=== PATIENT | female | born 1985 | race Caucasian/White ===

== ENCOUNTER 2016-06-10 12:41 | Emergency (ER) | END 2016-06-10 17:18 | disposition home or self-care (01) ==

== ENCOUNTER 2016-09-03 18:56 | Emergency (ER) | payer OTHER ==
[2016-09-03] MEDS ORDERED: KETOROLAC 30 MG/ML VIAL IVP STA (19:34)
[2016-09-03] MEDS ORDERED: MAGNESIUM SULFATE 2 GRAM 50 ML IV ONE ×2 (19:34→19:48)
[2016-09-03] MEDS ORDERED: DEXAMETHASONE 10 MG/ML VIAL IVP STA (19:34)
[2016-09-03] MEDS ORDERED: SODIUM CHLORIDE 0.9% 1,000 ML IV ONE (19:35)
[2016-09-03] MEDS ORDERED: KETOROLAC 30 MG/ML VIAL ONE (19:48)
[2016-09-03] MEDS ORDERED: DEXAMETHASONE 10 MG/ML VIAL ONE (19:48)
== END 2016-09-03 21:02 | disposition home or self-care (01) ==
DX: G43.909 Migraine, unspecified, not intractable, without status migrainosus (principal); R11.0 Nausea

== ENCOUNTER 2016-09-07 14:21 | Emergency (ER) | payer OTHER ==
[2016-09-07] MEDS ORDERED: diphenhydrAMINE INJ 50 MG/ML VIAL IVP STA (16:36)
[2016-09-07] MEDS ORDERED: DEXAMETHASONE 10 MG/ML VIAL IVP STA (16:36)
[2016-09-07] MEDS ORDERED: PROMETHAZINE INJ 25 MG in SODIUM CHLORIDE 0.9% 50 ML IV STA (16:36)
[2016-09-07] MEDS ORDERED: KETOROLAC 30 MG/ML VIAL IVP STA (16:36)
[2016-09-07] MEDS ORDERED: SODIUM CHLORIDE 0.9% 1,000 ML IV ONE ×2 (16:36→16:54)
[2016-09-07] MEDS ORDERED: diphenhydrAMINE INJ 50 MG/ML VIAL ONE (16:54)
[2016-09-07] MEDS ORDERED: PROMETHAZINE 25 MG/1 ML VIAL ONE (16:54)
[2016-09-07] MEDS ORDERED: KETOROLAC 30 MG/ML VIAL ONE (16:54)
[2016-09-07] MEDS ORDERED: SODIUM CHLORIDE 0.9% MINIBAG 100 ML IV ONE (16:54)
[2016-09-07] MEDS ORDERED: DEXAMETHASONE 10 MG/ML VIAL ONE (16:54)
== END 2016-09-07 20:03 | disposition left against medical advice (07) ==
DX: F33.2 Major depressive disorder, recurrent severe without psychotic features (principal); R45.851 Suicidal ideations; G43.909 Migraine, unspecified, not intractable, without status migrainosus; Z53.20 Procedure and treatment not carried out because of patient's decision for unspecified reasons

== ENCOUNTER 2016-09-08 10:38 | Emergency (ER) | payer OTHER ==
--- NOTE | 2016-09-08 12:10 | ED Physician Documentation ---
PD HPI MHE - Stated complaint Stated Complaint: MHE - Chief complaint Chief Complaint: MHE - History obtained from History obtained from: Patient, Friend - History of Present Illness Primary symptom: Other (31-year-old woman returns as directed this morning for continued attempts at psychiatric placement. She is suicidal with vague plan at this juncture, see my note from yesterday. She is high risk for suicide. She denies any drug or alcohol use overnight except for prescribed medications.) Review of Systems Ten Systems: 10 systems reviewed and negative Constitutional: reports: Reviewed and negative Throat: reports: Reviewed and negative Cardiac: reports: Reviewed and negative Respiratory: reports: Reviewed and negative PD PAST MEDICAL HISTORY - Past Medical History Cardiovascular: None Respiratory: None Neuro: Headache/migraine Endocrine/Autoimmune: None GI: GERD Psych: None - Past Surgical History Past Surgical History: Yes General: Cholecystectomy, Appendectomy HEENT: Tonsil/Adenoidectomy Derm: Other - Present Medications Home Medications: Ambulatory Orders Medication Instructions Recorded Confirmed Alprazolam [Xanax] 1 tab PO .FREQ PRN 09/03/16 09/08/16 Hydrocodone/Acetaminophen 0 mg PO .FREQ 09/07/16 09/08/16 [Hydrocodon-Acetaminophen 5-325] Promethazine [Phenergan] 0 mg PO .FREQ 09/07/16 09/08/16 - Allergies Allergies/Adverse Reactions: Allergies Allergy/AdvReac Type Severity Reaction Status Date / Time Penicillins Allergy Severe anaphalaxis Verified 09/08/16 11:02 acetaminophen [From Percocet] Allergy Mild gi Verified 09/08/16 11:02 cephalexin monohydrate * Allergy Mild Rash Verified 09/08/16 11:02 [From Keflex] latex Allergy Mild Rash Verified 09/08/16 11:02 levofloxacin [From Levaquin] Allergy Mild Rash Verified 09/08/16 11:02 ondansetron HCl * Allergy Mild Rash Verified 09/08/16 11:02 [From Zofran (as hydrochloride)] oxycodone HCl * Allergy Mild gi Verified 09/08/16 11:02 [From Percocet] morphine AdvReac Intermediate Anxiety Verified 09/08/16 11:02 - Social History Does the pt smoke?: No Smoking Status: Never smoker Does the pt drink ETOH?: No Does the pt have substance abuse?: No - Family History Family history: reports: Non contributory - Immunizations Immunizations are current?: Yes - POLST Patient has POLST: No PD ED PE NORMAL - Vitals Vital signs reviewed: Yes - General General: Alert and oriented X 3, Other (Still seems depressed, but not as tearful is yesterday.) - HEENT HEENT: PERRL, EOMI - Neck Neck: Supple, no meningeal sign, No bony TTP - Cardiac Cardiac: RRR, No murmur - Respiratory Respiratory: No respiratory distress, Clear bilaterally - Abdomen Abdomen: Normal bowel sounds, Soft, Non tender - Back Back: No CVA TTP, No spinal TTP - Derm Derm: Normal color, Warm and dry - Extremities Extremities: No edema, No calf tenderness / cord - Neuro Neuro: Alert and oriented X 3, Normal speech - Psych Psych: Normal mood, Normal affect Results - Vitals Vitals: Vital Signs - 24 hr 09/08/16 10:43 Temperature 36.9 C Heart Rate 70 Respiratory 18 Rate Blood Pressure 111/83 H O2 Saturation 100 Oxygen O2 Source Room air - Labs Labs: Laboratory Tests 09/08/16 09/08/16 12:20 12:20 WBC 11.3 H RBC 4.69 Hgb 13.0 Hct 38.7 MCV 82.5 MCH 27.7 MCHC 33.5 RDW 15.4 H Plt Count 280 MPV 8.0 Neut # 8.1 H Lymph # 2.4 [place] # 0.8 Eos # 0.0 Baso # 0.0 Absolute Nucleated RBC 0.00 Nucleated RBCs 0.0 Sodium 140 Potassium 3.3 L Chloride 109 Carbon Dioxide 24 Anion Gap 7.0 BUN 12 Creatinine 0.6 Estimated GFR (MDRD) 117 Glucose 133 H Calcium 9.3 Total Bilirubin 0.4 AST 19 ALT 20 Alkaline Phosphatase 73 Total Protein 6.9 Albumin 4.0 Globulin 2.9 Albumin/Globulin Ratio 1.4 Lipase 35 Ethyl Alcohol < 5.0 PD MEDICAL DECISION MAKING - ED course ED course: Social work was able to arrange for a psychiatric bed for this young woman. Potassium was repleted orally. Departure - Departure Disposition: 65 Psych Hosp/Unit DC/Xfer Clinical Impression: Depression Qualifiers: Depression Type: major depressive disorder Major depression recurrence: recurrent Active/Remission status: currently active Major depression episode severity: severe Psychotic features: without psychotic features Qualified Code(s ): F33.2 - Major depressive disorder, recurrent severe without psychotic features Condition: Stable
[2016-09-08 12:34] LABS: BASOPHILS % (AUTO) 0.3 %; EOSINOPHILS % (AUTO) 0.2 %; HCT - HEMATOCRIT 38.7 % (37.0-47.0); LYMPHOCYTES # (AUTO) 2.4 10^3/uL (1.5-3.5); LYMPHOCYTES % (AUTO) 21.1 %; MEAN CORPUSCULAR HEMOGLOBIN 27.7 pg (27.0-31.0); MEAN CORPUSCULAR HGB CONC 33.5 g/dL (32.0-36.0); MEAN CORPUSCULAR VOLUME 82.5 fL (81.0-99.0); MONOCYTES # (AUTO) 0.8 10^3/uL (0.0-1.0); MONOCYTES % (AUTO) 6.7 %; NEUTROPHILS # (AUTO) 8.1 10^3/uL (1.5-6.6); NEUTROPHILS % (AUTO) 71.7 %; RED BLOOD COUNT 4.69 10^6/uL (4.20-5.40); RED CELL DISTRIBUTION WIDTH 15.4 % (12.0-15.0); UNCORRECTED WHITE BLOOD COUNT 11.3 x10^3/uL; WHITE BLOOD COUNT 11.3 x10^3/uL (4.8-10.8)
[2016-09-08 12:46] LABS: ALBUMIN/GLOBULIN RATIO 1.4 (1.0-2.2); BILIRUBIN,TOTAL 0.4 mg/dL (0.2-1.0); BUN - BLOOD UREA NITROGEN 12 mg/dL (6-20); CALCIUM 9.3 mg/dL (8.5-10.3); CARBON DIOXIDE - CO2 24 mmol/L (21-32); CHLORIDE 109 mmol/L (101-111); CREATININE 0.6 mg/dL (0.4-1.0); GFR - MDRD 117 (>89); GLUCOSE 133 mg/dL (70-100); LIPASE 35 U/L (22-51); POTASSIUM 3.3 mmol/L (3.5-5.0); SODIUM 140 mmol/L (135-145); TOTAL PROTEIN 6.9 g/dL (6.7-8.2)
[2016-09-08] MEDS ORDERED: POTASSIUM CHLORIDE 20 MEQ TABLET PO ONE (12:58)
[2016-09-08] MEDS: POTASSIUM CHLORIDE 20 MEQ TABLET PO STA (13:01)
[2016-09-08 15:42] VITALS: BP 118/80
== END 2016-09-08 17:59 ==
LOC: ED 10:38
DX: F33.2 Major depressive disorder, recurrent severe without psychotic features (principal); R45.851 Suicidal ideations; K21.9 Gastro-esophageal reflux disease without esophagitis
CPT/HCPCS: 36415; 80053; 80306; 80320; 83690; 85025; 99283; 99284

== ENCOUNTER 2017-10-08 05:37 | Emergency (ER) | payer OTHER ==
[2017-10-08] MEDS ORDERED: HYDROcod/ACETAM 5/325 MG TABLET PO STA (05:53)
[2017-10-08] MEDS ORDERED: PROMETHAZINE 25 MG TABLET PO STA (06:02)
--- NOTE | 2017-10-08 06:06 | ED Physician Documentation ---
History of Present Illness - Stated complaint Stated Complaint: FEMALE - Chief complaint Chief Complaint: Abd Pain - History obtained from History obtained from: Patient, Family - History of Present Illness Timing: Today Pain level max: 8 Pain level now: 8 Improved by: nothing Worsened by: nothing - Additonal information Additional information: Patient is a 32-year-old female who presents to the emergency department with vaginal bleeding this morning. States she is 2 weeks status post a miscarriage. States her hCGs have been decreasing appropriately per her software product specialist. She has lower abdominal and lower back cramping. States she is still having vaginal bleeding with clots, but does not know how much she is bleeding. No lightheadedness, no dyspnea, no shortness of breath. No syncope or near syncope Review of Systems Ten Systems: 10 systems reviewed and negative Constitutional: denies: Fever, Chills Ears: denies: Ear pain Nose: denies: Rhinorrhea / runny nose, Congestion Throat: denies: Sore throat Cardiac: denies: Chest pain / pressure Respiratory: denies: Cough GI: denies: Abdominal Pain, Nausea, Vomiting, Constipation, Diarrhea, Hematemesis, Bloody / black stool : reports: Dysuria, Frequency, Hesitancy, Hematuria. denies: Now EGA Skin: denies: Rash Musculoskeletal: denies: Neck pain, Back pain Neurologic: denies: Headache PD PAST MEDICAL HISTORY - Past Medical History Cardiovascular: None Respiratory: None Neuro: Headache/migraine Endocrine/Autoimmune: None GI: GERD Psych: None - Past Surgical History Past Surgical History: Yes General: Cholecystectomy, Appendectomy HEENT: Tonsil/Adenoidectomy Derm: Other - Present Medications Home Medications: Ambulatory Orders Medication Instructions Recorded Confirmed Alprazolam [Xanax] 1 tab PO .FREQ PRN 09/03/16 09/08/16 Hydrocodone/Acetaminophen 0 mg PO .FREQ 09/07/16 09/08/16 [Hydrocodon-Acetaminophen 5-325] Promethazine [Phenergan] 0 mg PO .FREQ 09/07/16 09/08/16 - Allergies Allergies/Adverse Reactions: Allergies Allergy/AdvReac Type Severity Reaction Status Date / Time Penicillins Allergy Severe anaphalaxis Verified 10/08/17 05:44 acetaminophen [From Percocet] Allergy Mild gi Verified 10/08/17 05:44 cephalexin monohydrate * Allergy Mild Rash Verified 10/08/17 05:44 [From Keflex] latex Allergy Mild Rash Verified 10/08/17 05:44 levofloxacin [From Levaquin] Allergy Mild Rash Verified 10/08/17 05:44 ondansetron HCl * Allergy Mild Rash Verified 10/08/17 05:44 [From Zofran (as hydrochloride)] oxycodone HCl * Allergy Mild gi Verified 10/08/17 05:44 [From Percocet] morphine AdvReac Intermediate Anxiety Verified 10/08/17 05:44 - Social History Does the pt smoke?: No Smoking Status: Never smoker Does the pt drink ETOH?: No Does the pt have substance abuse?: No - Immunizations Immunizations are current?: Yes - POLST Patient has POLST: No PD ED PE NORMAL - Vitals Vital signs reviewed: Yes - General General: Alert and oriented X 3, No acute distress, Well developed/nourished - HEENT HEENT: PERRL, Moist mucous membranes - Neck Neck: Supple, no meningeal sign - Cardiac Cardiac: RRR, Strong equal pulses - Respiratory Respiratory: No respiratory distress, Clear bilaterally - Abdomen Abdomen: Soft, Non tender, Non distended - Female Female : Dieing Out Machine Operator present (Carmita Mo RN), Other (normal external exam. normal internal exam. No bleeding.) - Back Back: No spinal TTP, Other (mild B CVAT.) - Derm Derm: Warm and dry - Extremities Extremities: No edema, No calf tenderness / cord - Neuro Neuro: Alert and oriented X 3 - Psych Psych: Normal mood, Normal affect Results - Vitals Vitals: Vital Signs - 24 hr 10/08/17 10/08/17 05:42 07:25 Temperature 36.7 C Heart Rate 77 68 Respiratory 18 18 Rate Blood Pressure 123/85 H 125/87 H O2 Saturation 100 96 Oxygen O2 Source Room air - Labs Labs: Laboratory Tests 10/08/17 10/08/17 10/08/17 06:00 06:00 06:00 WBC 10.9 H RBC 4.89 Hgb 12.5 Hct 38.4 MCV 78.6 L MCH 25.5 L MCHC 32.5 RDW 15.6 H Plt Count 275 MPV 7.6 L Neut # 8.1 H Lymph # 2.1 [place] # 0.4 Eos # 0.2 Baso # 0.1 Absolute Nucleated RBC 0.00 Nucleated RBC % 0.0 Sodium 138 Potassium 3.4 L Chloride 106 Carbon Dioxide 27 Anion Gap 5.0 L BUN 10 Creatinine 0.6 Estimated GFR (MDRD) 116 Glucose 103 H Calcium 9.0 Total Bilirubin 0.2 AST 18 ALT 17 Alkaline Phosphatase 84 Total Protein 7.1 Albumin 4.0 Globulin 3.1 Albumin/Globulin Ratio 1.3 Lipase 39 HCG, Quant < 0.60 Urine Color Urine Clarity Urine pH Ur Specific [place] Urine Protein Urine Glucose (UA) Urine Ketones Urine Occult Blood Urine Nitrite Urine Bilirubin Urine Urobilinogen Ur Leukocyte Esterase Urine RBC Urine WBC Ur Squamous Epith Cells Urine Bacteria Ur Microscopic Review Urine Culture Comments Blood Type Antibody Screen 10/08/17 10/08/17 06:00 06:00 WBC RBC Hgb Hct MCV MCH MCHC RDW Plt Count MPV Neut # Lymph # [place] # Eos # Baso # Absolute Nucleated RBC Nucleated RBC % Sodium Potassium Chloride Carbon Dioxide Anion Gap BUN Creatinine Estimated GFR (MDRD) Glucose Calcium Total Bilirubin AST ALT Alkaline Phosphatase Total Protein Albumin Globulin Albumin/Globulin Ratio Lipase HCG, Quant Urine Color RED/BLOODY Urine Clarity BLOODY Urine pH 7.5 Ur Specific [place] >=1.030 H Urine Protein 100 H Urine Glucose (UA) NEGATIVE Urine Ketones NEGATIVE Urine Occult Blood LARGE H Urine Nitrite NEGATIVE Urine Bilirubin NEGATIVE Urine Urobilinogen 0.2 (NORMAL) Ur Leukocyte Esterase NEGATIVE Urine RBC TNTC H Urine WBC 0-3 Ur Squamous Epith Cells NONE SEEN Urine Bacteria None Seen Ur Microscopic Review INDICATED Urine Culture Comments NOT INDICATED Blood Type O POSITIVE Antibody Screen NEGATIVE PD MEDICAL DECISION MAKING - ED course Complexity details: reviewed results, re-evaluated patient, considered differential, d/w patient, d/w family ED course: Patient is a 32-year-old female who presents to the emergency department with what initially was thought to be vaginal bleeding, but turns out to be hematuria. No bleeding on pelvic examination. She also states that she is having dysuria and frequency, though there are no white blood cells or bacteria seen on her urinalysis. There is a family history of kidney stones. A CT scan will be ordered and followed up by Dr. Bryant. Her pain is well controlled currently. Patient is well-appearing, nontoxic. See Dr. Bryant's note for final disposition. This document was made in part using voice recognition software. While efforts are made to proofread this document, sound alike and grammatical errors may occur. Departure - Departure Clinical Impression: Hematuria Qualifiers: Hematuria type: gross Qualified Code(s): R31.0 - Gross hematuria Condition: Stable
[2017-10-08 06:13] LABS: BASOPHILS # (AUTO) 0.1 10^3/uL (0.0-0.1); BASOPHILS % (AUTO) 0.5 %; EOSINOPHILS # (AUTO) 0.2 10^3/uL (0.0-0.7); EOSINOPHILS % (AUTO) 1.5 %; HGB - HEMOGLOBIN 12.5 g/dL (12.0-16.0); LYMPHOCYTES # (AUTO) 2.1 10^3/uL (1.5-3.5); LYMPHOCYTES % (AUTO) 19.3 %; MEAN CORPUSCULAR HEMOGLOBIN 25.5 pg (27.0-31.0); MEAN CORPUSCULAR HGB CONC 32.5 g/dL (32.0-36.0); MEAN CORPUSCULAR VOLUME 78.6 fL (81.0-99.0); MEAN PLATELET VOLUME 7.6 fL (7.9-10.8); MONOCYTES # (AUTO) 0.4 10^3/uL (0.0-1.0); NEUTROPHILS # (AUTO) 8.1 10^3/uL (1.5-6.6); NEUTROPHILS % (AUTO) 74.7 %; PLT - PLATELET COUNT 275 10^3/uL (130-450); RED BLOOD COUNT 4.89 10^6/uL (4.20-5.40); RED CELL DISTRIBUTION WIDTH 15.6 % (12.0-15.0); WHITE BLOOD COUNT 10.9 x10^3/uL (4.8-10.8)
[2017-10-08 06:33] LABS: ALBUMIN/GLOBULIN RATIO 1.3 (1.0-2.2); BILIRUBIN,TOTAL 0.2 mg/dL (0.2-1.0); CREATININE 0.6 mg/dL (0.4-1.0); TOTAL PROTEIN 7.1 g/dL (6.7-8.2)
[2017-10-08 06:37] LABS: BILIRUBIN,URINE NEGATIVE (NEGATIVE); GLUCOSE, URINE (UA) NEGATIVE (NEGATIVE); KETONES,URINE (UA) NEGATIVE (NEGATIVE); LEUKOCYTE ESTERASE, URINE NEGATIVE (NEGATIVE); NITRITE,URINE NEGATIVE (NEGATIVE); OCCULT BLOOD,URINE LARGE (NEGATIVE); PH,URINE 7.5 PH (5.0-7.5); PROTEIN,URINE 100 mg/dL (NEGATIVE); UROBILINOGEN,URINE 0.2 (NORMAL) E.U./dL (NORMAL)
[2017-10-08 06:50] LABS: CLARITY,URINE BLOODY (CLEAR)
[2017-10-08 06:55] LABS: BACTERIA,URINE None Seen /HPF (None Seen); RBC,URINE TNTC /HPF (0-5); SQUAMOUS EPITHELIAL CELL,UR NONE SEEN (<= Few)
[2017-10-08] MEDS ORDERED: IOPAMIDOL-300 100 ML VIAL ONE (07:40)
[2017-10-08] MEDS ORDERED: IOPAMIDOL-300 100 ML VIAL IVP ONE (07:53)
--- NOTE | 2017-10-08 08:11 | CT Preliminary Report ---
Exam: CT ABDOMEN/PELVIS W/ IMPRESSION: 1. Negative CT abdomen and pelvis without findings to explain pain or hematuria. 2. 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 [facility] SITE ID: [id number]
--- NOTE | 2017-10-08 08:12 | CT Report ---
EXAM: CT ABDOMEN AND PELVIS EXAM DATE: 10/08/2017 07:52 AM. CLINICAL HISTORY: B flank pain, dysuria, hematuria. Prior cholecystectomy, appendectomy, abdominoplas ty. COMPARISONS: CT angiogram chest 12/27/2012. TECHNIQUE: Routine helical CT imaging was performed through the abdomen and pelvis. IV contrast: ISOV UE 300 100mL. Enteric contrast: No. Reconstructions: Coronal and sagittal. In accordance with CT protocol optimization, one or more of the following dose reduction techniques w ere utilized for this exam: automated exposure control, adjustment of mA and/or KV based on patient s ize, or use of iterative reconstructive technique. FINDINGS: Lung Bases: Minimal physiologic dependent bibasilar atelectasis. Liver: Normal. No masses. Gallbladder/Bile Ducts: Gallbladder surgically absent. No ductal dilatation. Spleen: Normal. Pancreas: Normal. Adrenal Glands: Normal. 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 No masses or hydronephrosis. No gross stones. No perinephric edema. Enhancement is normal and symmetric. Peritoneal Cavity/Bowel: Nonopacified stomach and small bowel are nondistended. The appendix is surgi logan absent. There is a small amount of formed stool in the colon. There is no focal pericolonic fat stranding. There is no lymphadenopathy, ascites, or pneumoperitoneum. Pelvic Organs: Small volume bladder. No lateral calculi. No perivesical edema. Anteverted uterus norm al in size. Ovaries are normal. Vasculature: No aneurysms or other significant abnormality. Bones: No significant abnormality. Other: Medialization of bilateral rectus abdominis muscles consistent with iron abdominoplasty. No he rnia is identified. Bilateral breast implants are incompletely visualized. IMPRESSION: 1. Negative CT abdomen and pelvis without findings to explain pain or hematuria. 2. 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 [facility] Referring Provider Line: [phone] SITE ID: [id number]
--- NOTE | 2017-10-08 08:50 | ED Physician Documentation ---
PD HPI ABD PAIN - Stated complaint Stated Complaint: FEMALE - Chief complaint Chief Complaint: Abd Pain PD PAST MEDICAL HISTORY - Past Medical History Cardiovascular: None Respiratory: None Neuro: Headache/migraine Endocrine/Autoimmune: None GI: GERD Psych: None - Past Surgical History Past Surgical History: Yes General: Cholecystectomy, Appendectomy HEENT: Tonsil/Adenoidectomy Derm: Other - Present Medications Home Medications: Ambulatory Orders Medication Instructions Recorded Confirmed Alprazolam [Xanax] 1 tab PO .FREQ PRN 09/03/16 09/08/16 Hydrocodone/Acetaminophen 0 mg PO .FREQ 09/07/16 09/08/16 [Hydrocodon-Acetaminophen 5-325] Promethazine [Phenergan] 0 mg PO .FREQ 09/07/16 09/08/16 HYDROcod/ACETAM 5/325 [Vicodin 1 - 2 ea PO Q6H PRN #20 tablet 10/08/17 5/325] Promethazine [Phenergan] 25 - 50 mg PO Q6H PRN #10 tab 10/08/17 - Allergies Allergies/Adverse Reactions: Allergies Allergy/AdvReac Type Severity Reaction Status Date / Time Penicillins Allergy Severe anaphalaxis Verified 10/08/17 05:44 acetaminophen [From Percocet] Allergy Mild gi Verified 10/08/17 05:44 cephalexin monohydrate * Allergy Mild Rash Verified 10/08/17 05:44 [From Keflex] latex Allergy Mild Rash Verified 10/08/17 05:44 levofloxacin [From Levaquin] Allergy Mild Rash Verified 10/08/17 05:44 ondansetron HCl * Allergy Mild Rash Verified 10/08/17 05:44 [From Zofran (as hydrochloride)] oxycodone HCl * Allergy Mild gi Verified 10/08/17 05:44 [From Percocet] morphine AdvReac Intermediate Anxiety Verified 10/08/17 05:44 - Social History Does the pt smoke?: No Smoking Status: Never smoker Does the pt drink ETOH?: No Does the pt have substance abuse?: No - Immunizations Immunizations are current?: Yes - POLST Patient has POLST: No Results - Vitals Vitals: Vital Signs - 24 hr 10/08/17 10/08/17 10/08/17 08:45 09:57 10:48 Heart Rate 70 68 78 Respiratory 18 16 18 Rate Blood Pressure 116/79 126/80 126/81 H O2 Saturation 96 98 98 Oxygen O2 Source Room air - Labs Labs: Laboratory Tests 10/08/17 10/08/17 10/08/17 06:00 06:00 06:00 WBC 10.9 H RBC 4.89 Hgb 12.5 Hct 38.4 MCV 78.6 L MCH 25.5 L MCHC 32.5 RDW 15.6 H Plt Count 275 MPV 7.6 L Neut # 8.1 H Lymph # 2.1 [place] # 0.4 Eos # 0.2 Baso # 0.1 Absolute Nucleated RBC 0.00 Nucleated RBC % 0.0 Sodium 138 Potassium 3.4 L Chloride 106 Carbon Dioxide 27 Anion Gap 5.0 L BUN 10 Creatinine 0.6 Estimated GFR (MDRD) 116 Glucose 103 H Calcium 9.0 Total Bilirubin 0.2 AST 18 ALT 17 Alkaline Phosphatase 84 Total Protein 7.1 Albumin 4.0 Globulin 3.1 Albumin/Globulin Ratio 1.3 Lipase 39 HCG, Quant < 0.60 Urine Color Urine Clarity Urine pH Ur Specific [place] Urine Protein Urine Glucose (UA) Urine Ketones Urine Occult Blood Urine Nitrite Urine Bilirubin Urine Urobilinogen Ur Leukocyte Esterase Urine RBC Urine WBC Ur Squamous Epith Cells Urine Bacteria Ur Microscopic Review Urine Culture Comments Blood Type Antibody Screen 10/08/17 10/08/17 06:00 06:00 WBC RBC Hgb Hct MCV MCH MCHC RDW Plt Count MPV Neut # Lymph # [place] # Eos # Baso # Absolute Nucleated RBC Nucleated RBC % Sodium Potassium Chloride Carbon Dioxide Anion Gap BUN Creatinine Estimated GFR (MDRD) Glucose Calcium Total Bilirubin AST ALT Alkaline Phosphatase Total Protein Albumin Globulin Albumin/Globulin Ratio Lipase HCG, Quant Urine Color RED/BLOODY Urine Clarity BLOODY Urine pH 7.5 Ur Specific [place] >=1.030 H Urine Protein 100 H Urine Glucose (UA) NEGATIVE Urine Ketones NEGATIVE Urine Occult Blood LARGE H Urine Nitrite NEGATIVE Urine Bilirubin NEGATIVE Urine Urobilinogen 0.2 (NORMAL) Ur Leukocyte Esterase NEGATIVE Urine RBC TNTC H Urine WBC 0-3 Ur Squamous Epith Cells NONE SEEN Urine Bacteria None Seen Ur Microscopic Review INDICATED Urine Culture Comments NOT INDICATED Blood Type O POSITIVE Antibody Screen NEGATIVE - Rads (name of study) CT abd/pelvis Radiology: Prelim report reviewed, EMP read contemporaneously, See rad report ( Negative CT abdomen and pelvis without findings to explain pain or hematuria. 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 Please see Dr. Wu's report for the initial presentation. The CT scan was unremarkable, revealing no evidence to account for the patient's symptoms. It was done with IV contrast so a ureteral stone may not have been apparent. Given the patient's right flank pain and hematuria, I suspect renal colic as the cause of her symptoms. Her urinalysis reveals no evidence to suggest urinary tract infection. test is negative, making ectopic extremely unlikely. Her presentation does not suggest ovarian torsion or ruptured ovarian cyst. She has previously undergone appendectomy. Treatment in the emergency department after she returned from CT scan, included administration of ketorolac 30 mg IV. This resolved her pain. I discussed with her and her the results of the CT scan, suspected diagnosis, symptomatic treatment and outpatient follow-up, as well as potentially worrisome signs or symptoms that should prompt reevaluation in the emergency department. She is being discharged with a prescription for Phenergan and for Vicodin, 20 tablets. Departure - Departure Disposition: 01 Home, Self Care Clinical Impression: Renal colic on right side Hematuria Qualifiers: Hematuria type: gross Qualified Code(s): R31.0 - Gross hematuria Condition: Stable Instructions: ED Stone Renal W Colic Follow-Up: [facility] [Provider Group] Prescriptions: HYDROcod/ACETAM 5/325 [Vicodin 5/325] 1 - 2 ea PO Q6H PRN #20 tablet PRN Reason: Pain Promethazine [Phenergan] 25 - 50 mg PO Q6H PRN #10 tab PRN Reason: Nausea / Vomiting Comments: Drink plenty of fluids. You can use Vicodin as prescribed if needed for pain. You can use Phenergan as prescribed if needed for nausea. Follow up with your primary physician within 1 week. Call to schedule appointment. Return to the emergency department if you develop increasing pain, fever, persistent vomiting, or otherwise worsening symptoms. Discharge Date/Time: 10/08/17 10:52
[2017-10-08] MEDS ORDERED: KETOROLAC 60 MG/2 ML VIAL IVP STA (08:55)
[2017-10-08 10:48] VITALS: BP 126/81
== END 2017-10-08 10:52 | disposition home or self-care (01) ==
LOC: ED 05:37
DX: R31.0 Gross hematuria (principal)
CPT/HCPCS: 36415; 74177; 80053; 81001; 83690; 84702; 85025; 86850; 86900; 86901; 96374; 99284; A9270; Q0169; Q9967; 81003; 87086

== ENCOUNTER 2017-11-05 09:08 | Emergency (ER) | payer OTHER ==
[2017-11-05] MEDS ORDERED: ACETAMINOPHEN 325 MG TABLET PO STA (11:24)
--- NOTE | 2017-11-05 11:27 | ED Physician Documentation ---
History of Present Illness - Stated complaint Stated Complaint: L SIDE [id number] - Chief complaint Chief Complaint: Abd Pain - Additonal information Additional information: hx from pt miscarriage 09/27 now again exact EGA unknown but had a neg HCG in our ER 10/08 so presume < 1 month seen at [facility] 3 days ago and had sono and no IUP seen possibly a L ovarian cyst developed LLQ pain last night no vag bleed or discharge states blood type O + Review of Systems Constitutional: denies: Fever Cardiac: denies: Chest pain / pressure Respiratory: denies: Dyspnea GI: reports: Abdominal Pain : reports: Now EGA. denies: Discharge, Vaginal bleeding PD PAST MEDICAL HISTORY - Past Medical History Cardiovascular: None Respiratory: None Endocrine/Autoimmune: None GI: GERD Psych: None - Past Surgical History Past Surgical History: Yes General: Cholecystectomy, Appendectomy HEENT: Tonsil/Adenoidectomy Derm: Other - Present Medications Home Medications: Ambulatory Orders Medication Instructions Recorded Confirmed Promethazine [Phenergan] 25 - 50 mg PO Q6H PRN #10 tab 10/08/17 Pnv No.122/Iron/Folic Acid 1 each PO DAILY #30 tablet 11/05/17 [ Multi Tablet] - Allergies Allergies/Adverse Reactions: Allergies Allergy/AdvReac Type Severity Reaction Status Date / Time Penicillins Allergy Severe anaphalaxis Verified 11/05/17 09:42 acetaminophen [From Percocet] Allergy Mild gi Verified 10/08/17 05:44 cephalexin monohydrate * Allergy Mild Rash Verified 11/05/17 09:42 [From Keflex] latex Allergy Mild Rash Verified 11/05/17 09:42 levofloxacin [From Levaquin] Allergy Mild Rash Verified 11/05/17 09:42 ondansetron HCl * Allergy Mild Rash Verified 11/05/17 09:42 [From Zofran (as hydrochloride)] oxycodone HCl * Allergy Mild gi Verified 11/05/17 09:42 [From Percocet] morphine AdvReac Intermediate Anxiety Verified 11/05/17 09:42 - Social History Does the pt smoke?: No Smoking Status: Never smoker Does the pt drink ETOH?: No Does the pt have substance abuse?: No - Immunizations Immunizations are current?: Yes - POLST Patient has POLST: No PD ED PE NORMAL - Vitals Vital signs reviewed: Yes - Cardiac Cardiac: RRR - Respiratory Respiratory: No respiratory distress - Abdomen Abdomen: Other (sig lower abd TTP L > R with vol guarding) - Derm Derm: Normal color - Neuro Neuro: Alert and oriented X 3 Results - Vitals Vitals: Vital Signs - 24 hr 11/05/17 11/05/17 09:39 12:59 Temperature 36.7 C Heart Rate 72 72 Respiratory 16 16 Rate Blood Pressure 139/74 H 122/86 H O2 Saturation 100 Oxygen O2 Source Room air - Labs Labs: Laboratory Tests 11/05/17 11/05/17 11/05/17 09:52 09:52 11:25 HCG, Quant 5222.00 Urine Color YELLOW Urine Clarity CLEAR Urine pH 6.5 Ur Specific [place] 1.020 Urine Protein NEGATIVE Urine Glucose (UA) NEGATIVE Urine Ketones NEGATIVE Urine Occult Blood NEGATIVE Urine Nitrite NEGATIVE Urine Bilirubin NEGATIVE Urine Urobilinogen 0.2 (NORMAL) Ur Leukocyte Esterase NEGATIVE Ur Microscopic Review NOT INDICATED Urine Culture Comments NOT INDICATED Blood Type O POSITIVE - Rads (name of study) sono Radiology: See rad report (_ intrauterine gest sac so early for pole or yolk sac, 4w3d, lkeft corpus luteum cyst, trace FF) PD MEDICAL DECISION MAKING - ED course ED course: pt was seen at [facility] in last few days, had a pelvic, had non diag sono, states quant was 5500 today quant 5222 - concern for ectopic sono shows IUP no assisted fertility so ectopic ruled out quant concerning but two diff labs - pt advised could be a miscarriage advised to fup OB tomorrow or Thursday Departure - Departure Disposition: 01 Home, Self Care Clinical Impression: Normal IUP (intrauterine ) on ultrasound Qualifiers: Trimester: first trimester Qualified Code(s): Z34.91 - Encounter for supervision of normal , unspecified, first trimester Condition: Good Instructions: ED Care Follow-Up: [facility] Natasha Saini [Provider Group] Prescriptions: Pnv No.122/Iron/Folic Acid [ Multi Tablet] 1 each PO DAILY #30 tablet Comments: Your are The in in the uterus Your are 4 weeks and 3 days along and your due date will be about Jul 11 2018 There is a cyst on the left ovary that has leaked some fluid and that is likely causing some of your discomfort It is possible that the pain could indicate you might be having a miscarriage - but right now the ultrasound is reassuring You can go home Recommend tylenol for the pain Take your vitamins Follow up with OB at [facility] Return if worse
[2017-11-05 11:45] LABS: BILIRUBIN,URINE NEGATIVE (NEGATIVE); GLUCOSE, URINE (UA) NEGATIVE (NEGATIVE); KETONES,URINE (UA) NEGATIVE (NEGATIVE); LEUKOCYTE ESTERASE, URINE NEGATIVE (NEGATIVE); NITRITE,URINE NEGATIVE (NEGATIVE); OCCULT BLOOD,URINE NEGATIVE (NEGATIVE); PH,URINE 6.5 PH (5.0-7.5); PROTEIN,URINE NEGATIVE (NEGATIVE); UROBILINOGEN,URINE 0.2 (NORMAL) E.U./dL (NORMAL)
[2017-11-05 11:46] LABS: CLARITY,URINE CLEAR (CLEAR)
[2017-11-05 14:02] VITALS: BP 124/79
--- NOTE | 2017-11-08 12:17 | Ultrasound Report ---
FIRST TRIMESTER OB ULTRASOUND WITH TRANSVAGINAL: 11/05/2017 CLINICAL INDICATION: Early , pain, uncertain LMP. TECHNIQUE: Real-time scanning was performed with sales representative publications static images obtained. LAST MENSTRUAL PERIOD: unsure Clinical Age: 4 weeks 3 days (gestational sac MGSD) US Age: 4 weeks 3 days EFW Hadlock: -- EFW% Hadlock: -- Heart Rate: n/a EDC: 07/11/2018 (gestational sac) US EDC: 07/11/2018 BPD [place]: -- HC Hadlock: -- AC Hadlock: -- FL Hadlock: -- Presentation: -- Placental Location: n/a Cervical Length: -- closed Amniotic Fluid: -- FINDINGS There is a gestational sac seen within the endometrial canal. Mean sac diameter is 6 mm, too small to visualize yolk sac or pole. By mean gestational sac size, the dates 4 weeks 3 days. No perigestational hemorrhage is seen. The right ovary measures 2.5 x 2.1 x 1.6 cm, and appears unremarkable. The left ovary measures 3.7 x 2.5 x 2.4 cm, and demonstrates a corpus luteum. A small amount of free fluid is seen adjacent to the left ovary. IMPRESSION 1. GESTATIONAL SAC VISUALIZED IN THE ENDOMETRIAL CANAL, WITH THE DATING 4 WEEKS 3 DAYS BY GESTATIONAL SAC SIZE. THE GESTATIONAL SAC IS TOO SMALL TO ALLOW VISUALIZATION OF YOLK SAC OR POLE. TRACE FREE FLUID IN THE LEFT ADNEXA. 2. FOLLOW UP SERIAL QUANTITATIVE BETA HCG, AND CONSIDER RESCANNING IN 2 WEEKS FOR VIABILITY, IF CLINICALLY WARRANTED. TD: 11/05/2017 12:56 [place]IN
== END 2017-11-05 14:03 | disposition home or self-care (01) ==
LOC: ED 09:08
DX: Z34.91 Encounter for supervision of normal pregnancy, unspecified, first trimester (principal); Z3A.01 Less than 8 weeks gestation of pregnancy
CPT/HCPCS: 36415; 76801; 76817; 81003; 84702; 86900; 86901; 99283; A9270; 81001; 87086

== ENCOUNTER 2018-03-17 18:01 | Outpatient (CLI) | payer OTHER ==
[2018-03-17 19:22] LABS: BASOPHILS # (AUTO) 0.1 10^3/uL (0.0-0.1); BASOPHILS % (AUTO) 0.8 %; EOSINOPHILS # (AUTO) 0.1 10^3/uL (0.0-0.7); EOSINOPHILS % (AUTO) 1.9 %; HGB - HEMOGLOBIN 11.1 g/dL (12.0-16.0); LYMPHOCYTES # (AUTO) 1.3 10^3/uL (1.5-3.5); LYMPHOCYTES % (AUTO) 19.1 %; MEAN CORPUSCULAR HEMOGLOBIN 28.2 pg (27.0-31.0); MEAN CORPUSCULAR HGB CONC 33.8 g/dL (32.0-36.0); MEAN CORPUSCULAR VOLUME 83.3 fL (81.0-99.0); MEAN PLATELET VOLUME 8.1 fL (7.9-10.8); MONOCYTES # (AUTO) 0.4 10^3/uL (0.0-1.0); MONOCYTES % (AUTO) 6.1 %; NEUTROPHILS # (AUTO) 4.7 10^3/uL (1.5-6.6); NEUTROPHILS % (AUTO) 72.1 %; PLT - PLATELET COUNT 203 10^3/uL (130-450); RED BLOOD COUNT 3.93 10^6/uL (4.20-5.40); RED CELL DISTRIBUTION WIDTH 21.9 % (12.0-15.0); WHITE BLOOD COUNT 6.6 x10^3/uL (4.8-10.8)
[2018-03-17 19:25] LABS: ALBUMIN/GLOBULIN RATIO 0.9 (1.0-2.2); BILIRUBIN,TOTAL 0.2 mg/dL (0.2-1.0); CALCIUM 8.6 mg/dL (8.5-10.3); CREATININE 0.4 mg/dL (0.4-1.0); TOTAL PROTEIN 6.3 g/dL (6.7-8.2)
[2018-03-17 19:37] LABS: PLATELET ESTIMATE, MANUAL NORMAL (130-450,000) (NORMAL); PLATELET MORPHOLOGY NORMAL APPEARANCE (NORMAL)
[2018-03-17 19:38] LABS: RBC MORPHOLOGY (MULTIPLE) 2+ ANISOCYTOSIS (NORMAL)
--- NOTE | 2018-03-17 19:47 | PROVIDER PROGRESS NOTE ---
Subjective - Prog Note Date Prog Note Date: 03/17/18 Prog Note Time: 19:30 - Subjective Subjective: 24-week 5-day gestation Hyperemesis gravidarum TPN therapy URI symptoms Unremitting nausea today precluding oral hydration Adult attention deficit disorder Nell Terrell is a 33-year-old 6 para 3 at 34 weeks 5 days gestation based on LMP and 6-week ultrasound. [facility]. She developed severe hyperemesis gravidarum and care was transferred to the high risk clinic at [facility]. For nutritional support she was good begun on TPN. Over the last 36 hours she is not been able to maintain her usual oral water intake. Today she felt malaise and URI symptoms including sinus pressure and postnasal drip. Her children have been sick. She did not declined her influenza injection. Currently she has no fevers chills productive cough. She has no diarrhea abdominal pain or pelvic pain. There is no vaginal discharge, bleeding pelvic pressure or uterine contractions. She is failed numerous antiemetics including Reglan, and Zofran actually creates more nausea. Phenergan is an effective agent for nausea control. Objective - Vital Signs/Intake & Output Vital Signs: Vital Signs x48h Temp Pulse Resp BP Pulse Ox 03/17/18 18:13 98.8 F 93 18 109/62 98 - Lab Results Fish Bones: 03/17/18 19:10 03/17/18 19:10 Other Labs: Lab Results x24hrs 03/17/18 Range/Units 19:10 Sodium 136 (135-145) mmol/L Potassium 3.5 (3.5-5.0) mmol/L Chloride 105 (101-111) mmol/L Carbon Dioxide 23 (21-32) mmol/L Anion Gap 8.0 (6-13) BUN 12 (6-20) mg/dL Creatinine 0.4 (0.4-1.0) mg/dL Estimated GFR (MDRD) 184 (>89) Glucose 109 H (70-100) mg/dL Calcium 8.6 (8.5-10.3) mg/dL Total Bilirubin 0.2 (0.2-1.0) mg/dL AST 29 (10-42) IU/L ALT 35 (10-60) IU/L Alkaline Phosphatase 122 H (42-121) IU/L Total Protein 6.3 L (6.7-8.2) g/dL Albumin 3.0 L (3.2-5.5) g/dL Globulin 3.3 (2.1-4.2) g/dL Albumin/Globulin Ratio 0.9 L (1.0-2.2) Exam - Exam Vital Signs: Vital Signs (72 hours) 03/17/18 18:13 Temperature 98.8 F Heart Rate [ 93 Monitoring electrodes] Respiratory 18 Rate Blood Pressure 109/62 [Left Brachial artery] O2 Saturation 98 General: Oriented x3, Cooperative HEENT: Mucous membr. moist/pink Lungs: Clear to auscultation Cardiovascular: Regular rate, Normal S1, Normal S2, No murmurs Abdomen: No tenderness, No hepatospenomegaly, Other (Uterus appropriate size for 24 weeks flaccid no contractions; heart tones present) Extremities: No edema Skin: No rashes Neurological: Normal speech, Sensation intact Psych/Mental Status: Mental status NL, Mood NL Assess/Plan - Additional Planning My Orders: My Active Orders 03/17/18 18:05 OB Triage [RC] .ONCE 03/17/18 19:00 UA w/ MICROSCOPIC, CULT IF [URIN] Stat Assessment/Plan - Assessment/Plan Assessment: This is a 24-week complicated by severe hyperemesis requiring TPN nutritional support. TPN is supplemented by oral water intake which is been disturbed by flare in nausea probably secondary to viral syndrome or influenza. Currently her electrolytes are in balance but clinically she appears d ehydrated. Supplemental IV hydration with antiemetic, Phenergan will be useful particularly . Plan: Bolus of lactated Ringer's (1 L with 25 mg of Phenergan. Followed by a second bag of lactated Ringer's Influenza and strep cultures Patient is advised to see her general medical doctor tomorrow Patient should consider obtaining lodging possibly at [facility] if her TPN and management becomes complex Copies to Dr. Langston Copies to [facility] clinic
[2018-03-17] MEDS ORDERED: LACTATED RINGERS 1,000 ML IV ONE ×2 (19:57→20:32)
[2018-03-17] MEDS ORDERED: PROMETHAZINE INJ 25 MG in SODIUM CHLORIDE 0.9% 50 ML IV SCH (20:00)
[2018-03-17] MEDS ORDERED: PROMETHAZINE 25 MG/1 ML VIAL ONE (20:08)
[2018-03-17] MEDS ORDERED: SODIUM CHLORIDE FLUSH 0.9% 10 ML SYRINGE ONE (20:41)
[2018-03-17 21:31] LABS: BILIRUBIN,URINE NEGATIVE (NEGATIVE); GLUCOSE, URINE (UA) NEGATIVE (NEGATIVE); KETONES,URINE (UA) NEGATIVE (NEGATIVE); LEUKOCYTE ESTERASE, URINE NEGATIVE (NEGATIVE); NITRITE,URINE NEGATIVE (NEGATIVE); OCCULT BLOOD,URINE NEGATIVE (NEGATIVE); PROTEIN,URINE NEGATIVE (NEGATIVE); UROBILINOGEN,URINE 0.2 (NORMAL) E.U./dL (NORMAL)
[2018-03-17 21:34] LABS: CLARITY,URINE CLEAR (CLEAR)
[2018-03-17 21:42] LABS: BACTERIA,URINE Rare /HPF (None Seen); MUCUS,URINE Marked Strands; RBC,URINE 0-5 /HPF (0-5); SQUAMOUS EPITHELIAL CELL,UR RARE Squamous (<= Few)
[2018-03-18 00:15] VITALS: BP 95/54
== END 2018-03-18 00:18 | disposition home or self-care (01) ==
LOC: WFO 18:01 → FBP 18:04 → WFO 03-18 00:18
PROVIDERS: ATTEND Obstetrics & Gynecology
DX: O21.2 Late vomiting of pregnancy (principal); O99.283 Endocrine, nutritional and metabolic diseases complicating pregnancy, third trimester; E86.0 Dehydration; O99.343 Other mental disorders complicating pregnancy, third trimester; F90.9 Attention-deficit hyperactivity disorder, unspecified type; O99.89 Other specified diseases and conditions complicating pregnancy, childbirth and the puerperium; R09.82 Postnasal drip; Z3A.34 34 weeks gestation of pregnancy
CPT/HCPCS: 36415; 80053; 81001; 85025; 87070; 87077; 87275; 87276; 87430; 96365; 99212; J7040; J7120; 87086

== ENCOUNTER 2018-03-22 08:00 | Outpatient (CLI) | payer OTHER ==
[2018-03-22 18:51] LABS: ALBUMIN 3.1 g/dL (3.2-5.5); BILIRUBIN,TOTAL 0.3 mg/dL (0.2-1.0); CALCIUM 8.9 mg/dL (8.5-10.3); CREATININE 0.4 mg/dL (0.4-1.0); MAGNESIUM 1.6 mg/dL (1.7-2.8); PHOSPHORUS 4.7 mg/dL (2.5-4.6); TOTAL PROTEIN 6.3 g/dL (6.7-8.2)
[2018-03-22 18:59] LABS: BASOPHILS % (AUTO) 0.4 %; EOSINOPHILS # (AUTO) 0.1 10^3/uL (0.0-0.7); EOSINOPHILS % (AUTO) 1.3 %; HGB - HEMOGLOBIN 12.1 g/dL (12.0-16.0); LYMPHOCYTES # (AUTO) 1.7 10^3/uL (1.5-3.5); LYMPHOCYTES % (AUTO) 21.9 %; MEAN CORPUSCULAR HEMOGLOBIN 28.3 pg (27.0-31.0); MEAN CORPUSCULAR HGB CONC 33.4 g/dL (32.0-36.0); MEAN CORPUSCULAR VOLUME 84.9 fL (81.0-99.0); MONOCYTES # (AUTO) 0.4 10^3/uL (0.0-1.0); MONOCYTES % (AUTO) 4.6 %; NEUTROPHILS # (AUTO) 5.4 10^3/uL (1.5-6.6); NEUTROPHILS % (AUTO) 71.8 %; PLT - PLATELET COUNT 203 10^3/uL (130-450); RED BLOOD COUNT 4.26 10^6/uL (4.20-5.40); RED CELL DISTRIBUTION WIDTH 21.2 % (12.0-15.0); WHITE BLOOD COUNT 7.5 x10^3/uL (4.8-10.8)
[2018-03-22 19:30] LABS: PLATELET ESTIMATE, MANUAL NORMAL (130-450,000) (NORMAL); PLATELET MORPHOLOGY NORMAL APPEARANCE (NORMAL); RBC MORPHOLOGY (MULTIPLE) 2+ ANISOCYTOSIS (NORMAL)
== END 2018-03-22 08:01 | disposition home or self-care (01) ==
LOC: LAB.R 08:00
DX: O21.1 Hyperemesis gravidarum with metabolic disturbance (principal); R11.2 Nausea with vomiting, unspecified
CPT/HCPCS: 80053; 83735; 84100; 84478; 85025

== ENCOUNTER 2019-11-05 16:36 | Outpatient (CLI) | payer OTHER | END 2019-11-05 16:37 | disposition short-term general hospital (02) | LOC: EMS 16:36 | PROVIDERS: ATTEND Surgery | DX: O60.03 Preterm labor without delivery, third trimester (principal); O14.13 Severe pre-eclampsia, third trimester; Z3A.32 32 weeks gestation of pregnancy | CPT/HCPCS: A0425; A0426 ==

== ENCOUNTER 2019-11-23 21:28 | Outpatient (CLI) | payer OTHER ==
[2019-11-23] MEDS ORDERED: LABETALOL 100 MG TABLET PO SCH (21:47)
[2019-11-23] MEDS ORDERED: fentaNYL 250 MCG/5 ML VIAL IVP PRN (21:49)
[2019-11-23] MEDS ORDERED: VENLAFAXINE ER 75 MG CAPSULE PO SCH (21:49)
[2019-11-23] MEDS ORDERED: LACTATED RINGERS 1,000 ML IV ONE (21:53)
[2019-11-23 21:57] LABS: HGB - HEMOGLOBIN 10.8 g/dL (12.0-16.0); MEAN CORPUSCULAR HGB CONC 33.2 g/dL (32.0-36.0); MEAN CORPUSCULAR VOLUME 84.2 fL (81.0-99.0); MEAN PLATELET VOLUME 10.6 fL (7.9-10.8); RED BLOOD COUNT 3.86 10^6/uL (4.20-5.40); RED CELL DISTRIBUTION WIDTH 14.2 % (12.0-15.0); WHITE BLOOD COUNT 9.2 x10^3/uL (4.8-10.8)
--- NOTE | 2019-11-23 22:03 | HISTORY & PHYSICAL EXAMINATION ---
Admit History - Visit Reason Visit Reason: Contractions (34yo WALTER 12/27 at 35w0d by LMP c/w first trimester scan (per patient report) GBS neg on 11/04 presents with c/o contractions since this morning, increasing in frequency and intensity over the course of the day. No bleeding or fluid leak. Noting movement. Also c/o nausea all day.) - : 7 Parity: 4 Premature: 2 Ectopic: 0 : 2 Care: positive: Other ([facility]) Risk/History: positive: labor <37 weeks, Pre-eclampsia Complications This : positive: Pre-eclampsia, Other (Maternal obesity, preeclampsia, depression/anxiety, h/o deliveries X2 at 36w and last preg at 32 weeks, anemia. Records not available on admission) Smoking Status: Never smoker - Mother's Labs Mother's Blood Type: positive: A Mother's RH: positive: Positive GBS: positive: Group B Step Negative Meds/Allgy - Home Medications Home Medications: Ambulatory Orders Medication Instructions Recorded Confirmed Promethazine [Phenergan] 25 - 50 mg PO Q6H PRN #10 tab 10/08/17 No122/Iron/Folic Acid 1 each PO DAILY #30 tablet 11/05/17 [ Multi Tablet] Labetalol [Trandate] 200 mg PO TID 11/23/19 11/23/19 Venlafaxine ER [Effexor ER] 150 mg PO DAILY 11/23/19 11/23/19 - Allergies Allergies/Adverse Reactions: Allergies Allergy/AdvReac Type Severity Reaction Status Date / Time Penicillins Allergy Severe anaphalaxis Verified 11/05/17 09:42 acetaminophen [From Percocet] Allergy Mild gi Verified 10/08/17 05:44 cephalexin monohydrate * Allergy Mild Rash Verified 11/05/17 09:42 [From Keflex] latex Allergy Mild Rash Verified 11/05/17 09:42 levofloxacin [From Levaquin] Allergy Mild Rash Verified 11/05/17 09:42 ondansetron HCl * Allergy Mild Rash Verified 11/05/17 09:42 [From Zofran (as hydrochloride)] morphine AdvReac Intermediate Anxiety Verified 11/05/17 09:42 oxycodone HCl * AdvReac Mild nausea/vomi Verified 11/23/19 21:42 [From Percocet] ting Review of Systems - Constitutional Constitutional: denies: Fever, Chills - Eyes Eyes: reports: Spots in vision - Cardiovascular Cariovascular: denies: Palpitations, Chest pain - Respiratory Respiratory: denies: Cough - Gastrointestinal Gastrointestinal: reports: Abdominal pain (Contractions), Nausea. denies: Change in bowel habits, Vomiting - Integumentary Integumentary: denies: Rash - Neurological Neurological: reports: Headache - Hematologic/Lymphatic Hematologic/Lymphatic: reports: Anemia Physical - Abdominal Exam Vital Signs: Temp Pulse Resp BP Pulse Ox 98.2 F 83 24 119/70 99 11/23/19 21:30 11/23/19 21:30 11/23/19 21:30 11/23/19 21:30 11/23/19 21:30 Contraction Frequency (min/apart): q5-6 Contraction Intensity: positive: Moderate Uterine Resting Tone: positive: Soft - Monitoring Heart Rate Baseline: 140's Strip Review: positive: Category I - Presentation Presentation: positive: Vertex - Vaginal Exam Membranes: positive: Membranes intact Dilation (in cm): 1-2 Station: positive: -2 Cervical Position: positive: Midposition - Speculum Exam Speculum Exam Performed: positive: No Plan for Labor - Plan For Labor Plan for Labor: 34yo at 35w0d with contractions, h/o delivery x2, also complicated by preeclampsia, BP's now stable. GBS neg on 11/04. Beta complete x2 last on 11/04 Plan transfer to [facility] secondary to gestational age. Labs, CBC, CMP, UA, PC ratio pending IV hydration Pain meds as needed. Exam - Exam Vital Signs: Vital Signs (72 hours) 11/23/19 21:30 Temperature 98.2 F Heart Rate [ 83 Radial] Respiratory 24 Rate Blood Pressure 119/70 [Left Brachial artery] O2 Saturation 99 General: Alert, Oriented x3, Mild distress Lungs: Clear to auscultation, Normal air movement Cardiovascular: Regular rate (3/6 systolic murmur at LSB) Abdomen: Soft, No tenderness (Gravid S=D) Neurological: Normal speech Psych/Mental Status: Mental status NL
[2019-11-23 22:07] LABS: BILIRUBIN,URINE NEGATIVE (NEGATIVE); GLUCOSE, URINE (UA) NEGATIVE (NEGATIVE); KETONES,URINE (UA) >=80 mg/dL (NEGATIVE); LEUKOCYTE ESTERASE, URINE NEGATIVE (NEGATIVE); NITRITE,URINE NEGATIVE (NEGATIVE); OCCULT BLOOD,URINE NEGATIVE (NEGATIVE); PROTEIN,URINE NEGATIVE (NEGATIVE); UROBILINOGEN,URINE 0.2 (NORMAL) E.U./dL (NORMAL)
[2019-11-23 22:09] LABS: ALBUMIN 2.8 g/dL (3.2-5.5); ALBUMIN/GLOBULIN RATIO 0.7 (1.0-2.2); BILIRUBIN,TOTAL 0.8 mg/dL (0.2-1.0); CALCIUM 8.9 mg/dL (8.5-10.3); CLARITY,URINE CLEAR (CLEAR); CREATININE 0.3 mg/dL (0.4-1.0); TOTAL PROTEIN 6.7 g/dL (6.7-8.2)
[2019-11-23] MEDS ORDERED: ACETAMINOPHEN 500 MG TABLET PO SCH (22:13)
[2019-11-23] MEDS ORDERED: fentaNYL 100 MCG/2 ML VIAL IVP PRN (22:16)
[2019-11-23 22:18] LABS: CREATININE,URINE 88.8 mg/dL; PROTEIN/CREATININE RATIO,URINE 0.3 (<=0.2)
--- NOTE | 2019-11-23 22:49 | PROVIDER PROGRESS NOTE ---
Subjective - Prog Note Date Prog Note Date: 11/23/19 Prog Note Time: 22:38 - Subjective Subjective: Feeling better with meds. VSS afeb Exam deferred Labs here still pending Have received records Abn glucola: 148>>no 3hGTT done HIV/HepB/RPR NR COVID neg 11/04 H/O frequent migraines Borderline chronic HTN>now superimposed preeclampsia H/O cholestasis last H/O IBS GERD H/O platelet dysfunction H/O depression Panic d/o ADHD A/P Stable for trasport. Accepted by [facility]. In process. Objective - Vital Signs/Intake & Output Vital Signs: Vital Signs x48h Temp Pulse Resp BP Pulse Ox 11/23/19 21:30 98.2 F 83 24 119/70 99 - Lab Results Fish Bones: 11/23/19 21:49 11/23/19 21:49 Other Labs: Lab Results x24hrs 11/23/19 11/23/19 11/23/19 Range/Units 21:49 21:49 21:49 WBC (4.8-10.8) x10^3/uL RBC (4.20-5.40) 10^6/uL Hgb (12.0-16.0) g/dL Hct (37.0-47.0) % MCV (81.0-99.0) fL MCH (27.0-31.0) pg MCHC (32.0-36.0) g/dL RDW (12.0-15.0) % Plt Count (130-450) 10^3/uL MPV (7.9-10.8) fL Sodium 135 (135-145) mmol/L Potassium 3.7 (3.5-5.0) mmol/L Chloride 102 (101-111) mmol/L Carbon Dioxide 18 L (21-32) mmol/L Anion Gap 15.0 H (6-13) BUN 10 (6-20) mg/dL Creatinine 0.3 L (0.4-1.0) mg/dL Estimated GFR (MDRD) 255 (>89) Glucose 76 (70-100) mg/dL Calcium 8.9 (8.5-10.3) mg/dL Total Bilirubin 0.8 (0.2-1.0) mg/dL AST 35 (10-42) IU/L ALT 23 (10-60) IU/L Alkaline Phosphatase 144 H (42-121) IU/L Total Protein 6.7 (6.7-8.2) g/dL Albumin 2.8 L (3.2-5.5) g/dL Globulin 3.9 (2.1-4.2) g/dL Albumin/Globulin Ratio 0.7 L (1.0-2.2) Urine Color YELLOW Urine Clarity CLEAR (CLEAR) Urine pH 6.0 (5.0-7.5) PH Ur Specific [place] 1.020 (1.002-1.030) Urine Protein NEGATIVE (NEGATIVE) mg/dL Urine Glucose (UA) NEGATIVE (NEGATIVE) mg/dL Urine Ketones >=80 H (NEGATIVE) mg/dL Urine Occult Blood NEGATIVE (NEGATIVE) Urine Nitrite NEGATIVE (NEGATIVE) Urine Bilirubin NEGATIVE (NEGATIVE) Urine Urobilinogen 0.2 (NORMAL) (NORMAL) E.U./dL Ur Leukocyte Esterase NEGATIVE (NEGATIVE) Urine Creatinine 88.8 mg/dL Ur Total Protein Timed 24 mg/dL Protein/Creatinin Ratio 0.3 H (<=0.2) 11/23/19 Range/Units 21:49 WBC 9.2 (4.8-10.8) x10^3/uL RBC 3.86 L (4.20-5.40) 10^6/uL Hgb 10.8 L (12.0-16.0) g/dL Hct 32.5 L (37.0-47.0) % MCV 84.2 (81.0-99.0) fL MCH 28.0 (27.0-31.0) pg MCHC 33.2 (32.0-36.0) g/dL RDW 14.2 (12.0-15.0) % Plt Count 244 (130-450) 10^3/uL MPV 10.6 (7.9-10.8) fL Sodium (135-145) mmol/L Potassium (3.5-5.0) mmol/L Chloride (101-111) mmol/L Carbon Dioxide (21-32) mmol/L Anion Gap (6-13) BUN (6-20) mg/dL Creatinine (0.4-1.0) mg/dL Estimated GFR (MDRD) (>89) Glucose (70-100) mg/dL Calcium (8.5-10.3) mg/dL Total Bilirubin (0.2-1.0) mg/dL AST (10-42) IU/L ALT (10-60) IU/L Alkaline Phosphatase (42-121) IU/L Total Protein (6.7-8.2) g/dL Albumin (3.2-5.5) g/dL Globulin (2.1-4.2) g/dL Albumin/Globulin Ratio (1.0-2.2) Urine Color Urine Clarity (CLEAR) Urine pH (5.0-7.5) PH Ur Specific [place] (1.002-1.030) Urine Protein (NEGATIVE) mg/dL Urine Glucose (UA) (NEGATIVE) mg/dL Urine Ketones (NEGATIVE) mg/dL Urine Occult Blood (NEGATIVE) Urine Nitrite (NEGATIVE) Urine Bilirubin (NEGATIVE) Urine Urobilinogen (NORMAL) E.U./dL Ur Leukocyte Esterase (NEGATIVE) Urine Creatinine mg/dL Ur Total Protein Timed mg/dL Protein/Creatinin Ratio (<=0.2)
--- NOTE | 2019-11-23 22:53 | DISCHARGE TRANSFER SUMMARY ---
Transfer Summary Admit Date: 11/23/19 Transfer Date: 11/23/19 Discharging Provider: Imelda Morel Code Status: Attempt Resuscitation Condition at Discharge: Good Discharge Disposition: 02 Transfer Acute Care Hosp Transfer to Location: [facility] - DIAGNOSES Admission Diagnoses: at 35w0d with labor Discharge Diagnoses with Status of Each Condition: Stable for transport - HPI History of Present Illness: 34yo WALTER 12/27 at 35w0d by LMP c/w first trimester scan (per patient report) GBS neg on 11/04 presents with c/o contractions since this morning, increasing in frequency and intensity over the course of the day. No bleeding or fluid leak. Noting movement. Also c/o nausea all day. GBS neg on 11/04 per patient report. Beta complete x2 last 11/04 - HOSPITAL COURSE Hospital Course: On exam, cervix was found to be unchanged from exam done on 11/04 prior to transport. She has been having contractions all day and was deemed stable for transport. She was given pain medication and was hydrated with improvement in her complaints. Tracing remained Category 1 BP and vital signs stable Vertex by scan, adequate amniotic fluid volume - ALLERGIES Allergies/Adverse Reactions: Allergies Allergy/AdvReac Type Severity Reaction Status Date / Time Penicillins Allergy Severe anaphalaxis Verified 11/05/17 09:42 cephalexin monohydrate * Allergy Mild Rash Verified 11/05/17 09:42 [From Keflex] latex Allergy Mild Rash Verified 11/05/17 09:42 levofloxacin [From Levaquin] Allergy Mild Rash Verified 11/05/17 09:42 ondansetron HCl * Allergy Mild Rash Verified 11/05/17 09:42 [From Zofran (as hydrochloride)] morphine AdvReac Intermediate Anxiety Verified 11/05/17 09:42 oxycodone HCl * AdvReac Mild nausea/vomi Verified 11/23/19 21:42 [From Percocet] ting - MEDICATIONS Home Medications: Ambulatory Orders Medication Instructions Recorded Confirmed Promethazine [Phenergan] 25 - 50 mg PO Q6H PRN #10 tab 10/08/17 No122/Iron/Folic Acid 1 each PO DAILY #30 tablet 11/05/17 [ Multi Tablet] Labetalol [Trandate] 200 mg PO TID 11/23/19 11/23/19 Venlafaxine ER [Effexor ER] 150 mg PO DAILY 11/23/19 11/23/19 - PHYSICAL EXAM AT DISCHARGE General Appearance: positive: Alert, Mild distress Respiratory: positive: No respiratory distress, Breath sounds nml Cardiovascular: positive: Regular rate & rhythm (3/6 systolic murmur along upper LSB) Abdomen: positive: Non-tender, No distention (Gravid, firm contractions to palpation) Skin: positive: No rash, Warm, Dry - LABS Result Diagrams: 11/23/19 21:49 11/23/19 21:49
[2019-11-23] MEDS ORDERED: CETIRIZINE 10 MG TABLET PO SCH (23:00)
--- NOTE | 2019-11-23 23:04 | Discharge Plan ---
Discharge Plan Problem Reviewed?: Yes Disposition: 02 Transfer Acute Care Hosp Condition: Good Diet: Regular Activity Restrictions: No Restrictions Shower Restrictions: No Driving Restrictions: No No Smoking: If you smoke, Please STOP! Call for help. Follow-up with: ELIE MOLINA DO [Primary Care Provider] -
[2019-11-23 23:16] VITALS: BP 131/79
[2019-11-24] MEDS ORDERED: CETIRIZINE 10 MG TABLET PO SCH (21:57)
== END 2019-11-23 23:38 | disposition short-term general hospital (02) ==
LOC: WFO 21:28 → FBP 21:29 → WFO 23:38
PROVIDERS: ATTEND Obstetrics & Gynecology
DX: O60.03 Preterm labor without delivery, third trimester (principal); Z3A.35 35 weeks gestation of pregnancy; O11.3 Pre-existing hypertension with pre-eclampsia, third trimester; O99.343 Other mental disorders complicating pregnancy, third trimester; F41.9 Anxiety disorder, unspecified; F32.9 Major depressive disorder, single episode, unspecified; F41.0 Panic disorder [episodic paroxysmal anxiety]; F90.9 Attention-deficit hyperactivity disorder, unspecified type; O99.213 Obesity complicating pregnancy, third trimester; E66.9 Obesity, unspecified; O99.013 Anemia complicating pregnancy, third trimester; Z79.899 Other long term (current) drug therapy; Z86.79 Personal history of other diseases of the circulatory system
CPT/HCPCS: 80053; 81003; 82570; 84156; 85027; 96361; 96374; 99214; A9270

== ENCOUNTER 2019-11-23 23:41 | Outpatient (CLI) | payer OTHER | END 2019-11-23 23:42 | disposition short-term general hospital (02) | LOC: EMS 23:41 | PROVIDERS: ATTEND Surgery | DX: O60.03 Preterm labor without delivery, third trimester (principal) | CPT/HCPCS: A0425; A0428 ==

== ENCOUNTER 2020-06-29 14:08 | Emergency (ER) | payer OTHER ==
[2020-06-29 14:21] VITALS: BP 148/102
== END 2020-06-29 14:25 | disposition left against medical advice (07) ==
LOC: ED 14:08
DX: Z53.21 Procedure and treatment not carried out due to patient leaving prior to being seen by health care provider (principal)
CPT/HCPCS: 80053; 83690; 85025

== ENCOUNTER 2020-11-15 19:16 | Outpatient (CLI) | payer OTHER | END 2020-11-15 19:17 | disposition short-term general hospital (02) | LOC: EMS 19:16 | DX: S09.93XA Unspecified injury of face, initial encounter (principal); W20.8XXA Other cause of strike by thrown, projected or falling object, initial encounter; Y93.89 Activity, other specified | CPT/HCPCS: A0425; A0427 ==

== ENCOUNTER 2021-09-23 08:00 | Outpatient (CLI) | payer OTHER | END 2021-09-23 08:01 | disposition home or self-care (01) | LOC: LAB.N 08:00 | PROVIDERS: ATTEND Nurse Practitioner | DX: J32.9 Chronic sinusitis, unspecified (principal); Z20.822 Contact with and (suspected) exposure to COVID-19 ==

== ENCOUNTER 2022-02-13 09:55 | Outpatient (CLI) | payer OTHER ==
[2022-02-13 10:14] VITALS: BP 141/88
[2022-02-13 10:51] LABS: RUPTURE OF MEMBRANES PLUS NEGATIVE (NEGATIVE)
[2022-02-13 11:06] LABS: BILIRUBIN,URINE NEGATIVE (NEGATIVE); GLUCOSE, URINE (UA) NEGATIVE (NEGATIVE); KETONES,URINE (UA) >=80 mg/dL (NEGATIVE); LEUKOCYTE ESTERASE, URINE NEGATIVE (NEGATIVE); NITRITE,URINE NEGATIVE (NEGATIVE); OCCULT BLOOD,URINE NEGATIVE (NEGATIVE); PH,URINE 6.5 PH (5.0-7.5); PROTEIN,URINE NEGATIVE (NEGATIVE); UROBILINOGEN,URINE 0.2 (NORMAL) E.U./dL (NORMAL)
[2022-02-13 11:18] LABS: CLARITY,URINE CLEAR (CLEAR)
[2022-02-13 11:20] LABS: BACTERIA,URINE Rare /HPF (None Seen); RBC,URINE 0-5 /HPF (0-5); SQUAMOUS EPITHELIAL CELL,UR FEW Squamous (<= Few); WBC,URINE 0-3 /HPF (0-5)
[2022-02-13 13:02] LABS: BACTERIAL VAGINOSIS DNA NEGATIVE (NEGATIVE); CANDIDA GLABRATA DNA NEGATIVE (NEGATIVE); CANDIDA GROUP DNA POSITIVE (NEGATIVE); CANDIDA KRUSEI DNA NEGATIVE (NEGATIVE); TRICHOMONAS VAGINALIS DNA NEGATIVE (NEGATIVE)
--- NOTE | 2022-02-13 13:03 | PROVIDER PROGRESS NOTE ---
- HPI Chief Complaint: Leakage of vaginal fluid Current : Current EDU 04/06/22 Gestation 32 Weeks and 4 Days 8 Para 5 Vital Signs Temperature 99.0 F 02/13/22 10:11 Heart Rate 90 02/13/22 10:11 Respiratory Rate 22 02/13/22 10:11 Blood Pressure 141/88 H 02/13/22 10:11 Temperature 99.0 F 02/13/22 10:11 Heart Rate 90 02/13/22 10:11 Respiratory Rate 22 02/13/22 10:11 Blood Pressure 141/88 H 02/13/22 10:11 O2 Saturation - Procedures OB Procedure Performed: NST NST Procedure: NST Procedure Start Date 02/13/22 Start Time 10:10 Stop Time 10:50 Vibroacoustic Stimulation Used No Patient States Movement Yes Service Date of procedure: 02/13/22 (Read 02/13/22) - Plan Plan: Patient is a 37-year-old G8, P5 at 32 weeks 4 days gestation presenting to triage for leaking fluid. She says she felt a trickle of fluid that started last night, continued throughout the evening. She feels good movement. No vaginal bleeding. No contractions. She denies headache, right upper quadrant pain, changes in vision. She does have a history of multiple deliveries and preeclampsia with severe features last .. 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 Cardiovascular: Regular rate and rhythm. Respiratory: no respiratory distress. Abdomen: nondistended, nontender, no guarding. Psych: affect and mood appropriate, normal interaction, good eye contact. SSE: Negative pooling, negative Valsalva, negative nitrazine, negative ferning, moderate mount of thick white discharge. FHT: 140 bpm baseline, moderate variability, accelerations present, no decelerations. [place]: Irregular Laboratory Last Values Urine Color DARK YELLOW 02/13/22 10:55 Urine Clarity CLEAR (CLEAR) 02/13/22 10:55 Urine pH 6.5 PH (5.0-7.5) 02/13/22 10:55 Ur Specific [place] 1.010 (1.002-1.030) 02/13/22 10:55 Urine Protein NEGATIVE mg/dL (NEGATIVE) 02/13/22 10:55 Urine Glucose (UA) NEGATIVE mg/dL (NEGATIVE) 02/13/22 10:55 Urine Ketones >=80 mg/dL (NEGATIVE) H 02/13/22 10:55 Urine Occult Blood NEGATIVE (NEGATIVE) 02/13/22 10:55 Urine Nitrite NEGATIVE (NEGATIVE) 02/13/22 10:55 Urine Bilirubin NEGATIVE (NEGATIVE) 02/13/22 10:55 Urine Urobilinogen 0.2 (NORMAL) E.U./dL (NORMAL) 02/13/22 10:55 Ur Leukocyte Esterase NEGATIVE (NEGATIVE) 02/13/22 10:55 Urine RBC 0-5 /HPF (0-5) 02/13/22 10:55 Urine WBC 0-3 /HPF (0-5) 02/13/22 10:55 Ur Squamous Epith Cells FEW Squamous (<= Few) 02/13/22 10:55 Urine Bacteria Rare /HPF (None Seen) 02/13/22 10:55 Membranes Rupture NEGATIVE (NEGATIVE) 02/13/22 10:16 C. glabrata (PCR) NEGATIVE (NEGATIVE) 02/13/22 10:40 C. krusei (PCR) NEGATIVE (NEGATIVE) 02/13/22 10:40 Savaan species DNA POSITIVE (NEGATIVE) A 02/13/22 10:40 Chlam trachomat DNA PCR NEGATIVE (NEGATIVE) 02/13/22 10:40 N.gonorrhoeae DNA (PCR) NEGATIVE (NEGATIVE) 02/13/22 10:40 T. vaginalis (PCR) NEGATIVE (NEGATIVE) 02/13/22 10:40 Bact Vaginosis (PCR) NEGATIVE (NEGATIVE) 02/13/22 10:40 Assessment and plan 37-year-old G8, P5 at 32 weeks 4 days gestation with leaking fluid 1. Leaking fluid: Likely yeast vaginitis. Offered patient Diflucan versus Monistat. Patient will try [id number] Monistat to start with. Should follow-up with OB provider. Sterile speculum exam was negative x4. 2. History of labor -High risk for recurrent labor. Patient gets care in [place], and will have follow-up appointment tomorrow. 3. 32 weeks gestation
[2022-02-13 14:44] LABS: CHLAMYDIA TRACHOMATIS DNA NEGATIVE (NEGATIVE); NEISSERIA GONORRHOEAE DNA NEGATIVE (NEGATIVE)
== END 2022-02-13 12:45 | disposition home or self-care (01) ==
LOC: WFO 09:55 → FBP 09:57 → WFO 12:45
PROVIDERS: ATTEND Obstetrics & Gynecology
DX: O99.891 Other specified diseases and conditions complicating pregnancy (principal); N89.8 Other specified noninflammatory disorders of vagina; Z87.51 Personal history of pre-term labor; Z3A.32 32 weeks gestation of pregnancy; Z87.59 Personal history of other complications of pregnancy, childbirth and the puerperium
CPT/HCPCS: 59025; 81001; 81514; 84112; 87210; 87491; 87591; 87661; 87797; 99213

== ENCOUNTER 2022-03-01 12:52 | Outpatient (CLI) | payer OTHER | END 2022-03-01 12:53 | disposition critical access hospital (66) | LOC: EMS 12:52 | DX: O99.893 Other specified diseases and conditions complicating puerperium (principal); R10.31 Right lower quadrant pain | CPT/HCPCS: A0425; A0429 ==

== ENCOUNTER 2022-03-01 13:20 | Day surgery (SDC) | payer OTHER ==
--- NOTE | 2022-03-01 13:24 | ED Physician Documentation ---
PD HPI ABD PAIN - Stated complaint Stated Complaint: ABD PX - History obtained from History obtained from: Patient, EMS - History of Present Illness Timing - onset: How many hours ago (1), Today Timing - duration: Hours (1) Timing - details: Abrupt onset, Still present Quality: Sharp, Pain Location: RLQ Radiation: Right flank. No: Chest, , Left flank Improved by: Laying still Worsened by: Moving. No: Breathing Associated symptoms: Nausea, Vaginal bleeding (decreasing bleeding 4 days post vaginal delivery 34 wk gestation with pre-eclampsia. Home the next day.). No: Fever, Vomiting, Diarrhea Similar symptoms before: Has not had sx before (no prior abd pain similar.) Recently seen: Admitted (vaginal delivery baby.) Review of Systems Constitutional: denies: Fever, Chills Nose: denies: Rhinorrhea / runny nose, Congestion Throat: denies: Sore throat Respiratory: denies: Cough GI: reports: Abdominal Pain (mild cramping since delivery but abrupt sharp pain just this morning.), Nausea. denies: Vomiting, Diarrhea : reports: Vaginal bleeding (mild and decreasing since delivery 4 days ago). denies: Dysuria, Frequency Musculoskeletal: denies: Back pain Neurologic: denies: Generalized weakness, Near syncope PD PAST MEDICAL HISTORY - Past Medical History Cardiovascular: None Respiratory: None Endocrine/Autoimmune: None GI: GERD Psych: None - Past Surgical History Past Surgical History: Yes General: Cholecystectomy, Appendectomy HEENT: Tonsil/Adenoidectomy Derm: Other - Present Medications Home Medications: Ambulatory Orders Medication Instructions Recorded Confirmed Promethazine [Phenergan] 25 - 50 mg PO Q6H PRN #10 tab 10/08/17 03/01/22 No122/Iron/Folic Acid 1 each PO DAILY #30 tablet 11/05/17 [ Multi Tablet] Labetalol [Trandate] 200 mg PO BID 11/23/19 03/01/22 Venlafaxine ER [Effexor ER] 75 mg PO DAILY 11/23/19 03/01/22 Cetirizine HCl [Zyrtec] 10 mg ORAL DAILY 03/01/22 03/01/22 Fluoxetine HCl [Prozac] 20 mg PO DAILY 03/01/22 03/01/22 HYDROcod/ACETAM 5/325 [[place] 5/325] 1 tablet PO Q6H PRN 03/01/22 03/01/22 - Allergies Allergies/Adverse Reactions: Allergies Allergy/AdvReac Type Severity Reaction Status Date / Time Penicillins Allergy Severe anaphalaxis Verified 03/01/22 13:32 cephalexin monohydrate * Allergy Mild Rash Verified 03/01/22 13:32 [From Keflex] latex Allergy Mild Rash Verified 03/01/22 13:32 levofloxacin [From Levaquin] Allergy Mild Rash Verified 03/01/22 13:32 ondansetron HCl * Allergy Mild Rash Verified 03/01/22 13:32 [From Zofran (as hydrochloride)] morphine AdvReac Intermediate Anxiety Verified 03/01/22 13:32 oxycodone HCl * AdvReac Mild nausea/vomi Verified 03/01/22 13:32 [From Percocet] ting prochlorperazine AdvReac Unknown Verified 03/01/22 14:10 [From Compazine] - Social History Does the pt smoke?: No Smoking Status: Never smoker Does the pt drink ETOH?: No Does the pt have substance abuse?: No - Immunizations Immunizations are current?: Yes - POLST Patient has POLST: No PD ED PE NORMAL - Vitals Vital signs reviewed: Yes - General General: Alert and oriented X 3, Well developed/nourished, Other - Neck Neck: Supple, no meningeal sign, No adenopathy - Cardiac Cardiac: RRR, No murmur - Respiratory Respiratory: Clear bilaterally - Abdomen Abdomen: Normal bowel sounds, Soft, No organomegaly, Other (tender RLQ without percusson tenderness nor guarding. ) - Female Female : Deferred (will get PEDIATRIC PHYSICAL THERAPIST consult) - Back Back: Other (some right CVA tender to percussion. ) - Derm Derm: Normal color, Warm and dry - Extremities Extremities: No tenderness to palpate, No edema, No calf tenderness / cord - Neuro Neuro: Alert and oriented X 3, No motor deficit, Normal speech Results - Vitals Vitals: Vital Signs - 24 hr 03/01/22 03/01/22 03/01/22 13:33 13:40 14:10 Temperature 37.1 C Heart Rate 85 86 80 Respiratory 16 24 14 Rate Blood Pressure 140/82 H 132/71 H 147/77 H O2 Saturation 97 95 96 09/03/01/22 03/01/22 14:58 15:00 15:41 Temperature Heart Rate 77 80 81 Respiratory 20 15 27 H Rate Blood Pressure 163/99 H 157/84 H 168/106 H O2 Saturation 95 95 93 03/01/22 03/01/22 03/01/22 16:00 16:43 17:10 Temperature Heart Rate 77 84 88 Respiratory 17 22 18 Rate Blood Pressure 159/109 H 154/96 H 145/91 H O2 Saturation 94 97 94 03/01/22 03/01/22 03/01/22 18:00 18:30 20:07 Temperature 37.3 C 36.6 C Heart Rate 86 85 82 Respiratory 21 19 16 Rate Blood Pressure 153/73 H 157/94 H 131/83 H O2 Saturation 97 98 100 03/01/22 03/01/22 03/01/22 20:10 20:15 20:20 Temperature 36.8 C 36.6 C Heart Rate 83 87 84 Respiratory 18 21 12 Rate Blood Pressure 137/94 H 145/89 H 144/98 H O2 Saturation 98 93 97 Oxygen O2 Source Room air - Labs Labs: Laboratory Tests 03/01/22 03/01/22 03/01/22 14:03 14:03 14:55 WBC 4.9 RBC 3.90 L Hgb 11.6 L Hct 34.5 L MCV 88.5 MCH 29.7 MCHC 33.6 RDW 13.6 Plt Count 252 MPV 9.7 Neut # (Auto) 2.9 Lymph # (Auto) 1.5 Heard # (Auto) 0.3 Eos # (Auto) 0.1 Baso # (Auto) 0.0 Absolute Nucleated RBC 0.00 Nucleated RBC % 0.0 Sodium 141 Potassium 3.9 Chloride 108 Carbon Dioxide 23 Anion Gap 10.0 BUN 10 Creatinine 0.5 Estimated GFR (MDRD) 139 Glucose 120 H Calcium 8.6 Total Bilirubin 0.6 AST 676 H ALT 257 H Alkaline Phosphatase 130 H Total Protein 6.2 L Albumin 2.7 L Globulin 3.5 Albumin/Globulin Ratio 0.8 L Lipase 46 Urine Color YELLOW Urine Clarity HAZY Urine pH 6.5 Ur Specific [place] 1.020 Urine Protein NEGATIVE Urine Glucose (UA) NEGATIVE Urine Ketones NEGATIVE Urine Occult Blood SMALL H Urine Nitrite NEGATIVE Urine Bilirubin NEGATIVE Urine Urobilinogen 0.2 (NORMAL) Ur Leukocyte Esterase NEGATIVE Urine RBC 6-10 H Urine WBC 0-3 Ur Squamous Epith Cells FEW Squamous Urine Bacteria Few Ur Microscopic Review INDICATED Urine Culture Comments NOT INDICATED Nasal Adenovirus (PCR) Nasal B. parapertussis DNA (PCR) Nasal Coronavir 229E PCR Nasal Coronavir HKU1 PCR Nasal Coronavir NL63 PCR Nasal Coronavir OC43 PCR Nasal Enterovir/Rhinovir PCR Nasal Influenza B PCR Nasal Influenza A PCR Nasal Parainfluen 1 PCR Nasal Parainfluen 2 PCR Nasal Parainfluen 3 PCR Nasal Parainfluen 4 PCR Nasal RSV (PCR) Nasal B.pertussis DNA PCR Nasal C.pneumoniae (PCR) Segre Human Metapneumo PCR Nasal M.pneumoniae (PCR) Nasal SARS-CoV-2 (PCR) Blood Type Antibody Screen 03/01/22 03/01/22 18:35 18:56 WBC RBC Hgb Hct MCV MCH MCHC RDW Plt Count MPV Neut # (Auto) Lymph # (Auto) Heard # (Auto) Eos # (Auto) Baso # (Auto) Absolute Nucleated RBC Nucleated RBC % Sodium Potassium Chloride Carbon Dioxide Anion Gap BUN Creatinine Estimated GFR (MDRD) Glucose Calcium Total Bilirubin AST ALT Alkaline Phosphatase Total Protein Albumin Globulin Albumin/Globulin Ratio Lipase Urine Color Urine Clarity Urine pH Ur Specific [place] Urine Protein Urine Glucose (UA) Urine Ketones Urine Occult Blood Urine Nitrite Urine Bilirubin Urine Urobilinogen Ur Leukocyte Esterase Urine RBC Urine WBC Ur Squamous Epith Cells Urine Bacteria Ur Microscopic Review Urine Culture Comments Nasal Adenovirus (PCR) NOT DETECTED Nasal B. parapertussis DNA (PCR) NOT DETECTED Nasal Coronavir 229E PCR NOT DETECTED Nasal Coronavir HKU1 PCR NOT DETECTED Nasal Coronavir NL63 PCR NOT DETECTED Nasal Coronavir OC43 PCR NOT DETECTED Nasal Enterovir/Rhinovir PCR NOT DETECTED Nasal Influenza B PCR NOT DETECTED Nasal Influenza A PCR NOT DETECTED Nasal Parainfluen 1 PCR NOT DETECTED Nasal Parainfluen 2 PCR NOT DETECTED Nasal Parainfluen 3 PCR NOT DETECTED Nasal Parainfluen 4 PCR NOT DETECTED Nasal RSV (PCR) NOT DETECTED Nasal B.pertussis DNA PCR NOT DETECTED Nasal C.pneumoniae (PCR) NOT DETECTED Serge Human Metapneumo PCR NOT DETECTED Nasal M.pneumoniae (PCR) NOT DETECTED Nasal SARS-CoV-2 (PCR) NOT DETECTED Blood Type O POSITIVE Antibody Screen NEGATIVE - Rads (name of study) abd/pelvic CT Radiology: Prelim report reviewed (no kidney stones nor obvious ovarian process. Enlarged uterus even for recent . Consider endometritis. ), See jena galindo PD MEDICAL DECISION MAKING - ED course Complexity details: reviewed results (CT scan was negative for stones, free fluid, ovarian process. The uterus was notably enlarged with some air in the center, finding versus consider endometritis.), re-evaluated patient (Having recurring pain right lower quadrant to lower abdomen and getting repeat doses of medication.), considered differential (4 days apparently at [facility]. Discharged on labetalol. Abrupt right lower quadrant to right flank pain today. Consideration of internal bleeding, kidney stone, kidney infection, ovarian process. Will get CT scan.), d/w patient, d/w workers compensation consultant (PEDIATRIC PHYSICAL THERAPIST due to continued elevated BP with history of pre-eclampsia, and elevated LFTs. Platelets normal. UA without protein. ) Departure - Departure Disposition: ED Transfer to [facility] Clinical Impression: hypertension, Elevated LFTs, Abdominal pain, acute, right lower quadrant, Endometritis Condition: Stable Record reviewed to determine appropriate education?: Yes Discharge Date/Time: 03/01/22 19:17
--- OUTSIDE RECORDS SUMMARY | 2022-03-01 13:27 | EXTERNAL MEDICAL SUMMARY RPT | Continuity of Care Document ---
:1985 Author Organization [facility] Address [address] [place] [address] Phone Allergies and Intolerances date description facility type (no date) Penicillins [facility] (unknown) (no date) cephalexin [facility] (unknown) (no date) latex [facility] (unknown) (no date) levofloxacin [facility] (unknown) (no date) metoclopramide [facility] (unknown) (no date) ondansetron [facility] (unknown) (no date) oxycodone [facility] (unknown) (no date) prochlorperazine [facility] (unknown) (no date) vancomycin [facility] (unknown) Encounters No information. Functional Status No information. Immunizations No information. Medications No information. Problems No information. Procedures date description facility [id number] General Physician [facility] Results/Labs test date author facility value unit interpret ation Result panel 1 (unknown) (no (unknown) (unknown) (no value) (units (unk nown) date) unknown) (unknown) (no (unknown) (unknown) [address] [place] [address] (units (unknown) date) unknown) (unknown) (no (unknown) (unknown) [place], [place] (units ( unknown) date) [address] unknown) (unknown) (no (unknown) (unknown) [facility] (units (unknown) date) unknown) (unknown) (no (unknown) (unknown) MR#: [id number] (units (unknown) date) unknown) (unknown) (no (unknown) (unknown) Signed (units (unkno wn) date) unknown) (unknown) (no (unknown) (unknown) XRay Report (units (un known) date) unknown) (unknown) (no (unknown) (unknown) (no value) (units (unk nown) date) unknown) (unknown) (no (unknown) (unknown) 12/01/21 (units (unkno wn) date) unknown) (unknown) (no (unknown) (unknown) 1. Bibasilar (units (u nknown) date) medial unknown) retrocardiac opacities suggestive of consolidation and (unknown) (no (unknown) (unknown) Approved by: (units (u nknown) date) Jonatan Holly, unknown) Brina on 12/02/2021 at 1:47 (unknown) (no (unknown) (unknown) Bones and chest (units (unknown) date) wall: No unknown) suspicious bony lesions. Overlying soft tissues (unknown) (no (unknown) (unknown) COMPARISON: (units (un known) date) [facility], unknown) CR, XR CHEST 1V, 12/20/2019, 20:21. (unknown) (no (unknown) (unknown) Dictated by: (units (u nknown) date) Jonatan Holly, unknown) Brina on 12/02/2021 at 1:45 (unknown) (no (unknown) (unknown) FINDINGS: (units (unkn own) date) unknown) (unknown) (no (unknown) (unknown) IMPRESSION: (units (un known) date) unknown) (unknown) (no (unknown) (unknown) INDICATIONS: (units (u nknown) date) SOB, COVID unknown) (unknown) (no (unknown) (unknown) Lungs and (units (unkn own) date) pleura: There are unknown) patchy bibasilar opacities with areas of (unknown) (no (unknown) (unknown) Mediastinum: (units (u nknown) date) Mediastinal unknown) contours appear normal. Heart size is normal. (unknown) (no (unknown) (unknown) Surgical changes (units (unknown) date) and devices: unknown) None. (unknown) (no (unknown) (unknown) TECHNIQUE: One (units (unknown) date) view of the chest unknown) was acquired. (unknown) (no (unknown) (unknown) given clinical (units (unknown) date) history. The unknown) differential includes atelectasis. (unknown) (no (unknown) (unknown) medial (units (unkno wn) date) retrocardiac unknown) regions. No pleural effusions or pneumothorax. (unknown) (no (unknown) (unknown) unremarkable. (units ( unknown) date) unknown) (unknown) (no (unknown) (unknown) Accession (units (unkn own) date) Number: unknown) [id number] (unknown) (no (unknown) (unknown) Age/Sex: 36 / F (units (unknown) date) Date of Service: unknown) (unknown) (no (unknown) (unknown) : 1985 (units (unknown) date) Acct:[id number] unknown) (unknown) (no (unknown) (unknown) Loc: ED (units (unkno wn) date) unknown) (unknown) (no (unknown) (unknown) Ordering (units (unkno wn) date) Provider: unknown) Jeffrey Ivey D.O. (unknown) (no (unknown) (unknown) PROCEDURE: XR (units ( unknown) date) CHEST 1V unknown) (unknown) (no (unknown) (unknown) Patient: Rufus (units (unknown) date) Nell Go unknown) D (unknown) (no (unknown) (unknown) Procedure: XR (units ( unknown) date) chest 1V unknown) (unknown) (no (unknown) (unknown) appear (units (unkno wn) date) unknown) (unknown) (no (unknown) (unknown) confluence in (units ( unknown) date) the unknown) (unknown) (no (unknown) (unknown) pneumonia (units (unkn own) date) unknown) Result panel 2 (unknown) (no (unknown) (unknown) (no value) (units (unk nown) date) unknown) (unknown) (no (unknown) (unknown) Radiologist's (units ( unknown) date) Impression: unknown) (unknown) (no (unknown) (unknown) (no value) (units (unk nown) date) unknown) (unknown) (no (unknown) (unknown) Date of Service: (units (unknown) date) 12/01/21 unknown) (unknown) (no (unknown) (unknown) (no value) (units (unk nown) date) unknown) (unknown) (no (unknown) (unknown) <Electronically (units (unknown) date) signed by Jeffrey unknown) Tessy Ivey> (unknown) (no (unknown) (unknown) 12/02/21621 (units ( unknown) date) unknown) (unknown) (no (unknown) (unknown) 1 dose IV PRN PRN (units (unknown) date) (Reason: Nausea And unknown) Vomiting) (unknown) (no (unknown) (unknown) 1 ea Continuous IV (units (unknown) date) Infusion Q20H unknown) (unknown) (no (unknown) (unknown) 1 mg PO DAILY (units ( unknown) date) unknown) (unknown) (no (unknown) (unknown) 1 tab PO Q8H PRN (units (unknown) date) (Reason: pain) Qty: unknown) 7 0RF (unknown) (no (unknown) (unknown) 120 mg SUBCUT (units ( unknown) date) QMONTH unknown) (unknown) (no (unknown) (unknown) [address] [facility] (units (unknown) date) unknown) (unknown) (no (unknown) (unknown) 150 mg PO DAILY (units (unknown) date) unknown) (unknown) (no (unknown) (unknown) 150 mg PO QPM (units ( unknown) date) unknown) (unknown) (no (unknown) (unknown) 2 puff INHALATION (units (unknown) date) Q4-6H PRN (Reason: unknown) shortness of breath or wheezing) Qty: (unknown) (no (unknown) (unknown) 25 mg AR Q6H PRN (units (unknown) date) (Reason: Nausea And unknown) Vomiting) (unknown) (no (unknown) (unknown) 30 mg PO DAILY (units (unknown) date) unknown) (unknown) (no (unknown) (unknown) 36 mg PO DAILY (units (unknown) date) unknown) (unknown) (no (unknown) (unknown) 40 mg PO DAILY (units (unknown) date) unknown) (unknown) (no (unknown) (unknown) 50,000 unit PO (units (unknown) date) QWEEK unknown) (unknown) (no (unknown) (unknown) 60 mg PO DAILY (units (unknown) date) unknown) (unknown) (no (unknown) (unknown) 70 mg PO QAM (units (u nknown) date) unknown) (unknown) (no (unknown) (unknown) Allergies (units (unkn own) date) unknown) (unknown) (no (unknown) (unknown) [place], [place] (units ( unknown) date) [address] unknown) (unknown) (no (unknown) (unknown) Close (units (unkno wn) date) unknown) (unknown) (no (unknown) (unknown) ED Orders (units (unkn own) date) unknown) (unknown) (no (unknown) (unknown) Emergency Report (units (unknown) date) unknown) (unknown) (no (unknown) (unknown) Home Medications (units (unknown) date) unknown) (unknown) (no (unknown) (unknown) [facility] (units (unknown) date) unknown) (unknown) (no (unknown) (unknown) [facility] (units (unknown) date) [address] unknown) [place] [address] (unknown) (no (unknown) (unknown) Label Comments: (units (unknown) date) unknown) (unknown) (no (unknown) (unknown) Launch?Image (units (u nknown) date) unknown) (unknown) (no (unknown) (unknown) Previous Rx's (units ( unknown) date) unknown) (unknown) (no (unknown) (unknown) RUNS 20 HOURS PER (units (unknown) date) DAY unknown) (unknown) (no (unknown) (unknown) Signed (units (unkno wn) date) unknown) (unknown) (no (unknown) (unknown) TAKE 1 CAPSULE BY (units (unknown) date) MOUTH IN THE unknown) MORNING (unknown) (no (unknown) (unknown) Urine Dip (units (unkn own) date) unknown) (unknown) (no (unknown) (unknown) Vital Signs - 8 hr (units (unknown) date) unknown) (unknown) (no (unknown) (unknown) XRay Report (units (un known) date) unknown) (unknown) (no (unknown) (unknown) (no value) (units (unk nown) date) unknown) (unknown) (no (unknown) (unknown) Emgality Pen 120 (units (unknown) date) mg/mL Pen Injector unknown) (unknown) (no (unknown) (unknown) MR#: [id number] (units (unknown) date) unknown) (unknown) (no (unknown) (unknown) Tpn (units (unkno wn) date) unknown) (unknown) (no (unknown) (unknown) Vyvanse 70 mg (units ( unknown) date) capsule unknown) (unknown) (no (unknown) (unknown) albuterol sulfate (units (unknown) date) [ProAir HFA] 90 unknown) mcg/actuation HFA aerosol inhaler (unknown) (no (unknown) (unknown) doxazosin 1 mg (units (unknown) date) tablet unknown) (unknown) (no (unknown) (unknown) ergocalciferol (units (unknown) date) (vitamin D2) 50,000 unknown) unit capsule (unknown) (no (unknown) (unknown) hydrocodone-acetam (units (unknown) date) inophen 5-325 mg unknown) tablet (unknown) (no (unknown) (unknown) lisdexamfetamine (units (unknown) date) 60 mg capsule unknown) (unknown) (no (unknown) (unknown) methylphenidate (units (unknown) date) HCl 36 mg tablet unknown) extended release 24hr (unknown) (no (unknown) (unknown) nifedipine 30 mg (units (unknown) date) tablet extended unknown) release 24hr (unknown) (no (unknown) (unknown) pantoprazole 40 mg (units (unknown) date) tablet,delayed unknown) release (DR/EC) (unknown) (no (unknown) (unknown) promethazine 25 mg (units (unknown) date) suppository unknown) (unknown) (no (unknown) (unknown) promethazine 50 (units (unknown) date) mg/mL Solution unknown) (unknown) (no (unknown) (unknown) sertraline (units (unk nown) date) [Zoloft] 50 mg unknown) Tablet (unknown) (no (unknown) (unknown) venlafaxine 150 mg (units (unknown) date) capsule,extended unknown) release 24hr (unknown) (no (unknown) (unknown) #8.5 grams (units (unk nown) date) unknown) (unknown) (no (unknown) (unknown) 12/02/21 (units (unkno wn) date) unknown) (unknown) (no (unknown) (unknown) Medication (units (unk nown) date) Instructions unknown) Recorded (unknown) (no (unknown) (unknown) Medication (units (unk nown) date) Instructions unknown) Recorded Confirmed (unknown) (no (unknown) (unknown) Pneumonia (units (unkn own) date) unknown) (unknown) (no (unknown) (unknown) (Emgality Pen) (units (unknown) date) unknown) (unknown) (no (unknown) (unknown) (More??) (units (unkno wn) date) unknown) (unknown) (no (unknown) (unknown) (Vyvanse) (units (unkn own) date) unknown) (unknown) (no (unknown) (unknown) - (units (unkno wn) date) unknown) (unknown) (no (unknown) (unknown) 06/27/21 (units (unkno wn) date) unknown) (unknown) (no (unknown) (unknown) 06/29/20 (units (unkno wn) date) unknown) (unknown) (no (unknown) (unknown) 07/06/19 (units (unkno wn) date) unknown) (unknown) (no (unknown) (unknown) 02:13 (units (unkno wn) date) unknown) (unknown) (no (unknown) (unknown) 08/11/19 (units (unkno wn) date) unknown) (unknown) (no (unknown) (unknown) 08/20/21 (units (unkno wn) date) unknown) (unknown) (no (unknown) (unknown) 11/15/20 (units (unkno wn) date) unknown) (unknown) (no (unknown) (unknown) 11/23/17 (units (unkno wn) date) unknown) (unknown) (no (unknown) (unknown) 11/26/18 (units (unkno wn) date) unknown) (unknown) (no (unknown) (unknown) 12/01/21 (units (unkno wn) date) unknown) (unknown) (no (unknown) (unknown) 12/01/21 23:57 (units (unknown) date) unknown) (unknown) (no (unknown) (unknown) 12/20/19 (units (unkno wn) date) unknown) (unknown) (no (unknown) (unknown) 01/03/19 (units (unkno wn) date) unknown) (unknown) (no (unknown) (unknown) 01/14/19 (units (unkno wn) date) unknown) (unknown) (no (unknown) (unknown) 1. Bibasilar (units (u nknown) date) medial retrocardiac unknown) opacities suggestive of consolidation and (unknown) (no (unknown) (unknown) 03/18/21 (units (unkno wn) date) unknown) (unknown) (no (unknown) (unknown) 12 point review of (units (unknown) date) systems is negative unknown) except for those stated above (unknown) (no (unknown) (unknown) 36-year-old female (units (unknown) date) nonsmoker without unknown) significant medical history presents for (unknown) (no (unknown) (unknown) 36-year-old female (units (unknown) date) with known COVID unknown) has worsening respiratory symptoms with (unknown) (no (unknown) (unknown) 8.5 0RF (units (unkno wn) date) unknown) (unknown) (no (unknown) (unknown) ? (units (unkno wn) date) unknown) (unknown) (no (unknown) (unknown) ? (units (unkno wn) date) unknown) (unknown) (no (unknown) (unknown) ADHD (units (unkno wn) date) unknown) (unknown) (no (unknown) (unknown) Abdomen/Pelvis CT (units (unknown) date) (Signed) unknown) (unknown) (no (unknown) (unknown) Accession Number: (units (unknown) date) [id number] ?? unknown) (unknown) (no (unknown) (unknown) Acct:[id number] (units (unknown) date) unknown) (unknown) (no (unknown) (unknown) Age/Sex: 36 / F (units (unknown) date) unknown) (unknown) (no (unknown) (unknown) Age/Sex: 36 / F (units (unknown) date) unknown) (unknown) (no (unknown) (unknown) Allergy/Adv: (units (u nknown) date) cephalexin, latex, unknown) levofloxacin, ondansetron, oxycodone, (unknown) (no (unknown) (unknown) Allergy/AdvReac (units (unknown) date) Type Severity unknown) Reaction Status Date / Time (unknown) (no (unknown) (unknown) Approved by: (units (u nknown) date) Jonatan Holly, unknownTisha Gonsalves on 12/02/2021 at 1:47? (unknown) (no (unknown) (unknown) BACK: Nontender (units (unknown) date) without deformity unknown) or crepitance. No flank tenderness. (unknown) (no (unknown) (unknown) Bedside Urine (units ( unknown) date) Bilirubin - unknown) Negative (unknown) (no (unknown) (unknown) Bedside Urine (units ( unknown) date) Glucose Negative unknown) (unknown) (no (unknown) (unknown) Bedside Urine (units ( unknown) date) Ketone - Negative unknown) (unknown) (no (unknown) (unknown) Bedside Urine (units ( unknown) date) Leukocytes - unknown) Negative (unknown) (no (unknown) (unknown) Bedside Urine (units ( unknown) date) Nitrite - Negative unknown) (unknown) (no (unknown) (unknown) Bedside Urine (units ( unknown) date) Occult Blood - unknown) Negative (unknown) (no (unknown) (unknown) Bedside Urine (units ( unknown) date) Protein - Negative unknown) (unknown) (no (unknown) (unknown) Bedside Urine (units ( unknown) date) Urobilinogen - unknown) Negative (unknown) (no (unknown) (unknown) Bedside Urine pH (units (unknown) date) 6.0 unknown) (unknown) (no (unknown) (unknown) Blood Pressure (units (unknown) date) 122/75 12/01/21 unknown) 20:32 (unknown) (no (unknown) (unknown) Blood Pressure (units (unknown) date) 121/69 unknown) (unknown) (no (unknown) (unknown) Bones and chest (units (unknown) date) wall:? No unknown) suspicious bony lesions.? Overlying soft tissues (unknown) (no (unknown) (unknown) Brown (units (unkno wn) date) Nell Go unknown) D??36??F?? 5 (unknown) (no (unknown) (unknown) CARDIOVASCULAR: (units (unknown) date) Denies chest pain, unknown) palpitations, orthopnea, edema, (unknown) (no (unknown) (unknown) CARDIOVASCULAR: (units (unknown) date) Regular rate and unknown) rhythm without murmurs, gallops, or rubs. (unknown) (no (unknown) (unknown) COMPARISON:? (units (u nknown) date) [facility], unknown) CR, XR CHEST 1V, 12/20/2019, 20:21. (unknown) (no (unknown) (unknown) Starr Zapata (units (unknown) date) unknown) (unknown) (no (unknown) (unknown) Cervical Spine CT (units (unknown) date) (Signed) unknown) (unknown) (no (unknown) (unknown) Chest X-Ray (units (un known) date) (Signed) unknown) (unknown) (no (unknown) (unknown) Chest [XR chest (units (unknown) date) 1V] Stat unknown) (unknown) (no (unknown) (unknown) Chest x-ray: (units (u nknown) date) unknown) (unknown) (no (unknown) (unknown) Chief Complaint: (units (unknown) date) Upper Respiratory unknown) Symptoms (unknown) (no (unknown) (unknown) Leslie Person (units (u nknown) date) unknown) (unknown) (no (unknown) (unknown) Clinical (units (unkno wn) date) Impression: unknown) (unknown) (no (unknown) (unknown) Course (units (unkno wn) date) unknown) (unknown) (no (unknown) (unknown) : 1985 (units (unknown) date) Acct:[id number] unknown) (unknown) (no (unknown) (unknown) : 1985 (units (unknown) date) unknown) (unknown) (no (unknown) (unknown) DVT (deep venous (units (unknown) date) thrombosis) unknown) (unknown) (no (unknown) (unknown) Date of Service: (units (unknown) date) 12/01/21 unknown) (unknown) (no (unknown) (unknown) Departure (units (unkn own) date) unknown) (unknown) (no (unknown) (unknown) Depression (units (unk nown) date) unknown) (unknown) (no (unknown) (unknown) Dictated by: (units (u nknown) date) Jonatan Holly, unknown) M.D. on 12/02/2021 at 1:45 ? ? (unknown) (no (unknown) (unknown) Discharge Plan (units (unknown) date) unknown) (unknown) (no (unknown) (unknown) ENT: Nose without (units (unknown) date) bleeding, purulent unknown) drainage. Throat without erythema, (unknown) (no (unknown) (unknown) ER Physician: (units ( unknown) date) Jeffrey Ivey D.O. unknown) (unknown) (no (unknown) (unknown) EXTREMITIES: No (units (unknown) date) edema or joint unknown) tenderness. (unknown) (no (unknown) (unknown) EYES: Pupils equal (units (unknown) date) round and reactive. unknown) Extraocular motions intact. No scleral (unknown) (no (unknown) (unknown) Esterase (units (unkno wn) date) unknown) (unknown) (no (unknown) (unknown) Exam (units (unkno wn) date) unknown) (unknown) (no (unknown) (unknown) Exam Narrative: (units (unknown) date) unknown) (unknown) (no (unknown) (unknown) FINDINGS:? (units (unk nown) date) unknown) (unknown) (no (unknown) (unknown) Face CT (Signed) (units (unknown) date) unknown) (unknown) (no (unknown) (unknown) Ultrasound (units (unknown) date) (Signed) unknown) (unknown) (no (unknown) (unknown) GASTROINTESTINAL: (units (unknown) date) Abdomen soft, unknown) non-tender, nondistended. (unknown) (no (unknown) (unknown) GASTROINTESTINAL: (units (unknown) date) Denies nausea, unknown) vomiting, abdominal pain, diarrhea, (unknown) (no (unknown) (unknown) GENERAL see HPI (units (unknown) date) unknown) (unknown) (no (unknown) (unknown) GENERAL: [36] year (units (unknown) date) old patient appears unknown) stated age. Well-developed patient, in (unknown) (no (unknown) (unknown) : Denies (units (unk nown) date) dysuria, frequency, unknown) incontinence, hematuria, urinary retention. (unknown) (no (unknown) (unknown) General (units (unkno wn) date) unknown) (unknown) (no (unknown) (unknown) HEAD: Atraumatic. (units (unknown) date) Normocephalic. unknown) (unknown) (no (unknown) (unknown) HEENT see HPI (units ( unknown) date) unknown) (unknown) (no (unknown) (unknown) HPI - URI/Sore (units (unknown) date) Throat unknown) (unknown) (no (unknown) (unknown) HPI Narrative: (units (unknown) date) unknown) (unknown) (no (unknown) (unknown) Hand X-Ray (units (unk nown) date) (Signed) unknown) (unknown) (no (unknown) (unknown) Escobar Kruse (units (unknown) date) unknown) (unknown) (no (unknown) (unknown) Head CT (Signed) (units (unknown) date) unknown) (unknown) (no (unknown) (unknown) History of Present (units (unknown) date) Illness unknown) (unknown) (no (unknown) (unknown) History of (units (unk nown) date) appendectomy unknown) (unknown) (no (unknown) (unknown) Hyperemesis (units (un known) date) affecting unknown) , antepartum (unknown) (no (unknown) (unknown) IMPRESSION:? (units (u nknown) date) unknown) (unknown) (no (unknown) (unknown) INDICATIONS:? SOB, (units (unknown) date) COVID unknown) (unknown) (no (unknown) (unknown) Imaging Data (units (u nknown) date) unknown) (unknown) (no (unknown) (unknown) Initial Vital (units ( unknown) date) Signs unknown) (unknown) (no (unknown) (unknown) Initial Vital (units ( unknown) date) Signs: unknown) (unknown) (no (unknown) (unknown) Kidney stone (units (u nknown) date) unknown) (unknown) (no (unknown) (unknown) Obey,Serafin (units ( unknown) date) unknown) (unknown) (no (unknown) (unknown) Kiviat,Velia (units (un known) date) unknown) (unknown) (no (unknown) (unknown) Lab Data (units (unkno wn) date) unknown) (unknown) (no (unknown) (unknown) Labs: (units (unkno wn) date) unknown) (unknown) (no (unknown) (unknown) Loc: ED (units (unkno wn) date) unknown) (unknown) (no (unknown) (unknown) Lumbar Spine MRI (units (unknown) date) (Signed) unknown) (unknown) (no (unknown) (unknown) Lungs and pleura:? (units (unknown) date) There are patchy unknown) bibasilar opacities with areas of confluence (unknown) (no (unknown) (unknown) MDM - URI/Sore (units (unknown) date) Throat unknown) (unknown) (no (unknown) (unknown) MDM Narrative (units ( unknown) date) unknown) (unknown) (no (unknown) (unknown) MR#: [id number] (units (unknown) date) unknown) (unknown) (no (unknown) (unknown) MUSCULOSKELETAL: (units (unknown) date) denies weakness, unknown) joint pain, or bony pain (unknown) (no (unknown) (unknown) Ervin Schneider (units (unknown) date) unknown) (unknown) (no (unknown) (unknown) Mediastinum:? (units ( unknown) date) Mediastinal unknown) contours appear normal.? Heart size is normal.? (unknown) (no (unknown) (unknown) Medical History (units (unknown) date) (Reviewed 12/02/21 unknown) @ 06:20 by Jeffrey Ivey DO) (unknown) (no (unknown) (unknown) Medical decision (units (unknown) date) making narrative: unknown) (unknown) (no (unknown) (unknown) Mode of arrival: (units (unknown) date) Ambulatory unknown) (unknown) (no (unknown) (unknown) NECK: [place] (units ( unknown) date) midline. Non tender unknown) (unknown) (no (unknown) (unknown) NEURO: AOx3. (units (u nknown) date) unknown) (unknown) (no (unknown) (unknown) NEUROLOGIC: Denies (units (unknown) date) weakness, headache, unknown) numbness, change in speech, confusion, (unknown) (no (unknown) (unknown) Narrative (units (unkn own) date) unknown) (unknown) (no (unknown) (unknown) Narrative: (units (unk nown) date) unknown) (unknown) (no (unknown) (unknown) No Action (units (unkn own) date) unknown) (unknown) (no (unknown) (unknown) Ordered: (units (unkno wn) date) unknown) (unknown) (no (unknown) (unknown) Ordering Provider: (units (unknown) date) Jeffrey Ivey D.O. unknown) (unknown) (no (unknown) (unknown) Orders (units (unkno wn) date) unknown) (unknown) (no (unknown) (unknown) Oxygen Delivery (units (unknown) date) Method 12/01/21 unknown) 20:32 (unknown) (no (unknown) (unknown) Oxygen Delivery (units (unknown) date) Method Room Air unknown) (unknown) (no (unknown) (unknown) PROCEDURE:? XR (units (unknown) date) CHEST 1V unknown) (unknown) (no (unknown) (unknown) PSYCHIATRIC: No (units (unknown) date) concerning unknown) psychosocial issues. (unknown) (no (unknown) (unknown) Patient (units (unkno wn) date) Disposition: Home unknown) (unknown) (no (unknown) (unknown) Patient History (units (unknown) date) unknown) (unknown) (no (unknown) (unknown) Patient: Rufus (units (unknown) date) Nell Go unknown) (unknown) (no (unknown) (unknown) Patient: Rufus (units (unknown) date) Nell Go unknown) (unknown) (no (unknown) (unknown) Pelvis Ultrasound (units (unknown) date) (Signed) unknown) (unknown) (no (unknown) (unknown) Penicillins (units (un known) date) [PENICILLINS] unknown) Allergy Unknown Verified 08/20/21 12:39 (unknown) (no (unknown) (unknown) Penicillins, (units (u nknown) date) vancomycin, unknown) prochlorperazine, metoclopramide (unknown) (no (unknown) (unknown) Jonatan Holly (units (un known) date) unknown) (unknown) (no (unknown) (unknown) Prescriptions: (units (unknown) date) unknown) (unknown) (no (unknown) (unknown) Procedure: XR (units ( unknown) date) chest 1V unknown) (unknown) (no (unknown) (unknown) Pulse Oximetry 96 (units (unknown) date) 12/01/21 20:32 unknown) (unknown) (no (unknown) (unknown) Pulse Oximetry 97 (units (unknown) date) unknown) (unknown) (no (unknown) (unknown) Pulse Rate 83 (units ( unknown) date) 12/01/21 20:32 unknown) (unknown) (no (unknown) (unknown) Pulse Rate 80 (units ( unknown) date) unknown) (unknown) (no (unknown) (unknown) RESPIRATORY: (units (u nknown) date) ?Faint crackles unknown) bilateral bases (unknown) (no (unknown) (unknown) RESPIRATORY: ?See (units (unknown) date) HPI unknown) (unknown) (no (unknown) (unknown) Related Data (units (u nknown) date) unknown) (unknown) (no (unknown) (unknown) Respiratory Rate (units (unknown) date) 16 12/01/21 20:32 unknown) (unknown) (no (unknown) (unknown) Respiratory Rate (units (unknown) date) 24 unknown) (unknown) (no (unknown) (unknown) Review of Systems (units (unknown) date) unknown) (unknown) (no (unknown) (unknown) Igor Pham (units (unknown) date) unknown) (unknown) (no (unknown) (unknown) SKIN: Denies rash, (units (unknown) date) skin lesions, or unknown) other (unknown) (no (unknown) (unknown) SKIN: No rash or (units (unknown) date) erythema of visible unknown) areas (unknown) (no (unknown) (unknown) Signed By: (units (unk nown) date) unknown) (unknown) (no (unknown) (unknown) Smoking Status: (units (unknown) date) Never smoker unknown) (unknown) (no (unknown) (unknown) Smoking Status: (units (unknown) date) Never smoker unknown) (unknown) (no (unknown) (unknown) Social History (units (unknown) date) (Reviewed 12/02/21 unknown) @ 06:20 by Jeffrey Ivey DO) (unknown) (no (unknown) (unknown) Source: patient (units (unknown) date) unknown) (unknown) (no (unknown) (unknown) Stated Complaint: (units (unknown) date) covid+ 11/29 trouble unknown) breathing (unknown) (no (unknown) (unknown) Substance Use (units ( unknown) date) Type: does not use unknown) (unknown) (no (unknown) (unknown) Surgical History (units (unknown) date) (Reviewed 12/02/21 unknown) @ 06:20 by Jeffrey Ivey DO) (unknown) (no (unknown) (unknown) Surgical changes (units (unknown) date) and devices:? unknown) None.? (unknown) (no (unknown) (unknown) TECHNIQUE:? One (units (unknown) date) view of the chest unknown) was acquired.? (unknown) (no (unknown) (unknown) Telemetry Strips (units (unknown) date) unknown) (unknown) (no (unknown) (unknown) Temperature 97.5 F (units (unknown) date) L 12/01/21 20:32 unknown) (unknown) (no (unknown) (unknown) Time Seen by (units (u nknown) date) Provider: 12/01/21 unknown) 22:40 (unknown) (no (unknown) (unknown) Tpn 1 ea (units (unkno wn) date) continuous IV unknown) infusion Q20H 04/27/18 04/27/18 (unknown) (no (unknown) (unknown) Urine Specific (units (unknown) date) [place] 1.010 unknown) (unknown) (no (unknown) (unknown) Visit Report (units (u nknown) date) Forms: Patient unknown) Portal/API (unknown) (no (unknown) (unknown) Vital Signs (units (un known) date) unknown) (unknown) (no (unknown) (unknown) Vital signs: (units (u nknown) date) unknown) (unknown) (no (unknown) (unknown) Wrist MRI (Signed) (units (unknown) date) unknown) (unknown) (no (unknown) (unknown) Wrist X-Ray (units (un known) date) (Signed) unknown) (unknown) (no (unknown) (unknown) Bladimir Cedillo (units (unkno wn) date) unknown) (unknown) (no (unknown) (unknown) [From Compazine] (units (unknown) date) unknown) (unknown) (no (unknown) (unknown) aerosol inhaler (units (unknown) date) (ProAir HFA) unknown) shortness of breath or wheezing (unknown) (no (unknown) (unknown) albuterol sulfate (units (unknown) date) 90 mcg/actuation 2 unknown) puff inhalation Q4-6H PRN 07/06/19 (unknown) (no (unknown) (unknown) alcohol intake (units (unknown) date) frequency: unknown) holidays/special occasions only (unknown) (no (unknown) (unknown) any diarrhea or (units (unknown) date) constipation as unknown) well as dysuria, frequency or urgency.? Her (unknown) (no (unknown) (unknown) appear (units (unkno wn) date) unknown) (unknown) (no (unknown) (unknown) capsule,extended (units (unknown) date) release 24 hr unknown) (unknown) (no (unknown) (unknown) cephalexin (units (unk nown) date) [CEPHALEXIN] unknown) Allergy Unknown Verified 08/20/21 12:39 (unknown) (no (unknown) (unknown) constipation, (units ( unknown) date) melena. unknown) (unknown) (no (unknown) (unknown) daughter had (units (u nknown) date) relatively similar unknown) symptoms last week and was diagnosed with COVID (unknown) (no (unknown) (unknown) doxazosin 1 mg (units (unknown) date) tablet 1 mg PO unknown) DAILY 01/14/19 01/14/19 (unknown) (no (unknown) (unknown) ergocalciferol (units (unknown) date) (vitamin D2) 1,250 unknown) 50,000 unit PO QWEEK 01/14/19 01/14/19 (unknown) (no (unknown) (unknown) evaluation of (units ( unknown) date) ongoing upper unknown) respiratory symptoms including nasal congestion, (unknown) (no (unknown) (unknown) galcanezumab-gnlm (units (unknown) date) 120 mg/mL 120 mg unknown) SUBCUT QMONTH 11/15/20 11/15/20 (unknown) (no (unknown) (unknown) given clinical (units (unknown) date) history.? The unknown) differential includes atelectasis. (unknown) (no (unknown) (unknown) household members: (units (unknown) date) spouse and children unknown) (unknown) (no (unknown) (unknown) hydrocodone 5 (units ( unknown) date) mg-acetaminophen unknown) 325 1 tab PO Q8H PRN pain #7 tabs 02/17/21 (unknown) (no (unknown) (unknown) icterus. No (units (un known) date) injection or unknown) drainage. (unknown) (no (unknown) (unknown) in the (units (unkno wn) date) unknown) (unknown) (no (unknown) (unknown) infiltrate, (units (un known) date) patient given unknown) antibiotics, return precautions discussed and (unknown) (no (unknown) (unknown) latex [LATEX] (units ( unknown) date) Allergy Unknown unknown) Verified 08/20/21 12:39 (unknown) (no (unknown) (unknown) levofloxacin [From (units (unknown) date) LEVAQUIN] Allergy unknown) Unknown Verified 08/20/21 12:39 (unknown) (no (unknown) (unknown) lisdexamfetamine (units (unknown) date) 60 mg capsule 60 mg unknown) PO DAILY 01/14/19 01/14/19 (unknown) (no (unknown) (unknown) lisdexamfetamine (units (unknown) date) 70 mg capsule 70 mg unknown) PO QAM 03/04/19 11/15/20 (unknown) (no (unknown) (unknown) mcg (50,000 unit) (units (unknown) date) capsule unknown) (unknown) (no (unknown) (unknown) medial (units (unkno wn) date) retrocardiac unknown) regions.? No pleural effusions or pneumothorax.? (unknown) (no (unknown) (unknown) methylphenidate (units (unknown) date) HCl 36 mg 36 mg PO unknown) DAILY 01/14/19 01/14/19 (unknown) (no (unknown) (unknown) metoclopramide (units (unknown) date) [From Reglan] unknown) AdvReac Verified 08/20/21 12:39 (unknown) (no (unknown) (unknown) mg tablet (units (unkn own) date) unknown) (unknown) (no (unknown) (unknown) mild distress. (units (unknown) date) unknown) (unknown) (no (unknown) (unknown) nifedipine 30 mg (units (unknown) date) tablet,extended 30 unknown) mg PO DAILY 04/27/18 04/27/18 (unknown) (no (unknown) (unknown) on , the (units (unknown) date) patient tested on unknown) Thursday and became positive. (unknown) (no (unknown) (unknown) ondansetron (units (un known) date) [ONDANSETRON] unknown) Allergy Unknown Verified 08/20/21 12:39 (unknown) (no (unknown) (unknown) oxycodone [From (units (unknown) date) PERCOCET] Allergy unknown) Unknown Verified 08/20/21 12:39 (unknown) (no (unknown) (unknown) pantoprazole 40 mg (units (unknown) date) tablet,delayed 40 unknown) mg PO DAILY 01/14/19 (unknown) (no (unknown) (unknown) pneumonia (units (unkn own) date) unknown) (unknown) (no (unknown) (unknown) prochlorperazine (units (unknown) date) AdvReac Severe unknown) Anxiety Verified 08/20/21 12:39 (unknown) (no (unknown) (unknown) promethazine 25 mg (units (unknown) date) rectal 25 mg AR Q6H unknown) PRN Nausea And 04/27/18 11/15/20 (unknown) (no (unknown) (unknown) promethazine 50 (units (unknown) date) mg/mL injection 1 unknown) dose IV PRN PRN Nausea And 04/27/18 04/27/18 (unknown) (no (unknown) (unknown) questions answered (units (unknown) date) to her apparent unknown) satisfaction (unknown) (no (unknown) (unknown) release (units (unkno wn) date) unknown) (unknown) (no (unknown) (unknown) release 24 hr (units ( unknown) date) unknown) (unknown) (no (unknown) (unknown) runny nose and (units (unknown) date) sore throat as well unknown) as cough which is now started producing (unknown) (no (unknown) (unknown) seizures, (units (unkn own) date) incoordination. unknown) (unknown) (no (unknown) (unknown) sertraline 50 mg (units (unknown) date) tablet (Zoloft) 150 unknown) mg PO QPM 11/23/17 04/27/18 (unknown) (no (unknown) (unknown) solution Vomiting (units (unknown) date) unknown) (unknown) (no (unknown) (unknown) subcutaneous pen (units (unknown) date) injector unknown) (unknown) (no (unknown) (unknown) subjective fever (units (unknown) date) and sputum unknown) production. Chest x-ray obtained which notes (unknown) (no (unknown) (unknown) suppository (units (un known) date) Vomiting unknown) (unknown) (no (unknown) (unknown) tablet,extended (units (unknown) date) release 24 hr unknown) (unknown) (no (unknown) (unknown) tonsillar (units (unkn own) date) hypertrophy or unknown) exudate. Airway patent. (unknown) (no (unknown) (unknown) unremarkable.? (units (unknown) date) unknown) (unknown) (no (unknown) (unknown) vancomycin Allergy (units (unknown) date) Verified 08/20/21 unknown) 12:39 (unknown) (no (unknown) (unknown) venlafaxine 150 mg (units (unknown) date) 150 mg PO DAILY unknown) 01/14/19 11/15/20 (unknown) (no (unknown) (unknown) yellowish green (units (unknown) date) sputum.? She is unknown) nauseated but denies any vomiting.? She denies Result panel 3 (unknown) (no (unknown) (unknown) (no value) (units (unk nown) date) unknown) (unknown) (no (unknown) (unknown) [address] [place] [address] (units (unknown) date) unknown) (unknown) (no (unknown) (unknown) ALAN Pinedo (units ( unknown) date) [id number] unknown) (unknown) (no (unknown) (unknown) [facility] (units (unknown) date) unknown) (unknown) (no (unknown) (unknown) MR#: [id number] (units (unknown) date) unknown) (unknown) (no (unknown) (unknown) Signed (units (unkno wn) date) unknown) (unknown) (no (unknown) (unknown) XRay Report (units (un known) date) unknown) (unknown) (no (unknown) (unknown) (no value) (units (unk nown) date) unknown) (unknown) (no (unknown) (unknown) 01/14/22 (units (unkno wn) date) unknown) (unknown) (no (unknown) (unknown) Approved by: (units (u nknown) date) Starr Jones unknown) MD Jodi, PhD on 01/14/2022 at 12:29 (unknown) (no (unknown) (unknown) Bones: No (units (unkn own) date) fractures or unknown) dislocations. No suspicious bony lesions. (unknown) (no (unknown) (unknown) COMPARISON: (units (un known) date) None. unknown) (unknown) (no (unknown) (unknown) Dictated by: (units (u nknown) date) Starr Jones unknown) MD Jodi, PhD on 01/14/2022 at 12:29 (unknown) (no (unknown) (unknown) FINDINGS: (units (unkn own) date) unknown) (unknown) (no (unknown) (unknown) IMPRESSION: No (units (unknown) date) fracture. No unknown) osseous lesion. If symptoms and/or clinical (unknown) (no (unknown) (unknown) INDICATIONS: dog (units (unknown) date) bite unknown) (unknown) (no (unknown) (unknown) Soft tissues: No (units (unknown) date) suspicious soft unknown) tissue calcifications or masses. No (unknown) (no (unknown) (unknown) TECHNIQUE: 2 (units (u nknown) date) views of the unknown) forearm were acquired. (unknown) (no (unknown) (unknown) body. No soft (units ( unknown) date) tissue gas. unknown) (unknown) (no (unknown) (unknown) imaging (e.g. (units ( unknown) date) CT, MRI or bone unknown) scan) should be considered. (unknown) (no (unknown) (unknown) pathology (units (unkn own) date) persists, further unknown) assessment with repeat radiographs (7-10 days) or (unknown) (no (unknown) (unknown) Accession (units (unkn own) date) Number: unknown) [id number] (unknown) (no (unknown) (unknown) Age/Sex: 36 / F (units (unknown) date) Date of Service: unknown) (unknown) (no (unknown) (unknown) : 1985 (units (unknown) date) Acct:[id number] unknown) (unknown) (no (unknown) (unknown) Loc: ED (units (unkno wn) date) unknown) (unknown) (no (unknown) (unknown) Ordering (units (unkno wn) date) Provider: unknown) Alison Serrato D.O. (unknown) (no (unknown) (unknown) PROCEDURE: XR (units ( unknown) date) FOREARM RT 2V unknown) (unknown) (no (unknown) (unknown) Patient: Rufus (units (unknown) date) Nell Go unknown) D (unknown) (no (unknown) (unknown) Procedure: XR (units ( unknown) date) forearm RT 2V unknown) (unknown) (no (unknown) (unknown) advanced (units (unkno wn) date) unknown) (unknown) (no (unknown) (unknown) radiodense (units (unk nown) date) foreign unknown) (unknown) (no (unknown) (unknown) suspicion for (units ( unknown) date) unknown) Result panel 4 (unknown) (no (unknown) (unknown) (no value) (units (unk nown) date) unknown) (unknown) (no (unknown) (unknown) My Impression: (units (unknown) date) unknown) (unknown) (no (unknown) (unknown) Radiologist's (units ( unknown) date) Impression: unknown) (unknown) (no (unknown) (unknown) (no value) (units (unk nown) date) unknown) (unknown) (no (unknown) (unknown) Date of Service: (units (unknown) date) 01/14/22 unknown) (unknown) (no (unknown) (unknown) (no value) (units (unk nown) date) unknown) (unknown) (no (unknown) (unknown) 1 dose IV PRN PRN (units (unknown) date) (Reason: Nausea And unknown) Vomiting) (unknown) (no (unknown) (unknown) 1 ea Continuous IV (units (unknown) date) Infusion Q20H unknown) (unknown) (no (unknown) (unknown) 1 mg PO DAILY (units ( unknown) date) unknown) (unknown) (no (unknown) (unknown) 1 tab PO Q8H PRN (units (unknown) date) (Reason: pain) Qty: unknown) 7 0RF (unknown) (no (unknown) (unknown) 120 mg SUBCUT (units ( unknown) date) QMONTH unknown) (unknown) (no (unknown) (unknown) [address] (units (unknown) date) unknown) (unknown) (no (unknown) (unknown) 150 mg PO DAILY (units (unknown) date) unknown) (unknown) (no (unknown) (unknown) 150 mg PO QPM (units ( unknown) date) unknown) (unknown) (no (unknown) (unknown) 2 puff INHALATION (units (unknown) date) Q4-6H PRN (Reason: unknown) shortness of breath or wheezing) Qty: (unknown) (no (unknown) (unknown) 25 mg AR Q6H PRN (units (unknown) date) (Reason: Nausea And unknown) Vomiting) (unknown) (no (unknown) (unknown) 30 mg PO DAILY (units (unknown) date) unknown) (unknown) (no (unknown) (unknown) 36 mg PO DAILY (units (unknown) date) unknown) (unknown) (no (unknown) (unknown) 40 mg PO DAILY (units (unknown) date) unknown) (unknown) (no (unknown) (unknown) 50,000 unit PO (units (unknown) date) QWEEK unknown) (unknown) (no (unknown) (unknown) 60 mg PO DAILY (units (unknown) date) unknown) (unknown) (no (unknown) (unknown) 70 mg PO QAM (units (u nknown) date) unknown) (unknown) (no (unknown) (unknown) Allergies (units (unkn own) date) unknown) (unknown) (no (unknown) (unknown) [place], [place] (units ( unknown) date) [id number] unknown) (unknown) (no (unknown) (unknown) ED Orders (units (unkn own) date) unknown) (unknown) (no (unknown) (unknown) Emergency Report (units (unknown) date) unknown) (unknown) (no (unknown) (unknown) Home Medications (units (unknown) date) unknown) (unknown) (no (unknown) (unknown) [facility] (units (unknown) date) unknown) (unknown) (no (unknown) (unknown) [facility] (units (unknown) date) [address] unknown) ALAN Pinedo [id number] (unknown) (no (unknown) (unknown) Label Comments: (units (unknown) date) unknown) (unknown) (no (unknown) (unknown) Previous Rx's (units ( unknown) date) unknown) (unknown) (no (unknown) (unknown) RUNS 20 HOURS PER (units (unknown) date) DAY unknown) (unknown) (no (unknown) (unknown) Signed (units (unkno wn) date) unknown) (unknown) (no (unknown) (unknown) TAKE 1 CAPSULE BY (units (unknown) date) MOUTH IN THE unknown) MORNING (unknown) (no (unknown) (unknown) Vital Signs - 8 hr (units (unknown) date) unknown) (unknown) (no (unknown) (unknown) XRay Report (units (un known) date) unknown) (unknown) (no (unknown) (unknown) (no value) (units (unk nown) date) unknown) (unknown) (no (unknown) (unknown) Emgality Pen 120 (units (unknown) date) mg/mL Pen Injector unknown) (unknown) (no (unknown) (unknown) MR#: [id number] (units (unknown) date) unknown) (unknown) (no (unknown) (unknown) Tpn (units (unkno wn) date) unknown) (unknown) (no (unknown) (unknown) Vyvanse 70 mg (units ( unknown) date) capsule unknown) (unknown) (no (unknown) (unknown) albuterol sulfate (units (unknown) date) [ProAir HFA] 90 unknown) mcg/actuation HFA aerosol inhaler (unknown) (no (unknown) (unknown) doxazosin 1 mg (units (unknown) date) tablet unknown) (unknown) (no (unknown) (unknown) ergocalciferol (units (unknown) date) (vitamin D2) 50,000 unknown) unit capsule (unknown) (no (unknown) (unknown) hydrocodone-acetam (units (unknown) date) inophen 5-325 mg unknown) tablet (unknown) (no (unknown) (unknown) lisdexamfetamine (units (unknown) date) 60 mg capsule unknown) (unknown) (no (unknown) (unknown) methylphenidate (units (unknown) date) HCl 36 mg tablet unknown) extended release 24hr (unknown) (no (unknown) (unknown) nifedipine 30 mg (units (unknown) date) tablet extended unknown) release 24hr (unknown) (no (unknown) (unknown) pantoprazole 40 mg (units (unknown) date) tablet,delayed unknown) release (DR/EC) (unknown) (no (unknown) (unknown) promethazine 25 mg (units (unknown) date) suppository unknown) (unknown) (no (unknown) (unknown) promethazine 50 (units (unknown) date) mg/mL Solution unknown) (unknown) (no (unknown) (unknown) sertraline (units (unk nown) date) [Zoloft] 50 mg unknown) Tablet (unknown) (no (unknown) (unknown) venlafaxine 150 mg (units (unknown) date) capsule,extended unknown) release 24hr (unknown) (no (unknown) (unknown) #8.5 grams (units (unk nown) date) unknown) (unknown) (no (unknown) (unknown) 01/14/22 (units (unkno wn) date) unknown) (unknown) (no (unknown) (unknown) Medication (units (unk nown) date) Instructions unknown) Recorded (unknown) (no (unknown) (unknown) Medication (units (unk nown) date) Instructions unknown) Recorded Confirmed (unknown) (no (unknown) (unknown) (Emgality Pen) (units (unknown) date) unknown) (unknown) (no (unknown) (unknown) (Vyvanse) (units (unkn own) date) unknown) (unknown) (no (unknown) (unknown) 01/14/22 13:04 (units (unknown) date) unknown) (unknown) (no (unknown) (unknown) 11:00 (units (unkno wn) date) unknown) (unknown) (no (unknown) (unknown) 8.5 0RF (units (unkno wn) date) unknown) (unknown) (no (unknown) (unknown) ? (units (unkno wn) date) unknown) (unknown) (no (unknown) (unknown) ADHD (units (unkno wn) date) unknown) (unknown) (no (unknown) (unknown) Accession Number: (units (unknown) date) [id number] ?? unknown) (unknown) (no (unknown) (unknown) Acct:[id number] (units (unknown) date) unknown) (unknown) (no (unknown) (unknown) Age/Sex: 36 / F (units (unknown) date) unknown) (unknown) (no (unknown) (unknown) Age/Sex: 36 / F (units (unknown) date) unknown) (unknown) (no (unknown) (unknown) Allergy/AdvReac (units (unknown) date) Type Severity unknown) Reaction Status Date / Time (unknown) (no (unknown) (unknown) Approved by: (units (u nknown) date) Starr Jones unknown) MD Jodi, PhD on 01/14/2022 at 12:29 ? (unknown) (no (unknown) (unknown) Blood Pressure (units (unknown) date) 133/82 01/14/22 unknown) 11:00 (unknown) (no (unknown) (unknown) Blood Pressure (units (unknown) date) 133/82 unknown) (unknown) (no (unknown) (unknown) Bones:? No (units (unk nown) date) fractures or unknown) dislocations.? No suspicious bony lesions.? (unknown) (no (unknown) (unknown) COMPARISON:? None. (units (unknown) date) unknown) (unknown) (no (unknown) (unknown) Chief Complaint: (units (unknown) date) Animal Bite unknown) (unknown) (no (unknown) (unknown) Course (units (unkno wn) date) unknown) (unknown) (no (unknown) (unknown) : 1985 (units (unknown) date) Acct:[id number] unknown) (unknown) (no (unknown) (unknown) : 1985 (units (unknown) date) unknown) (unknown) (no (unknown) (unknown) DVT (deep venous (units (unknown) date) thrombosis) unknown) (unknown) (no (unknown) (unknown) Date of Service: (units (unknown) date) 01/14/22 unknown) (unknown) (no (unknown) (unknown) Departure (units (unkn own) date) unknown) (unknown) (no (unknown) (unknown) Depression (units (unk nown) date) unknown) (unknown) (no (unknown) (unknown) Dictated by: (units (u nknown) date) Starr Jones unknown) MD Jodi, PhD on 01/14/2022 at 12:29 ? ? (unknown) (no (unknown) (unknown) Discharge Plan (units (unknown) date) unknown) (unknown) (no (unknown) (unknown) ER Physician: (units ( unknown) date) Denton Acevedo unknown) (unknown) (no (unknown) (unknown) Exam (units (unkno wn) date) unknown) (unknown) (no (unknown) (unknown) Extremity x-ray (units (unknown) date) #1: unknown) (unknown) (no (unknown) (unknown) FINDINGS:? (units (unk nown) date) unknown) (unknown) (no (unknown) (unknown) General (units (unkno wn) date) unknown) (unknown) (no (unknown) (unknown) HPI - Animal Bite (units (unknown) date) unknown) (unknown) (no (unknown) (unknown) History of (units (unk nown) date) appendectomy unknown) (unknown) (no (unknown) (unknown) Hyperemesis (units (un known) date) affecting unknown) , antepartum (unknown) (no (unknown) (unknown) IMPRESSION:? No (units (unknown) date) fracture. No unknown) osseous lesion. If symptoms and/or clinical (unknown) (no (unknown) (unknown) INDICATIONS:? dog (units (unknown) date) bite unknown) (unknown) (no (unknown) (unknown) Imaging Data (units (u nknown) date) unknown) (unknown) (no (unknown) (unknown) Initial Vital (units ( unknown) date) Signs unknown) (unknown) (no (unknown) (unknown) Initial Vital (units ( unknown) date) Signs: unknown) (unknown) (no (unknown) (unknown) Kidney stone (units (u nknown) date) unknown) (unknown) (no (unknown) (unknown) Loc: ED (units (unkno wn) date) unknown) (unknown) (no (unknown) (unknown) MDM - Animal Bite (units (unknown) date) unknown) (unknown) (no (unknown) (unknown) MR#: [id number] (units (unknown) date) unknown) (unknown) (no (unknown) (unknown) Medical History (units (unknown) date) (Reviewed 12/02/21 unknown) @ 06:20 by Jeffrey Ivey DO) (unknown) (no (unknown) (unknown) Mode of arrival: (units (unknown) date) Ambulatory unknown) (unknown) (no (unknown) (unknown) No Action (units (unkn own) date) unknown) (unknown) (no (unknown) (unknown) Normal forearm (units (unknown) date) unknown) (unknown) (no (unknown) (unknown) Ordered: (units (unkno wn) date) unknown) (unknown) (no (unknown) (unknown) Ordering Provider: (units (unknown) date) Alison Serrato D.O. unknown) (unknown) (no (unknown) (unknown) Orders (units (unkno wn) date) unknown) (unknown) (no (unknown) (unknown) Oxygen Delivery (units (unknown) date) Method 01/14/22 unknown) 11:00 (unknown) (no (unknown) (unknown) Oxygen Delivery (units (unknown) date) Method Room Air unknown) (unknown) (no (unknown) (unknown) PROCEDURE:? XR (units (unknown) date) FOREARM RT 2V unknown) (unknown) (no (unknown) (unknown) Patient History (units (unknown) date) unknown) (unknown) (no (unknown) (unknown) Patient: Rufus (units (unknown) date) Nell Go unknown) (unknown) (no (unknown) (unknown) Patient: Rufus (units (unknown) date) Nell Go unknown) (unknown) (no (unknown) (unknown) Penicillins (units (un known) date) [PENICILLINS] unknown) Allergy Unknown Verified 01/14/22 11:00 (unknown) (no (unknown) (unknown) Prescriptions: (units (unknown) date) unknown) (unknown) (no (unknown) (unknown) Procedure: XR (units ( unknown) date) forearm RT 2V unknown) (unknown) (no (unknown) (unknown) Pulse Oximetry 95 (units (unknown) date) 01/14/22 11:00 unknown) (unknown) (no (unknown) (unknown) Pulse Oximetry 95 (units (unknown) date) unknown) (unknown) (no (unknown) (unknown) Pulse Rate 94 H (units (unknown) date) 01/14/22 11:00 unknown) (unknown) (no (unknown) (unknown) Pulse Rate 94 H (units (unknown) date) unknown) (unknown) (no (unknown) (unknown) Mercy Ruggiero DO (units (unknown) date) [Primary Care unknown) Provider] - (unknown) (no (unknown) (unknown) Referrals: (units (unk nown) date) unknown) (unknown) (no (unknown) (unknown) Related Data (units (u nknown) date) unknown) (unknown) (no (unknown) (unknown) Respiratory Rate (units (unknown) date) 15 01/14/22 11:00 unknown) (unknown) (no (unknown) (unknown) Respiratory Rate (units (unknown) date) 15 unknown) (unknown) (no (unknown) (unknown) Signed By: (units (unk nown) date) unknown) (unknown) (no (unknown) (unknown) Smoking Status: (units (unknown) date) Never smoker unknown) (unknown) (no (unknown) (unknown) Smoking Status: (units (unknown) date) Never smoker unknown) (unknown) (no (unknown) (unknown) Social History (units (unknown) date) (Reviewed 12/02/21 unknown) @ 06:20 by Jeffrey Ivey DO) (unknown) (no (unknown) (unknown) Soft tissues:? No (units (unknown) date) suspicious soft unknown) tissue calcifications or masses.? No (unknown) (no (unknown) (unknown) Source: patient (units (unknown) date) unknown) (unknown) (no (unknown) (unknown) Stated Complaint: (units (unknown) date) Dog bite right arm unknown) (unknown) (no (unknown) (unknown) Substance Use (units ( unknown) date) Type: does not use unknown) (unknown) (no (unknown) (unknown) Surgical History (units (unknown) date) (Reviewed 12/02/21 unknown) @ 06:20 by Jeffrey Ivey DO) (unknown) (no (unknown) (unknown) TECHNIQUE:? 2 (units ( unknown) date) views of the unknown) forearm were acquired.? (unknown) (no (unknown) (unknown) Temperature 97.2 F (units (unknown) date) L 01/14/22 11:00 unknown) (unknown) (no (unknown) (unknown) Temperature 97.2 F (units (unknown) date) L unknown) (unknown) (no (unknown) (unknown) Time Seen by (units (u nknown) date) Provider: 01/14/22 unknown) 13:27 (unknown) (no (unknown) (unknown) Tpn 1 ea (units (unkno wn) date) continuous IV unknown) infusion Q20H 04/27/18 04/27/18 (unknown) (no (unknown) (unknown) Vital Signs (units (un known) date) unknown) (unknown) (no (unknown) (unknown) Vital signs: (units (u nknown) date) unknown) (unknown) (no (unknown) (unknown) XR forearm RT 2V (units (unknown) date) Stat unknown) (unknown) (no (unknown) (unknown) [From Compazine] (units (unknown) date) unknown) (unknown) (no (unknown) (unknown) advanced (units (unkno wn) date) unknown) (unknown) (no (unknown) (unknown) aerosol inhaler (units (unknown) date) (ProAir HFA) unknown) shortness of breath or wheezing (unknown) (no (unknown) (unknown) albuterol sulfate (units (unknown) date) 90 mcg/actuation 2 unknown) puff inhalation Q4-6H PRN 07/06/19 (unknown) (no (unknown) (unknown) alcohol intake (units (unknown) date) frequency: unknown) holidays/special occasions only (unknown) (no (unknown) (unknown) body.? No soft (units (unknown) date) tissue gas.? unknown) (unknown) (no (unknown) (unknown) capsule,extended (units (unknown) date) release 24 hr unknown) (unknown) (no (unknown) (unknown) cephalexin (units (unk nown) date) [CEPHALEXIN] unknown) Allergy Unknown Verified 01/14/22 11:00 (unknown) (no (unknown) (unknown) doxazosin 1 mg (units (unknown) date) tablet 1 mg PO unknown) DAILY 01/14/19 01/14/19 (unknown) (no (unknown) (unknown) ergocalciferol (units (unknown) date) (vitamin D2) 1,250 unknown) 50,000 unit PO QWEEK 01/14/19 01/14/19 (unknown) (no (unknown) (unknown) galcanezumab-gnlm (units (unknown) date) 120 mg/mL 120 mg unknown) SUBCUT QMONTH 11/15/20 11/15/20 (unknown) (no (unknown) (unknown) household members: (units (unknown) date) spouse and children unknown) (unknown) (no (unknown) (unknown) hydrocodone 5 (units ( unknown) date) mg-acetaminophen unknown) 325 1 tab PO Q8H PRN pain #7 tabs 02/17/21 (unknown) (no (unknown) (unknown) imaging (e.g. CT, (units (unknown) date) MRI or bone scan) unknown) should be considered. (unknown) (no (unknown) (unknown) latex [LATEX] (units ( unknown) date) Allergy Unknown unknown) Verified 01/14/22 11:00 (unknown) (no (unknown) (unknown) levofloxacin [From (units (unknown) date) LEVAQUIN] Allergy unknown) Unknown Verified 01/14/22 11:00 (unknown) (no (unknown) (unknown) lisdexamfetamine (units (unknown) date) 60 mg capsule 60 mg unknown) PO DAILY 01/14/19 01/14/19 (unknown) (no (unknown) (unknown) lisdexamfetamine (units (unknown) date) 70 mg capsule 70 mg unknown) PO QAM 03/04/19 11/15/20 (unknown) (no (unknown) (unknown) mcg (50,000 unit) (units (unknown) date) capsule unknown) (unknown) (no (unknown) (unknown) methylphenidate (units (unknown) date) HCl 36 mg 36 mg PO unknown) DAILY 01/14/19 01/14/19 (unknown) (no (unknown) (unknown) metoclopramide (units (unknown) date) [From Reglan] unknown) AdvReac Verified 01/14/22 11:00 (unknown) (no (unknown) (unknown) mg tablet (units (unkn own) date) unknown) (unknown) (no (unknown) (unknown) nifedipine 30 mg (units (unknown) date) tablet,extended 30 unknown) mg PO DAILY 04/27/18 04/27/18 (unknown) (no (unknown) (unknown) ondansetron (units (un known) date) [ONDANSETRON] unknown) Allergy Unknown Verified 01/14/22 11:00 (unknown) (no (unknown) (unknown) oxycodone [From (units (unknown) date) PERCOCET] Allergy unknown) Unknown Verified 01/14/22 11:00 (unknown) (no (unknown) (unknown) pantoprazole 40 mg (units (unknown) date) tablet,delayed 40 unknown) mg PO DAILY 01/14/19 (unknown) (no (unknown) (unknown) pathology (units (unkn own) date) persists, further unknown) assessment with repeat radiographs (7-10 days) or (unknown) (no (unknown) (unknown) prochlorperazine (units (unknown) date) AdvReac Severe unknown) Anxiety Verified 01/14/22 11:00 (unknown) (no (unknown) (unknown) promethazine 25 mg (units (unknown) date) rectal 25 mg AR Q6H unknown) PRN Nausea And 04/27/18 11/15/20 (unknown) (no (unknown) (unknown) promethazine 50 (units (unknown) date) mg/mL injection 1 unknown) dose IV PRN PRN Nausea And 04/27/18 04/27/18 (unknown) (no (unknown) (unknown) radiodense foreign (units (unknown) date) unknown) (unknown) (no (unknown) (unknown) release (units (unkno wn) date) unknown) (unknown) (no (unknown) (unknown) release 24 hr (units ( unknown) date) unknown) (unknown) (no (unknown) (unknown) sertraline 50 mg (units (unknown) date) tablet (Zoloft) 150 unknown) mg PO QPM 11/23/17 04/27/18 (unknown) (no (unknown) (unknown) solution Vomiting (units (unknown) date) unknown) (unknown) (no (unknown) (unknown) subcutaneous pen (units (unknown) date) injector unknown) (unknown) (no (unknown) (unknown) suppository (units (un known) date) Vomiting unknown) (unknown) (no (unknown) (unknown) suspicion for (units ( unknown) date) unknown) (unknown) (no (unknown) (unknown) tablet,extended (units (unknown) date) release 24 hr unknown) (unknown) (no (unknown) (unknown) vancomycin Allergy (units (unknown) date) Verified 01/14/22 unknown) 11:00 (unknown) (no (unknown) (unknown) venlafaxine 150 mg (units (unknown) date) 150 mg PO DAILY unknown) 01/14/19 11/15/20 Result panel 5 (unknown) (no (unknown) (unknown) (no value) (units (unk nown) date) unknown) (unknown) (no (unknown) (unknown) My Impression: (units (unknown) date) unknown) (unknown) (no (unknown) (unknown) Radiologist's (units ( unknown) date) Impression: unknown) (unknown) (no (unknown) (unknown) (no value) (units (unk nown) date) unknown) (unknown) (no (unknown) (unknown) *Please continue (units (unknown) date) to take your unknown) regular medications as directed. (unknown) (no (unknown) (unknown) Date of Service: (units (unknown) date) 01/14/22 unknown) (unknown) (no (unknown) (unknown) (no value) (units (unk nown) date) unknown) (unknown) (no (unknown) (unknown) 1 dose IV PRN PRN (units (unknown) date) (Reason: Nausea And unknown) Vomiting) (unknown) (no (unknown) (unknown) 1 ea Continuous IV (units (unknown) date) Infusion Q20H unknown) (unknown) (no (unknown) (unknown) 1 mg PO DAILY (units ( unknown) date) unknown) (unknown) (no (unknown) (unknown) 1 tab PO Q8H PRN (units (unknown) date) (Reason: pain) Qty: unknown) 7 0RF (unknown) (no (unknown) (unknown) 120 mg SUBCUT (units ( unknown) date) QMONTH unknown) (unknown) (no (unknown) (unknown) [address] [place] (units (unknown) date) unknown) (unknown) (no (unknown) (unknown) 150 mg PO DAILY (units (unknown) date) unknown) (unknown) (no (unknown) (unknown) 150 mg PO QPM (units ( unknown) date) unknown) (unknown) (no (unknown) (unknown) 2 puff INHALATION (units (unknown) date) Q4-6H PRN (Reason: unknown) shortness of breath or wheezing) Qty: (unknown) (no (unknown) (unknown) 25 mg AR Q6H PRN (units (unknown) date) (Reason: Nausea And unknown) Vomiting) (unknown) (no (unknown) (unknown) 30 mg PO DAILY (units (unknown) date) unknown) (unknown) (no (unknown) (unknown) 36 mg PO DAILY (units (unknown) date) unknown) (unknown) (no (unknown) (unknown) 40 mg PO DAILY (units (unknown) date) unknown) (unknown) (no (unknown) (unknown) 50,000 unit PO (units (unknown) date) QWEEK unknown) (unknown) (no (unknown) (unknown) 60 mg PO DAILY (units (unknown) date) unknown) (unknown) (no (unknown) (unknown) 70 mg PO QAM (units (u nknown) date) unknown) (unknown) (no (unknown) (unknown) Allergies (units (unkn own) date) unknown) (unknown) (no (unknown) (unknown) [place], [place] (units ( unknown) date) [id number] unknown) (unknown) (no (unknown) (unknown) ED Orders (units (unkn own) date) unknown) (unknown) (no (unknown) (unknown) Emergency Report (units (unknown) date) unknown) (unknown) (no (unknown) (unknown) Home Medications (units (unknown) date) unknown) (unknown) (no (unknown) (unknown) [facility] (units (unknown) date) unknown) (unknown) (no (unknown) (unknown) [facility] (units (unknown) date) [address] unknown) [place] [address] (unknown) (no (unknown) (unknown) Label Comments: (units (unknown) date) unknown) (unknown) (no (unknown) (unknown) Previous Rx's (units ( unknown) date) unknown) (unknown) (no (unknown) (unknown) RUNS 20 HOURS PER (units (unknown) date) DAY unknown) (unknown) (no (unknown) (unknown) Signed (units (unkno wn) date) unknown) (unknown) (no (unknown) (unknown) TAKE 1 CAPSULE BY (units (unknown) date) MOUTH IN THE unknown) MORNING (unknown) (no (unknown) (unknown) Vital Signs - 8 hr (units (unknown) date) unknown) (unknown) (no (unknown) (unknown) XRay Report (units (un known) date) unknown) (unknown) (no (unknown) (unknown) [ ] New medication (units (unknown) date) written as a paper unknown) prescription (unknown) (no (unknown) (unknown) [ ] No new (units (unk nown) date) medications given unknown) (unknown) (no (unknown) (unknown) [ x] New (units (unkno wn) date) medication unknown) prescriptions sent to your pharmacy: [[facility] (unknown) (no (unknown) (unknown) (no value) (units (unk nown) date) unknown) (unknown) (no (unknown) (unknown) Emgality Pen 120 (units (unknown) date) mg/mL Pen Injector unknown) (unknown) (no (unknown) (unknown) MR#: [id number] (units (unknown) date) unknown) (unknown) (no (unknown) (unknown) Tpn (units (unkno wn) date) unknown) (unknown) (no (unknown) (unknown) Vyvanse 70 mg (units ( unknown) date) capsule unknown) (unknown) (no (unknown) (unknown) albuterol sulfate (units (unknown) date) [ProAir HFA] 90 unknown) mcg/actuation HFA aerosol inhaler (unknown) (no (unknown) (unknown) doxazosin 1 mg (units (unknown) date) tablet unknown) (unknown) (no (unknown) (unknown) ergocalciferol (units (unknown) date) (vitamin D2) 50,000 unknown) unit capsule (unknown) (no (unknown) (unknown) hydrocodone-acetam (units (unknown) date) inophen 5-325 mg unknown) tablet (unknown) (no (unknown) (unknown) lisdexamfetamine (units (unknown) date) 60 mg capsule unknown) (unknown) (no (unknown) (unknown) methylphenidate (units (unknown) date) HCl 36 mg tablet unknown) extended release 24hr (unknown) (no (unknown) (unknown) nifedipine 30 mg (units (unknown) date) tablet extended unknown) release 24hr (unknown) (no (unknown) (unknown) pantoprazole 40 mg (units (unknown) date) tablet,delayed unknown) release (DR/EC) (unknown) (no (unknown) (unknown) promethazine 25 mg (units (unknown) date) suppository unknown) (unknown) (no (unknown) (unknown) promethazine 50 (units (unknown) date) mg/mL Solution unknown) (unknown) (no (unknown) (unknown) sertraline (units (unk nown) date) [Zoloft] 50 mg unknown) Tablet (unknown) (no (unknown) (unknown) venlafaxine 150 mg (units (unknown) date) capsule,extended unknown) release 24hr (unknown) (no (unknown) (unknown) #8.5 grams (units (unk nown) date) unknown) (unknown) (no (unknown) (unknown) 01/14/22 (units (unkno wn) date) unknown) (unknown) (no (unknown) (unknown) Dog bite (units (unkno wn) date) unknown) (unknown) (no (unknown) (unknown) Medication (units (unk nown) date) Instructions unknown) Recorded (unknown) (no (unknown) (unknown) Medication (units (unk nown) date) Instructions unknown) Recorded Confirmed (unknown) (no (unknown) (unknown) [place]] (units (un known) date) unknown) (unknown) (no (unknown) (unknown) (Emgality Pen) (units (unknown) date) unknown) (unknown) (no (unknown) (unknown) (Vyvanse) (units (unkn own) date) unknown) (unknown) (no (unknown) (unknown) *If you do not (units (unknown) date) have a primary care unknown) provider please contact the [facility] (unknown) (no (unknown) (unknown) *Please follow up (units (unknown) date) with your primary unknown) care provider in 2-3 days, call for an (unknown) (no (unknown) (unknown) *What to do: (units (u nknown) date) unknown) (unknown) (no (unknown) (unknown) *You have been (units (unknown) date) diagnosed with dog unknown) bite to your right forearm. Your x-ray was (unknown) (no (unknown) (unknown) 01/14/22 13:04 (units (unknown) date) unknown) (unknown) (no (unknown) (unknown) 11:00 (units (unkno wn) date) unknown) (unknown) (no (unknown) (unknown) 36-year-old (units (un known) date) female, currently unknown) , presents to the emergency department (unknown) (no (unknown) (unknown) 8.5 0RF (units (unkno wn) date) unknown) (unknown) (no (unknown) (unknown) ? (units (unkno wn) date) unknown) (unknown) (no (unknown) (unknown) ? Return to ER if (units (unknown) date) you should have any unknown) new, worsening or concerning symptoms, (unknown) (no (unknown) (unknown) ADHD (units (unkno wn) date) unknown) (unknown) (no (unknown) (unknown) Accession Number: (units (unknown) date) [id number] ?? unknown) (unknown) (no (unknown) (unknown) Acct:[id number] (units (unknown) date) unknown) (unknown) (no (unknown) (unknown) Activity (units (unkno wn) date) Restrictions/Additi unknown) onal Instructions: (unknown) (no (unknown) (unknown) Age/Sex: 36 / F (units (unknown) date) unknown) (unknown) (no (unknown) (unknown) Age/Sex: 36 / F (units (unknown) date) unknown) (unknown) (no (unknown) (unknown) Allergy/AdvReac (units (unknown) date) Type Severity unknown) Reaction Status Date / Time (unknown) (no (unknown) (unknown) Approved by: (units (u nknown) date) Starr Jones unknown) MD Jodi, PhD on 01/14/2022 at 12:29 ? (unknown) (no (unknown) (unknown) Blood Pressure (units (unknown) date) 133/82 01/14/22 unknown) 11:00 (unknown) (no (unknown) (unknown) Blood Pressure (units (unknown) date) 133/82 unknown) (unknown) (no (unknown) (unknown) Bones:? No (units (unk nown) date) fractures or unknown) dislocations.? No suspicious bony lesions.? (unknown) (no (unknown) (unknown) COMPARISON:? None. (units (unknown) date) unknown) (unknown) (no (unknown) (unknown) Chief Complaint: (units (unknown) date) Animal Bite unknown) (unknown) (no (unknown) (unknown) Clinical (units (unkno wn) date) Impression: unknown) (unknown) (no (unknown) (unknown) Course (units (unkno wn) date) unknown) (unknown) (no (unknown) (unknown) : 1985 (units (unknown) date) Acct:[id number] unknown) (unknown) (no (unknown) (unknown) : 1985 (units (unknown) date) unknown) (unknown) (no (unknown) (unknown) DVT (deep venous (units (unknown) date) thrombosis) unknown) (unknown) (no (unknown) (unknown) Date of Service: (units (unknown) date) 01/14/22 unknown) (unknown) (no (unknown) (unknown) Departure (units (unkn own) date) unknown) (unknown) (no (unknown) (unknown) Depression (units (unk nown) date) unknown) (unknown) (no (unknown) (unknown) Dictated by: (units (u nknown) date) Starr Jones unknown) MD Jodi, PhD on 01/14/2022 at 12:29 ? ? (unknown) (no (unknown) (unknown) Discharge Plan (units (unknown) date) unknown) (unknown) (no (unknown) (unknown) ER Physician: (units ( unknown) date) Denton Acevedo unknown) (unknown) (no (unknown) (unknown) Exam (units (unkno wn) date) unknown) (unknown) (no (unknown) (unknown) Extremity x-ray (units (unknown) date) #1: unknown) (unknown) (no (unknown) (unknown) FINDINGS:? (units (unk nown) date) unknown) (unknown) (no (unknown) (unknown) General (units (unkno wn) date) unknown) (unknown) (no (unknown) (unknown) HPI - Animal Bite (units (unknown) date) unknown) (unknown) (no (unknown) (unknown) HPI narrative: (units (unknown) date) unknown) (unknown) (no (unknown) (unknown) History of Present (units (unknown) date) Illness unknown) (unknown) (no (unknown) (unknown) History of (units (unk nown) date) appendectomy unknown) (unknown) (no (unknown) (unknown) Hyperemesis (units (un known) date) affecting unknown) , antepartum (unknown) (no (unknown) (unknown) IMPRESSION:? No (units (unknown) date) fracture. No unknown) osseous lesion. If symptoms and/or clinical (unknown) (no (unknown) (unknown) INDICATIONS:? dog (units (unknown) date) bite unknown) (unknown) (no (unknown) (unknown) Imaging Data (units (u nknown) date) unknown) (unknown) (no (unknown) (unknown) Initial Vital (units ( unknown) date) Signs unknown) (unknown) (no (unknown) (unknown) Initial Vital (units ( unknown) date) Signs: unknown) (unknown) (no (unknown) (unknown) Instructions: DI (units (unknown) date) for Dog Bite unknown) (unknown) (no (unknown) (unknown) Kidney stone (units (u nknown) date) unknown) (unknown) (no (unknown) (unknown) Loc: ED (units (unkno wn) date) unknown) (unknown) (no (unknown) (unknown) MDM - Animal Bite (units (unknown) date) unknown) (unknown) (no (unknown) (unknown) MR#: [id number] (units (unknown) date) unknown) (unknown) (no (unknown) (unknown) Medical History (units (unknown) date) (Reviewed 12/02/21 unknown) @ 06:20 by Jeffrey Ivey DO) (unknown) (no (unknown) (unknown) Mode of arrival: (units (unknown) date) Ambulatory unknown) (unknown) (no (unknown) (unknown) No Action (units (unkn own) date) unknown) (unknown) (no (unknown) (unknown) Normal forearm (units (unknown) date) unknown) (unknown) (no (unknown) (unknown) Ordered: (units (unkno wn) date) unknown) (unknown) (no (unknown) (unknown) Ordering Provider: (units (unknown) date) Alison Serrato D.O. unknown) (unknown) (no (unknown) (unknown) Orders (units (unkno wn) date) unknown) (unknown) (no (unknown) (unknown) Oxygen Delivery (units (unknown) date) Method 01/14/22 unknown) 11:00 (unknown) (no (unknown) (unknown) Oxygen Delivery (units (unknown) date) Method Room Air unknown) (unknown) (no (unknown) (unknown) PROCEDURE:? XR (units (unknown) date) FOREARM RT 2V unknown) (unknown) (no (unknown) (unknown) Patient (units (unkno wn) date) Disposition: Home unknown) (unknown) (no (unknown) (unknown) Patient History (units (unknown) date) unknown) (unknown) (no (unknown) (unknown) Patient: Rufus (units (unknown) date) Nell Go unknown) (unknown) (no (unknown) (unknown) Patient: Rufus (units (unknown) date) Nell Go unknown) (unknown) (no (unknown) (unknown) Penicillins (units (un known) date) [PENICILLINS] unknown) Allergy Unknown Verified 01/14/22 11:00 (unknown) (no (unknown) (unknown) Prescriptions: (units (unknown) date) unknown) (unknown) (no (unknown) (unknown) Procedure: XR (units ( unknown) date) forearm RT 2V unknown) (unknown) (no (unknown) (unknown) Pulse Oximetry 95 (units (unknown) date) 01/14/22 11:00 unknown) (unknown) (no (unknown) (unknown) Pulse Oximetry 95 (units (unknown) date) unknown) (unknown) (no (unknown) (unknown) Pulse Rate 94 H (units (unknown) date) 01/14/22 11:00 unknown) (unknown) (no (unknown) (unknown) Pulse Rate 94 H (units (unknown) date) unknown) (unknown) (no (unknown) (unknown) Mercy Ruggiero DO (units (unknown) date) [Primary Care unknown) Provider] - (unknown) (no (unknown) (unknown) Referrals: (units (unk nown) date) unknown) (unknown) (no (unknown) (unknown) Related Data (units (u nknown) date) unknown) (unknown) (no (unknown) (unknown) Resource line at (units (unknown) date) [phone]. They unknown) will ask some questions about your medical (unknown) (no (unknown) (unknown) Respiratory Rate (units (unknown) date) 15 01/14/22 11:00 unknown) (unknown) (no (unknown) (unknown) Respiratory Rate (units (unknown) date) 15 unknown) (unknown) (no (unknown) (unknown) Signed By: (units (unk nown) date) unknown) (unknown) (no (unknown) (unknown) Smoking Status: (units (unknown) date) Never smoker unknown) (unknown) (no (unknown) (unknown) Smoking Status: (units (unknown) date) Never smoker unknown) (unknown) (no (unknown) (unknown) Social History (units (unknown) date) (Reviewed 12/02/21 unknown) @ 06:20 by Jeffrey Ivey DO) (unknown) (no (unknown) (unknown) Soft tissues:? No (units (unknown) date) suspicious soft unknown) tissue calcifications or masses.? No (unknown) (no (unknown) (unknown) Source: patient (units (unknown) date) unknown) (unknown) (no (unknown) (unknown) Stated Complaint: (units (unknown) date) Dog bite right arm unknown) (unknown) (no (unknown) (unknown) Substance Use (units ( unknown) date) Type: does not use unknown) (unknown) (no (unknown) (unknown) Surgical History (units (unknown) date) (Reviewed 12/02/21 unknown) @ 06:20 by Jeffrey Ivey DO) (unknown) (no (unknown) (unknown) TECHNIQUE:? 2 (units ( unknown) date) views of the unknown) forearm were acquired.? (unknown) (no (unknown) (unknown) Temperature 97.2 F (units (unknown) date) L 01/14/22 11:00 unknown) (unknown) (no (unknown) (unknown) Temperature 97.2 F (units (unknown) date) L unknown) (unknown) (no (unknown) (unknown) Time Seen by (units (u nknown) date) Provider: 01/14/22 unknown) 13:27 (unknown) (no (unknown) (unknown) Tpn 1 ea (units (unkno wn) date) continuous IV unknown) infusion Q20H 04/27/18 04/27/18 (unknown) (no (unknown) (unknown) Vital Signs (units (un known) date) unknown) (unknown) (no (unknown) (unknown) Vital signs: (units (u nknown) date) unknown) (unknown) (no (unknown) (unknown) XR forearm RT 2V (units (unknown) date) Stat unknown) (unknown) (no (unknown) (unknown) [From Compazine] (units (unknown) date) unknown) (unknown) (no (unknown) (unknown) advanced (units (unkno wn) date) unknown) (unknown) (no (unknown) (unknown) aerosol inhaler (units (unknown) date) (ProAir HFA) unknown) shortness of breath or wheezing (unknown) (no (unknown) (unknown) albuterol sulfate (units (unknown) date) 90 mcg/actuation 2 unknown) puff inhalation Q4-6H PRN 07/06/19 (unknown) (no (unknown) (unknown) alcohol intake (units (unknown) date) frequency: unknown) holidays/special occasions only (unknown) (no (unknown) (unknown) and placed a (units (u nknown) date) Band-Aid on them. unknown) You have stated that you are up-to-date on your (unknown) (no (unknown) (unknown) appointment. Let (units (unknown) date) them know you were unknown) seen in the Emergency Department and that we (unknown) (no (unknown) (unknown) ask that you be (units (unknown) date) seen in follow up. unknown) We will electronically transmit a record of (unknown) (no (unknown) (unknown) body.? No soft (units (unknown) date) tissue gas.? unknown) (unknown) (no (unknown) (unknown) breathing, fever (units (unknown) date) greater than 101 F, unknown) shaking chills, persistent vomiting to the (unknown) (no (unknown) (unknown) capsule,extended (units (unknown) date) release 24 hr unknown) (unknown) (no (unknown) (unknown) cephalexin (units (unk nown) date) [CEPHALEXIN] unknown) Allergy Unknown Verified 01/14/22 11:00 (unknown) (no (unknown) (unknown) doxazosin 1 mg (units (unknown) date) tablet 1 mg PO unknown) DAILY 01/14/19 01/14/19 (unknown) (no (unknown) (unknown) ergocalciferol (units (unknown) date) (vitamin D2) 1,250 unknown) 50,000 unit PO QWEEK 01/14/19 01/14/19 (unknown) (no (unknown) (unknown) feel free to (units (u nknown) date) return to the unknown) emergency department. (unknown) (no (unknown) (unknown) galcanezumab-gnlm (units (unknown) date) 120 mg/mL 120 mg unknown) SUBCUT QMONTH 11/15/20 11/15/20 (unknown) (no (unknown) (unknown) her last tetanus (units (unknown) date) shot was in 2019. unknown) Patient is here with her . (unknown) (no (unknown) (unknown) history and help (units (unknown) date) get you set up with unknown) a doctor in the community. (unknown) (no (unknown) (unknown) household members: (units (unknown) date) spouse and children unknown) (unknown) (no (unknown) (unknown) hydrocodone 5 (units ( unknown) date) mg-acetaminophen unknown) 325 1 tab PO Q8H PRN pain #7 tabs 02/17/21 (unknown) (no (unknown) (unknown) imaging (e.g. CT, (units (unknown) date) MRI or bone scan) unknown) should be considered. (unknown) (no (unknown) (unknown) immunized home (units (unknown) date) pets. Patient unknown) reports that the sites blood profusely and has (unknown) (no (unknown) (unknown) latex [LATEX] (units ( unknown) date) Allergy Unknown unknown) Verified 01/14/22 11:00 (unknown) (no (unknown) (unknown) levofloxacin [From (units (unknown) date) LEVAQUIN] Allergy unknown) Unknown Verified 01/14/22 11:00 (unknown) (no (unknown) (unknown) lisdexamfetamine (units (unknown) date) 60 mg capsule 60 mg unknown) PO DAILY 01/14/19 01/14/19 (unknown) (no (unknown) (unknown) lisdexamfetamine (units (unknown) date) 70 mg capsule 70 mg unknown) PO QAM 03/04/19 11/15/20 (unknown) (no (unknown) (unknown) mcg (50,000 unit) (units (unknown) date) capsule unknown) (unknown) (no (unknown) (unknown) methylphenidate (units (unknown) date) HCl 36 mg 36 mg PO unknown) DAILY 01/14/19 01/14/19 (unknown) (no (unknown) (unknown) metoclopramide (units (unknown) date) [From Reglan] unknown) AdvReac Verified 01/14/22 11:00 (unknown) (no (unknown) (unknown) mg tablet (units (unkn own) date) unknown) (unknown) (no (unknown) (unknown) negative for any (units (unknown) date) fractures or tooth unknown) fragments. I have flushed out your wounds (unknown) (no (unknown) (unknown) nifedipine 30 mg (units (unknown) date) tablet,extended 30 unknown) mg PO DAILY 04/27/18 04/27/18 (unknown) (no (unknown) (unknown) ondansetron (units (un known) date) [ONDANSETRON] unknown) Allergy Unknown Verified 01/14/22 11:00 (unknown) (no (unknown) (unknown) oxycodone [From (units (unknown) date) PERCOCET] Allergy unknown) Unknown Verified 01/14/22 11:00 (unknown) (no (unknown) (unknown) pantoprazole 40 mg (units (unknown) date) tablet,delayed 40 unknown) mg PO DAILY 01/14/19 (unknown) (no (unknown) (unknown) pathology (units (unkn own) date) persists, further unknown) assessment with repeat radiographs (7-10 days) or (unknown) (no (unknown) (unknown) point that you (units (unknown) date) cannot drink unknown) fluids, or other new or worsening symptoms. (unknown) (no (unknown) (unknown) prochlorperazine (units (unknown) date) AdvReac Severe unknown) Anxiety Verified 01/14/22 11:00 (unknown) (no (unknown) (unknown) promethazine 25 mg (units (unknown) date) rectal 25 mg AR Q6H unknown) PRN Nausea And 04/27/18 11/15/20 (unknown) (no (unknown) (unknown) promethazine 50 (units (unknown) date) mg/mL injection 1 unknown) dose IV PRN PRN Nausea And 04/27/18 04/27/18 (unknown) (no (unknown) (unknown) radiodense foreign (units (unknown) date) unknown) (unknown) (no (unknown) (unknown) redness, swelling, (units (unknown) date) pain or yellow unknown) discharge, please see your family doctor or (unknown) (no (unknown) (unknown) release (units (unkno wn) date) unknown) (unknown) (no (unknown) (unknown) release 24 hr (units ( unknown) date) unknown) (unknown) (no (unknown) (unknown) sertraline 50 mg (units (unknown) date) tablet (Zoloft) 150 unknown) mg PO QPM 11/23/17 04/27/18 (unknown) (no (unknown) (unknown) since stopped. (units (unknown) date) Patient has unknown) multiple antibiotic allergies. Patient states that (unknown) (no (unknown) (unknown) solution Vomiting (units (unknown) date) unknown) (unknown) (no (unknown) (unknown) subcutaneous pen (units (unknown) date) injector unknown) (unknown) (no (unknown) (unknown) such as worsening (units (unknown) date) pain, severe unknown) headache, confusion, chest pain, difficulty (unknown) (no (unknown) (unknown) suppository (units (un known) date) Vomiting unknown) (unknown) (no (unknown) (unknown) suspicion for (units ( unknown) date) unknown) (unknown) (no (unknown) (unknown) tablet,extended (units (unknown) date) release 24 hr unknown) (unknown) (no (unknown) (unknown) tetanus. We will (units (unknown) date) treat you with a unknown) prophylactic antibiotics for the next 3 days, (unknown) (no (unknown) (unknown) that should not (units (unknown) date) infringe on your unknown) antibiotic allergies. Please follow-up with (unknown) (no (unknown) (unknown) today's note if (units (unknown) date) your PCP is in our unknown) system (unknown) (no (unknown) (unknown) vancomycin Allergy (units (unknown) date) Verified 01/14/22 unknown) 11:00 (unknown) (no (unknown) (unknown) venlafaxine 150 mg (units (unknown) date) 150 mg PO DAILY unknown) 01/14/19 11/15/20 (unknown) (no (unknown) (unknown) with right forearm (units (unknown) date) wounds secondary to unknown) breaking up a dog fight between her fully (unknown) (no (unknown) (unknown) your family doctor (units (unknown) date) as needed. For any unknown) worsening symptoms that include increased Result panel 6 (unknown) (no (unknown) (unknown) (no value) (units (unk nown) date) unknown) (unknown) (no (unknown) (unknown) My Impression: (units (unknown) date) unknown) (unknown) (no (unknown) (unknown) Radiologist's (units ( unknown) date) Impression: unknown) (unknown) (no (unknown) (unknown) (no value) (units (unk nown) date) unknown) (unknown) (no (unknown) (unknown) *Please continue (units (unknown) date) to take your unknown) regular medications as directed. (unknown) (no (unknown) (unknown) Date of Service: (units (unknown) date) 01/14/22 unknown) (unknown) (no (unknown) (unknown) (no value) (units (unk nown) date) unknown) (unknown) (no (unknown) (unknown) <Electronically (units (unknown) date) signed by Denton witt) OSCAR Acevedo> (unknown) (no (unknown) (unknown) 01/14/22 1436 (units ( unknown) date) unknown) (unknown) (no (unknown) (unknown) 1 dose IV PRN PRN (units (unknown) date) (Reason: Nausea And unknown) Vomiting) (unknown) (no (unknown) (unknown) 1 ea Continuous IV (units (unknown) date) Infusion Q20H unknown) (unknown) (no (unknown) (unknown) 1 mg PO DAILY (units ( unknown) date) unknown) (unknown) (no (unknown) (unknown) 1 tab PO Q8H PRN (units (unknown) date) (Reason: pain) Qty: unknown) 7 0RF (unknown) (no (unknown) (unknown) 100 mg PO BID 3 (units (unknown) date) Days Qty: 6 0RF unknown) (unknown) (no (unknown) (unknown) 120 mg SUBCUT (units ( unknown) date) QMONTH unknown) (unknown) (no (unknown) (unknown) [address] [place] [address] (units (unknown) date) unknown) (unknown) (no (unknown) (unknown) 150 mg PO DAILY (units (unknown) date) unknown) (unknown) (no (unknown) (unknown) 150 mg PO QPM (units ( unknown) date) unknown) (unknown) (no (unknown) (unknown) 2 puff INHALATION (units (unknown) date) Q4-6H PRN (Reason: unknown) shortness of breath or wheezing) Qty: (unknown) (no (unknown) (unknown) 25 mg AR Q6H PRN (units (unknown) date) (Reason: Nausea And unknown) Vomiting) (unknown) (no (unknown) (unknown) 30 mg PO DAILY (units (unknown) date) unknown) (unknown) (no (unknown) (unknown) 300 mg PO TID 3 (units (unknown) date) Days Qty: 9 0RF unknown) (unknown) (no (unknown) (unknown) 36 mg PO DAILY (units (unknown) date) unknown) (unknown) (no (unknown) (unknown) 40 mg PO DAILY (units (unknown) date) unknown) (unknown) (no (unknown) (unknown) 50,000 unit PO (units (unknown) date) QWEEK unknown) (unknown) (no (unknown) (unknown) 60 mg PO DAILY (units (unknown) date) unknown) (unknown) (no (unknown) (unknown) 70 mg PO QAM (units (u nknown) date) unknown) (unknown) (no (unknown) (unknown) Allergies (units (unkn own) date) unknown) (unknown) (no (unknown) (unknown) [place], [place] (units ( unknown) date) [id number] unknown) (unknown) (no (unknown) (unknown) ED Orders (units (unkn own) date) unknown) (unknown) (no (unknown) (unknown) Emergency Report (units (unknown) date) unknown) (unknown) (no (unknown) (unknown) Home Medications (units (unknown) date) unknown) (unknown) (no (unknown) (unknown) [facility] (units (unknown) date) unknown) (unknown) (no (unknown) (unknown) [facility] (units (unknown) date) [address] unknown) [place] [address] (unknown) (no (unknown) (unknown) Label Comments: (units (unknown) date) unknown) (unknown) (no (unknown) (unknown) Previous Rx's (units ( unknown) date) unknown) (unknown) (no (unknown) (unknown) RUNS 20 HOURS PER (units (unknown) date) DAY unknown) (unknown) (no (unknown) (unknown) Signed (units (unkno wn) date) unknown) (unknown) (no (unknown) (unknown) TAKE 1 CAPSULE BY (units (unknown) date) MOUTH IN THE unknown) MORNING (unknown) (no (unknown) (unknown) Vital Signs - 8 hr (units (unknown) date) unknown) (unknown) (no (unknown) (unknown) XRay Report (units (un known) date) unknown) (unknown) (no (unknown) (unknown) [ ] New medication (units (unknown) date) written as a paper unknown) prescription (unknown) (no (unknown) (unknown) [ ] No new (units (unk nown) date) medications given unknown) (unknown) (no (unknown) (unknown) [ x] New (units (unkno wn) date) medication unknown) prescriptions sent to your pharmacy: [[facility] in (unknown) (no (unknown) (unknown) (no value) (units (unk nown) date) unknown) (unknown) (no (unknown) (unknown) Emgality Pen 120 (units (unknown) date) mg/mL Pen Injector unknown) (unknown) (no (unknown) (unknown) MR#: [id number] (units (unknown) date) unknown) (unknown) (no (unknown) (unknown) Tpn (units (unkno wn) date) unknown) (unknown) (no (unknown) (unknown) Vyvanse 70 mg (units ( unknown) date) capsule unknown) (unknown) (no (unknown) (unknown) albuterol sulfate (units (unknown) date) [ProAir HFA] 90 unknown) mcg/actuation HFA aerosol inhaler (unknown) (no (unknown) (unknown) clindamycin HCl (units (unknown) date) 300 mg capsule unknown) (unknown) (no (unknown) (unknown) doxazosin 1 mg (units (unknown) date) tablet unknown) (unknown) (no (unknown) (unknown) doxycycline (units (un known) date) hyclate 100 mg unknown) capsule (unknown) (no (unknown) (unknown) ergocalciferol (units (unknown) date) (vitamin D2) 50,000 unknown) unit capsule (unknown) (no (unknown) (unknown) hydrocodone-acetam (units (unknown) date) inophen 5-325 mg unknown) tablet (unknown) (no (unknown) (unknown) lisdexamfetamine (units (unknown) date) 60 mg capsule unknown) (unknown) (no (unknown) (unknown) methylphenidate (units (unknown) date) HCl 36 mg tablet unknown) extended release 24hr (unknown) (no (unknown) (unknown) nifedipine 30 mg (units (unknown) date) tablet extended unknown) release 24hr (unknown) (no (unknown) (unknown) pantoprazole 40 mg (units (unknown) date) tablet,delayed unknown) release (DR/EC) (unknown) (no (unknown) (unknown) promethazine 25 mg (units (unknown) date) suppository unknown) (unknown) (no (unknown) (unknown) promethazine 50 (units (unknown) date) mg/mL Solution unknown) (unknown) (no (unknown) (unknown) sertraline (units (unk nown) date) [Zoloft] 50 mg unknown) Tablet (unknown) (no (unknown) (unknown) venlafaxine 150 mg (units (unknown) date) capsule,extended unknown) release 24hr (unknown) (no (unknown) (unknown) #8.5 grams (units (unk nown) date) unknown) (unknown) (no (unknown) (unknown) 01/14/22 (units (unkno wn) date) unknown) (unknown) (no (unknown) (unknown) Dog bite (units (unkno wn) date) unknown) (unknown) (no (unknown) (unknown) Medication (units (unk nown) date) Instructions unknown) Recorded (unknown) (no (unknown) (unknown) Medication (units (unk nown) date) Instructions unknown) Recorded Confirmed (unknown) (no (unknown) (unknown) [place]] (units (un known) date) unknown) (unknown) (no (unknown) (unknown) caps (units (unkno wn) date) unknown) (unknown) (no (unknown) (unknown) (Emgality Pen) (units (unknown) date) unknown) (unknown) (no (unknown) (unknown) (Vyvanse) (units (unkn own) date) unknown) (unknown) (no (unknown) (unknown) *If you do not (units (unknown) date) have a primary care unknown) provider please contact the [facility] (unknown) (no (unknown) (unknown) *Please follow up (units (unknown) date) with your primary unknown) care provider in 2-3 days, call for an (unknown) (no (unknown) (unknown) *What to do: (units (u nknown) date) unknown) (unknown) (no (unknown) (unknown) *You have been (units (unknown) date) diagnosed with dog unknown) bite to your right forearm. Your x-ray was (unknown) (no (unknown) (unknown) 01/14/22 13:04 (units (unknown) date) unknown) (unknown) (no (unknown) (unknown) 11:00 (units (unkno wn) date) unknown) (unknown) (no (unknown) (unknown) 36-year-old female (units (unknown) date) who is currently unknown) and with multiple antibiotic (unknown) (no (unknown) (unknown) 36-year-old (units (un known) date) female, currently unknown) 28 weeks , presents to the emergency (unknown) (no (unknown) (unknown) 8.5 0RF (units (unkno wn) date) unknown) (unknown) (no (unknown) (unknown) ? (units (unkno wn) date) unknown) (unknown) (no (unknown) (unknown) ? Return to ER if (units (unknown) date) you should have any unknown) new, worsening or concerning symptoms, (unknown) (no (unknown) (unknown) ADHD (units (unkno wn) date) unknown) (unknown) (no (unknown) (unknown) Accession Number: (units (unknown) date) [id number] ?? unknown) (unknown) (no (unknown) (unknown) Acct:[id number] (units (unknown) date) unknown) (unknown) (no (unknown) (unknown) Activity (units (unkno wn) date) Restrictions/Additi unknown) onal Instructions: (unknown) (no (unknown) (unknown) Age/Sex: 36 / F (units (unknown) date) unknown) (unknown) (no (unknown) (unknown) Age/Sex: 36 / F (units (unknown) date) unknown) (unknown) (no (unknown) (unknown) Allergy/AdvReac (units (unknown) date) Type Severity unknown) Reaction Status Date / Time (unknown) (no (unknown) (unknown) Approved by: (units (u nknown) date) Starr Jones unknown) MD Jodi, PhD on 01/14/2022 at 12:29 ? (unknown) (no (unknown) (unknown) Blood Pressure (units (unknown) date) 133/82 01/14/22 unknown) 11:00 (unknown) (no (unknown) (unknown) Blood Pressure (units (unknown) date) 133/82 unknown) (unknown) (no (unknown) (unknown) Bones:? No (units (unk nown) date) fractures or unknown) dislocations.? No suspicious bony lesions.? (unknown) (no (unknown) (unknown) CARDIOVASCULAR: (units (unknown) date) Denies chest pain, unknown) palpitations, edema. (unknown) (no (unknown) (unknown) CARDIOVASCULAR: (units (unknown) date) Regular rate and unknown) rhythm without murmurs, peripheral pulses (unknown) (no (unknown) (unknown) COMPARISON:? None. (units (unknown) date) unknown) (unknown) (no (unknown) (unknown) Chief Complaint: (units (unknown) date) Animal Bite unknown) (unknown) (no (unknown) (unknown) Clinical (units (unkno wn) date) Impression: unknown) (unknown) (no (unknown) (unknown) Course (units (unkno wn) date) unknown) (unknown) (no (unknown) (unknown) : 1985 (units (unknown) date) Acct:[id number] unknown) (unknown) (no (unknown) (unknown) : 1985 (units (unknown) date) unknown) (unknown) (no (unknown) (unknown) DVT (deep venous (units (unknown) date) thrombosis) unknown) (unknown) (no (unknown) (unknown) Date of Service: (units (unknown) date) 01/14/22 unknown) (unknown) (no (unknown) (unknown) Decision was made (units (unknown) date) to treat with unknown) doxycycline and clindamycin for 3 days. Strict (unknown) (no (unknown) (unknown) Departure (units (unkn own) date) unknown) (unknown) (no (unknown) (unknown) Depression (units (unk nown) date) unknown) (unknown) (no (unknown) (unknown) Dictated by: (units (u nknown) date) Starr Jones unknown) MD Jodi, PhD on 01/14/2022 at 12:29 ? ? (unknown) (no (unknown) (unknown) Differential (units (u nknown) date) Diagnosis unknown) (unknown) (no (unknown) (unknown) Differential (units (u nknown) date) diagnosis: Likely unknown) dog bite (unknown) (no (unknown) (unknown) Discharge Plan (units (unknown) date) unknown) (unknown) (no (unknown) (unknown) ER Physician: (units ( unknown) date) Denton Acevedo unknown) (unknown) (no (unknown) (unknown) Exam (units (unkno wn) date) unknown) (unknown) (no (unknown) (unknown) Exam Narrative: (units (unknown) date) unknown) (unknown) (no (unknown) (unknown) Extremity x-ray (units (unknown) date) #1: unknown) (unknown) (no (unknown) (unknown) FINDINGS:? (units (unk nown) date) unknown) (unknown) (no (unknown) (unknown) GASTROINTESTINAL: (units (unknown) date) Denies nausea, unknown) vomiting, abdominal pain, diarrhea, (unknown) (no (unknown) (unknown) GENERAL: Denies (units (unknown) date) chills, fatigue, unknown) fever, sweats. See HPI (unknown) (no (unknown) (unknown) GENERAL: This is a (units (unknown) date) well-nourished, unknown) well-developed patient, in no acute distress (unknown) (no (unknown) (unknown) : Denies (units (unk nown) date) dysuria, frequency, unknown) incontinence, hematuria, urinary retention, (unknown) (no (unknown) (unknown) General (units (unkno wn) date) unknown) (unknown) (no (unknown) (unknown) HEAD: Atraumatic. (units (unknown) date) Normocephalic. unknown) (unknown) (no (unknown) (unknown) HEENT: Denies (units ( unknown) date) sinus pain, ear unknown) pain, sore throat, difficulty swallowing, (unknown) (no (unknown) (unknown) HPI - Animal Bite (units (unknown) date) unknown) (unknown) (no (unknown) (unknown) HPI narrative: (units (unknown) date) unknown) (unknown) (no (unknown) (unknown) History of Present (units (unknown) date) Illness unknown) (unknown) (no (unknown) (unknown) History of (units (unk nown) date) appendectomy unknown) (unknown) (no (unknown) (unknown) Hyperemesis (units (un known) date) affecting unknown) , antepartum (unknown) (no (unknown) (unknown) IMPRESSION:? No (units (unknown) date) fracture. No unknown) osseous lesion. If symptoms and/or clinical (unknown) (no (unknown) (unknown) INDICATIONS:? dog (units (unknown) date) bite unknown) (unknown) (no (unknown) (unknown) Imaging Data (units (u nknown) date) unknown) (unknown) (no (unknown) (unknown) Initial Vital (units ( unknown) date) Signs unknown) (unknown) (no (unknown) (unknown) Initial Vital (units ( unknown) date) Signs: unknown) (unknown) (no (unknown) (unknown) Instructions: DI (units (unknown) date) for Dog Bite unknown) (unknown) (no (unknown) (unknown) Kidney stone (units (u nknown) date) unknown) (unknown) (no (unknown) (unknown) Loc: ED (units (unkno wn) date) unknown) (unknown) (no (unknown) (unknown) MDM - Animal Bite (units (unknown) date) unknown) (unknown) (no (unknown) (unknown) MDM Narrative (units ( unknown) date) unknown) (unknown) (no (unknown) (unknown) MR#: [id number] (units (unknown) date) unknown) (unknown) (no (unknown) (unknown) MSK: Moves all (units (unknown) date) extremities. Normal unknown) range of motion, no clubbing or edema. (unknown) (no (unknown) (unknown) MSK: Denies (units (un known) date) weakness, joint unknown) pain, or bony pain. (unknown) (no (unknown) (unknown) Medical History (units (unknown) date) (Reviewed 01/14/22 unknown) @ 14:32 by OSCAR Jay) (unknown) (no (unknown) (unknown) Medical decision (units (unknown) date) making narrative: unknown) (unknown) (no (unknown) (unknown) Mode of arrival: (units (unknown) date) Ambulatory unknown) (unknown) (no (unknown) (unknown) NEURO: A+O x 3. (units (unknown) date) unknown) (unknown) (no (unknown) (unknown) NEUROLOGIC: Denies (units (unknown) date) weakness, unknown) dizziness, headache, numbness, confusion. (unknown) (no (unknown) (unknown) Narrative (units (unkn own) date) unknown) (unknown) (no (unknown) (unknown) Narrative: (units (unk nown) date) unknown) (unknown) (no (unknown) (unknown) Neurovascularly (units (unknown) date) intact. unknown) (unknown) (no (unknown) (unknown) New (units (unkno wn) date) unknown) (unknown) (no (unknown) (unknown) No Action (units (unkn own) date) unknown) (unknown) (no (unknown) (unknown) Normal forearm (units (unknown) date) unknown) (unknown) (no (unknown) (unknown) Ordered: (units (unkno wn) date) unknown) (unknown) (no (unknown) (unknown) Ordering Provider: (units (unknown) date) Alison Serrato D.O. unknown) (unknown) (no (unknown) (unknown) Orders (units (unkno wn) date) unknown) (unknown) (no (unknown) (unknown) Oxygen Delivery (units (unknown) date) Method 01/14/22 unknown) 11:00 (unknown) (no (unknown) (unknown) Oxygen Delivery (units (unknown) date) Method Room Air unknown) (unknown) (no (unknown) (unknown) PROCEDURE:? XR (units (unknown) date) FOREARM RT 2V unknown) (unknown) (no (unknown) (unknown) PSYCHIATRIC: No (units (unknown) date) concerning unknown) psychosocial issues. (unknown) (no (unknown) (unknown) Patient (units (unkno wn) date) Disposition: Home unknown) (unknown) (no (unknown) (unknown) Patient History (units (unknown) date) unknown) (unknown) (no (unknown) (unknown) Patient states that (units (unknown) date) her last tetanus unknown) shot was in 2019. Patient is here with her (unknown) (no (unknown) (unknown) Patient: Rufus (units (unknown) date) Nell Go unknown) (unknown) (no (unknown) (unknown) Patient: Rufus (units (unknown) date) Nell Go unknown) (unknown) (no (unknown) (unknown) Penicillins (units (un known) date) [PENICILLINS] unknown) Allergy Unknown Verified 01/14/22 11:00 (unknown) (no (unknown) (unknown) Prescriptions: (units (unknown) date) unknown) (unknown) (no (unknown) (unknown) Procedure: XR (units ( unknown) date) forearm RT 2V unknown) (unknown) (no (unknown) (unknown) Pulse Oximetry 95 (units (unknown) date) 01/14/22 11:00 unknown) (unknown) (no (unknown) (unknown) Pulse Oximetry 95 (units (unknown) date) unknown) (unknown) (no (unknown) (unknown) Pulse Rate 94 H (units (unknown) date) 01/14/22 11:00 unknown) (unknown) (no (unknown) (unknown) Pulse Rate 94 H (units (unknown) date) unknown) (unknown) (no (unknown) (unknown) RESPIRATORY: (units (u nknown) date) Breath sounds equal unknown) and clear bilaterally. No wheezes, rales, or (unknown) (no (unknown) (unknown) RESPIRATORY: (units (u nknown) date) Denies dyspnea, unknown) cough, wheezing, sputum. (unknown) (no (unknown) (unknown) Mercy Ruggiero DO (units (unknown) date) [Primary Care unknown) Provider] - (unknown) (no (unknown) (unknown) Referrals: (units (unk nown) date) unknown) (unknown) (no (unknown) (unknown) Related Data (units (u nknown) date) unknown) (unknown) (no (unknown) (unknown) Resource line at (units (unknown) date) [phone]. They unknown) will ask some questions about your medical (unknown) (no (unknown) (unknown) Respiratory Rate (units (unknown) date) 15 01/14/22 11:00 unknown) (unknown) (no (unknown) (unknown) Respiratory Rate (units (unknown) date) 15 unknown) (unknown) (no (unknown) (unknown) Review of Systems (units (unknown) date) unknown) (unknown) (no (unknown) (unknown) SKIN: Endorses 2 (units (unknown) date) puncture wounds to unknown) right forearm. (unknown) (no (unknown) (unknown) SKIN: Warm, dry. (units (unknown) date) Two 0.3 cm puncture unknown) wounds to right medial forearm. Positive (unknown) (no (unknown) (unknown) Signed By: (units (unk nown) date) unknown) (unknown) (no (unknown) (unknown) Smoking Status: (units (unknown) date) Never smoker unknown) (unknown) (no (unknown) (unknown) Smoking Status: (units (unknown) date) Never smoker unknown) (unknown) (no (unknown) (unknown) Social History (units (unknown) date) (Reviewed 01/14/22 unknown) @ 14:32 by OSCAR Jay) (unknown) (no (unknown) (unknown) Soft tissues:? No (units (unknown) date) suspicious soft unknown) tissue calcifications or masses.? No (unknown) (no (unknown) (unknown) Source: patient (units (unknown) date) unknown) (unknown) (no (unknown) (unknown) Stated Complaint: (units (unknown) date) Dog bite right arm unknown) (unknown) (no (unknown) (unknown) Substance Use (units ( unknown) date) Type: does not use unknown) (unknown) (no (unknown) (unknown) Surgical History (units (unknown) date) (Reviewed 01/14/22 unknown) @ 14:32 by OSCAR Jay) (unknown) (no (unknown) (unknown) TECHNIQUE:? 2 (units ( unknown) date) views of the unknown) forearm were acquired.? (unknown) (no (unknown) (unknown) Temperature 97.2 F (units (unknown) date) L 01/14/22 11:00 unknown) (unknown) (no (unknown) (unknown) Temperature 97.2 F (units (unknown) date) L unknown) (unknown) (no (unknown) (unknown) Time Seen by (units (u nknown) date) Provider: 01/14/22 unknown) 13:27 (unknown) (no (unknown) (unknown) Tpn 1 ea (units (unkno wn) date) continuous IV unknown) infusion Q20H 04/27/18 04/27/18 (unknown) (no (unknown) (unknown) Vital Signs (units (un known) date) unknown) (unknown) (no (unknown) (unknown) Vital signs: (units (u nknown) date) unknown) (unknown) (no (unknown) (unknown) XR forearm RT 2V (units (unknown) date) Stat unknown) (unknown) (no (unknown) (unknown) [From Compazine] (units (unknown) date) unknown) (unknown) (no (unknown) (unknown) action. (units (unkno wn) date) unknown) (unknown) (no (unknown) (unknown) advanced (units (unkno wn) date) unknown) (unknown) (no (unknown) (unknown) aerosol inhaler (units (unknown) date) (ProAir HFA) unknown) shortness of breath or wheezing (unknown) (no (unknown) (unknown) albuterol sulfate (units (unknown) date) 90 mcg/actuation 2 unknown) puff inhalation Q4-6H PRN 07/06/19 (unknown) (no (unknown) (unknown) alcohol intake (units (unknown) date) frequency: unknown) holidays/special occasions only (unknown) (no (unknown) (unknown) allergies, presents (units (unknown) date) emergency unknown) department with puncture wounds from breaking up a (unknown) (no (unknown) (unknown) and placed a (units (u nknown) date) Band-Aid on them. unknown) You have stated that you are up-to-date on your (unknown) (no (unknown) (unknown) antibiotics for (units (unknown) date) the next 3 days. unknown) Please follow-up with your family doctor as (unknown) (no (unknown) (unknown) appointment. Let (units (unknown) date) them know you were unknown) seen in the Emergency Department and that we (unknown) (no (unknown) (unknown) ask that you be (units (unknown) date) seen in follow up. unknown) We will electronically transmit a record of (unknown) (no (unknown) (unknown) between her fully (units (unknown) date) immunized home unknown) pets. Patient reports that the sites bled (unknown) (no (unknown) (unknown) body.? No soft (units (unknown) date) tissue gas.? unknown) (unknown) (no (unknown) (unknown) breathing, fever (units (unknown) date) greater than 101 F, unknown) shaking chills, persistent vomiting to the (unknown) (no (unknown) (unknown) bruising and no (units (unknown) date) active bleeding. unknown) (unknown) (no (unknown) (unknown) capsule,extended (units (unknown) date) release 24 hr unknown) (unknown) (no (unknown) (unknown) cephalexin (units (unk nown) date) [CEPHALEXIN] unknown) Allergy Unknown Verified 01/14/22 11:00 (unknown) (no (unknown) (unknown) clindamycin HCl (units (unknown) date) 300 mg capsule 300 unknown) mg PO TID dog bite 3 days #9 01/14/22 (unknown) (no (unknown) (unknown) constipation. (units ( unknown) date) unknown) (unknown) (no (unknown) (unknown) consultation with (units (unknown) date) Dr. Serrato and shared unknown) decision making with patient and spouse. (unknown) (no (unknown) (unknown) department with (units (unknown) date) right forearm unknown) wounds secondary to breaking up a dog fight (unknown) (no (unknown) (unknown) discussed options (units (unknown) date) and decided that we unknown) willl treat you with prophylactic (unknown) (no (unknown) (unknown) dizziness. (units (unk nown) date) unknown) (unknown) (no (unknown) (unknown) dog fight between (units (unknown) date) her 2 fully unknown) immunized dogs. Sites were flushed out with (unknown) (no (unknown) (unknown) doxazosin 1 mg (units (unknown) date) tablet 1 mg PO unknown) DAILY 01/14/19 01/14/19 (unknown) (no (unknown) (unknown) doxycycline (units (un known) date) hyclate 100 mg unknown) capsule 100 mg PO BID dog bite 3 days #6 01/14/22 (unknown) (no (unknown) (unknown) ergocalciferol (units (unknown) date) (vitamin D2) 1,250 unknown) 50,000 unit PO QWEEK 01/14/19 01/14/19 (unknown) (no (unknown) (unknown) flank pain. (units (un known) date) unknown) (unknown) (no (unknown) (unknown) galcanezumab-gnlm (units (unknown) date) 120 mg/mL 120 mg unknown) SUBCUT QMONTH 11/15/20 11/15/20 (unknown) (no (unknown) (unknown) history and help (units (unknown) date) get you set up with unknown) a doctor in the community. (unknown) (no (unknown) (unknown) household members: (units (unknown) date) spouse and children unknown) (unknown) (no (unknown) (unknown) . (units (unkno wn) date) unknown) (unknown) (no (unknown) (unknown) hydrocodone 5 (units ( unknown) date) mg-acetaminophen unknown) 325 1 tab PO Q8H PRN pain #7 tabs 02/17/21 (unknown) (no (unknown) (unknown) imaging (e.g. CT, (units (unknown) date) MRI or bone scan) unknown) should be considered. (unknown) (no (unknown) (unknown) intact, cap refill (units (unknown) date) <2 sec. unknown) (unknown) (no (unknown) (unknown) latex [LATEX] (units ( unknown) date) Allergy Unknown unknown) Verified 01/14/22 11:00 (unknown) (no (unknown) (unknown) levofloxacin [From (units (unknown) date) LEVAQUIN] Allergy unknown) Unknown Verified 01/14/22 11:00 (unknown) (no (unknown) (unknown) lisdexamfetamine (units (unknown) date) 60 mg capsule 60 mg unknown) PO DAILY 01/14/19 01/14/19 (unknown) (no (unknown) (unknown) lisdexamfetamine (units (unknown) date) 70 mg capsule 70 mg unknown) PO QAM 03/04/19 11/15/20 (unknown) (no (unknown) (unknown) mcg (50,000 unit) (units (unknown) date) capsule unknown) (unknown) (no (unknown) (unknown) methylphenidate (units (unknown) date) HCl 36 mg 36 mg PO unknown) DAILY 01/14/19 01/14/19 (unknown) (no (unknown) (unknown) metoclopramide (units (unknown) date) [From Reglan] unknown) AdvReac Verified 01/14/22 11:00 (unknown) (no (unknown) (unknown) mg tablet (units (unkn own) date) unknown) (unknown) (no (unknown) (unknown) needed. For any (units (unknown) date) worsening symptoms unknown) that include difficulty breathing chest (unknown) (no (unknown) (unknown) negative for any (units (unknown) date) fractures or tooth unknown) fragments. I have flushed out your wounds (unknown) (no (unknown) (unknown) nifedipine 30 mg (units (unknown) date) tablet,extended 30 unknown) mg PO DAILY 04/27/18 04/27/18 (unknown) (no (unknown) (unknown) normal saline and (units (unknown) date) dressed with a unknown) Band-Aid. Patient is up-to-date with her (unknown) (no (unknown) (unknown) ondansetron (units (un known) date) [ONDANSETRON] unknown) Allergy Unknown Verified 01/14/22 11:00 (unknown) (no (unknown) (unknown) oxycodone [From (units (unknown) date) PERCOCET] Allergy unknown) Unknown Verified 01/14/22 11:00 (unknown) (no (unknown) (unknown) pain, increased (units (unknown) date) wound redness, unknown) swelling, pain or yellow discharge, please see (unknown) (no (unknown) (unknown) pantoprazole 40 mg (units (unknown) date) tablet,delayed 40 unknown) mg PO DAILY 01/14/19 (unknown) (no (unknown) (unknown) pathology (units (unkn own) date) persists, further unknown) assessment with repeat radiographs (7-10 days) or (unknown) (no (unknown) (unknown) point that you (units (unknown) date) cannot drink unknown) fluids, or other new or worsening symptoms. (unknown) (no (unknown) (unknown) prochlorperazine (units (unknown) date) AdvReac Severe unknown) Anxiety Verified 01/14/22 11:00 (unknown) (no (unknown) (unknown) profusely and has (units (unknown) date) since stopped. unknown) Patient has multiple antibiotic allergies. (unknown) (no (unknown) (unknown) promethazine 25 mg (units (unknown) date) rectal 25 mg AR Q6H unknown) PRN Nausea And 04/27/18 11/15/20 (unknown) (no (unknown) (unknown) promethazine 50 (units (unknown) date) mg/mL injection 1 unknown) dose IV PRN PRN Nausea And 04/27/18 04/27/18 (unknown) (no (unknown) (unknown) radiodense foreign (units (unknown) date) unknown) (unknown) (no (unknown) (unknown) release (units (unkno wn) date) unknown) (unknown) (no (unknown) (unknown) release 24 hr (units ( unknown) date) unknown) (unknown) (no (unknown) (unknown) return precautions (units (unknown) date) given. Patient and unknown) spouse were agreeable with course of (unknown) (no (unknown) (unknown) rhonchi. No cough. (units (unknown) date) No increased unknown) respiratory effort. No accessory muscle use. (unknown) (no (unknown) (unknown) sertraline 50 mg (units (unknown) date) tablet (Zoloft) 150 unknown) mg PO QPM 11/23/17 04/27/18 (unknown) (no (unknown) (unknown) solution Vomiting (units (unknown) date) unknown) (unknown) (no (unknown) (unknown) subcutaneous pen (units (unknown) date) injector unknown) (unknown) (no (unknown) (unknown) such as worsening (units (unknown) date) pain, severe unknown) headache, confusion, chest pain, difficulty (unknown) (no (unknown) (unknown) suppository (units (un known) date) Vomiting unknown) (unknown) (no (unknown) (unknown) suspicion for (units ( unknown) date) unknown) (unknown) (no (unknown) (unknown) tablet,extended (units (unknown) date) release 24 hr unknown) (unknown) (no (unknown) (unknown) tetanus. Careful (units (unknown) date) consideration unknown) regarding antibiotic therapy included (unknown) (no (unknown) (unknown) tetanus. Due to (units (unknown) date) your many unknown) antibiotic allergies and your , we have (unknown) (no (unknown) (unknown) today's note if (units (unknown) date) your PCP is in our unknown) system (unknown) (no (unknown) (unknown) vancomycin Allergy (units (unknown) date) Verified 01/14/22 unknown) 11:00 (unknown) (no (unknown) (unknown) venlafaxine 150 mg (units (unknown) date) 150 mg PO DAILY unknown) 01/14/19 11/15/20 (unknown) (no (unknown) (unknown) your family doctor (units (unknown) date) or feel free to unknown) return to the emergency department. Result panel 7 (unknown) (no (unknown) (unknown) (no value) (units (unk nown) date) unknown) (unknown) (no (unknown) (unknown) My Impression: (units (unknown) date) unknown) (unknown) (no (unknown) (unknown) Radiologist's (units ( unknown) date) Impression: unknown) (unknown) (no (unknown) (unknown) (no value) (units (unk nown) date) unknown) (unknown) (no (unknown) (unknown) *Please continue (units (unknown) date) to take your unknown) regular medications as directed. (unknown) (no (unknown) (unknown) Date of Service: (units (unknown) date) 01/14/22 unknown) (unknown) (no (unknown) (unknown) (no value) (units (unk nown) date) unknown) (unknown) (no (unknown) (unknown) <Electronically (units (unknown) date) signed by Denton witt) OSCAR Acevedo> (unknown) (no (unknown) (unknown) <Electronically (units (unknown) date) signed by Alison Fish unknown) Ama Oneil.OTrina> (unknown) (no (unknown) (unknown) <Electronically (units (unknown) date) signed by Alison Fish unknown) Robert SerratoOTrina> (unknown) (no (unknown) (unknown) 01/14/22 1436 (units ( unknown) date) unknown) (unknown) (no (unknown) (unknown) 01/17/22 0851 (units ( unknown) date) unknown) (unknown) (no (unknown) (unknown) 1 dose IV PRN PRN (units (unknown) date) (Reason: Nausea And unknown) Vomiting) (unknown) (no (unknown) (unknown) 1 ea Continuous IV (units (unknown) date) Infusion Q20H unknown) (unknown) (no (unknown) (unknown) 1 mg PO DAILY (units ( unknown) date) unknown) (unknown) (no (unknown) (unknown) 1 tab PO Q8H PRN (units (unknown) date) (Reason: pain) Qty: unknown) 7 0RF (unknown) (no (unknown) (unknown) 120 mg SUBCUT (units ( unknown) date) QMONTH unknown) (unknown) (no (unknown) (unknown) [address] (units (unknown) date) unknown) (unknown) (no (unknown) (unknown) 150 mg PO DAILY (units (unknown) date) unknown) (unknown) (no (unknown) (unknown) 150 mg PO QPM (units ( unknown) date) unknown) (unknown) (no (unknown) (unknown) 2 puff INHALATION (units (unknown) date) Q4-6H PRN (Reason: unknown) shortness of breath or wheezing) Qty: (unknown) (no (unknown) (unknown) 25 mg AR Q6H PRN (units (unknown) date) (Reason: Nausea And unknown) Vomiting) (unknown) (no (unknown) (unknown) 30 mg PO DAILY (units (unknown) date) unknown) (unknown) (no (unknown) (unknown) 36 mg PO DAILY (units (unknown) date) unknown) (unknown) (no (unknown) (unknown) 40 mg PO DAILY (units (unknown) date) unknown) (unknown) (no (unknown) (unknown) 50,000 unit PO (units (unknown) date) QWEEK unknown) (unknown) (no (unknown) (unknown) 60 mg PO DAILY (units (unknown) date) unknown) (unknown) (no (unknown) (unknown) 70 mg PO QAM (units (u nknown) date) unknown) (unknown) (no (unknown) (unknown) Allergies (units (unkn own) date) unknown) (unknown) (no (unknown) (unknown) [place] (units ( unknown) date) [id number] unknown) (unknown) (no (unknown) (unknown) ED Orders (units (unkn own) date) unknown) (unknown) (no (unknown) (unknown) Emergency Report (units (unknown) date) unknown) (unknown) (no (unknown) (unknown) Home Medications (units (unknown) date) unknown) (unknown) (no (unknown) (unknown) [facility] (units (unknown) date) unknown) (unknown) (no (unknown) (unknown) [facility] (units (unknown) date) [address] unknown) [place] [address] (unknown) (no (unknown) (unknown) Label Comments: (units (unknown) date) unknown) (unknown) (no (unknown) (unknown) Previous Rx's (units ( unknown) date) unknown) (unknown) (no (unknown) (unknown) RUNS 20 HOURS PER (units (unknown) date) DAY unknown) (unknown) (no (unknown) (unknown) Signed (units (unkno wn) date) unknown) (unknown) (no (unknown) (unknown) TAKE 1 CAPSULE BY (units (unknown) date) MOUTH IN THE unknown) MORNING (unknown) (no (unknown) (unknown) Vital Signs - 8 hr (units (unknown) date) unknown) (unknown) (no (unknown) (unknown) XRay Report (units (un known) date) unknown) (unknown) (no (unknown) (unknown) [ ] New medication (units (unknown) date) written as a paper unknown) prescription (unknown) (no (unknown) (unknown) [ ] No new (units (unk nown) date) medications given unknown) (unknown) (no (unknown) (unknown) [ x] New (units (unkno wn) date) medication unknown) prescriptions sent to your pharmacy: [[facility] in (unknown) (no (unknown) (unknown) (no value) (units (unk nown) date) unknown) (unknown) (no (unknown) (unknown) Emgality Pen 120 (units (unknown) date) mg/mL Pen Injector unknown) (unknown) (no (unknown) (unknown) MR#: [id number] (units (unknown) date) unknown) (unknown) (no (unknown) (unknown) Tpn (units (unkno wn) date) unknown) (unknown) (no (unknown) (unknown) Vyvanse 70 mg (units ( unknown) date) capsule unknown) (unknown) (no (unknown) (unknown) albuterol sulfate (units (unknown) date) [ProAir HFA] 90 unknown) mcg/actuation HFA aerosol inhaler (unknown) (no (unknown) (unknown) doxazosin 1 mg (units (unknown) date) tablet unknown) (unknown) (no (unknown) (unknown) ergocalciferol (units (unknown) date) (vitamin D2) 50,000 unknown) unit capsule (unknown) (no (unknown) (unknown) hydrocodone-acetam (units (unknown) date) inophen 5-325 mg unknown) tablet (unknown) (no (unknown) (unknown) lisdexamfetamine (units (unknown) date) 60 mg capsule unknown) (unknown) (no (unknown) (unknown) methylphenidate (units (unknown) date) HCl 36 mg tablet unknown) extended release 24hr (unknown) (no (unknown) (unknown) nifedipine 30 mg (units (unknown) date) tablet extended unknown) release 24hr (unknown) (no (unknown) (unknown) pantoprazole 40 mg (units (unknown) date) tablet,delayed unknown) release (DR/EC) (unknown) (no (unknown) (unknown) promethazine 25 mg (units (unknown) date) suppository unknown) (unknown) (no (unknown) (unknown) promethazine 50 (units (unknown) date) mg/mL Solution unknown) (unknown) (no (unknown) (unknown) sertraline (units (unk nown) date) [Zoloft] 50 mg unknown) Tablet (unknown) (no (unknown) (unknown) venlafaxine 150 mg (units (unknown) date) capsule,extended unknown) release 24hr (unknown) (no (unknown) (unknown) #8.5 grams (units (unk nown) date) unknown) (unknown) (no (unknown) (unknown) 01/14/22 (units (unkno wn) date) unknown) (unknown) (no (unknown) (unknown) Dog bite (units (unkno wn) date) unknown) (unknown) (no (unknown) (unknown) Medication (units (unk nown) date) Instructions unknown) Recorded (unknown) (no (unknown) (unknown) Medication (units (unk nown) date) Instructions unknown) Recorded Confirmed (unknown) (no (unknown) (unknown) [place]] (units (un known) date) unknown) (unknown) (no (unknown) (unknown) <Denton Acevedo, (units (unknown) date) PRINTER REPAIR TECHNICIAN - Last Filed: unknown) 01/14/22 14:36> (unknown) (no (unknown) (unknown) <Alison Serrato, DO (units (unknown) date) - Last Filed: unknown) 01/17/22 08:51> (unknown) (no (unknown) (unknown) <cosigner> (units (unk nown) date) unknown) (unknown) (no (unknown) (unknown) (Emgality Pen) (units (unknown) date) unknown) (unknown) (no (unknown) (unknown) (Vyvanse) (units (unkn own) date) unknown) (unknown) (no (unknown) (unknown) *If you do not (units (unknown) date) have a primary care unknown) provider please contact the [facility] (unknown) (no (unknown) (unknown) *Please follow up (units (unknown) date) with your primary unknown) care provider in 2-3 days, call for an (unknown) (no (unknown) (unknown) *What to do: (units (u nknown) date) unknown) (unknown) (no (unknown) (unknown) *You have been (units (unknown) date) diagnosed with dog unknown) bite to your right forearm. Your x-ray was (unknown) (no (unknown) (unknown) 01/14/22 13:04 (units (unknown) date) unknown) (unknown) (no (unknown) (unknown) 11:00 (units (unkno wn) date) unknown) (unknown) (no (unknown) (unknown) 36-year-old female (units (unknown) date) who is currently unknown) and with multiple antibiotic (unknown) (no (unknown) (unknown) 36-year-old (units (un known) date) female, currently unknown) 28 weeks , presents to the emergency (unknown) (no (unknown) (unknown) 8.5 0RF (units (unkno wn) date) unknown) (unknown) (no (unknown) (unknown) ? (units (unkno wn) date) unknown) (unknown) (no (unknown) (unknown) ? Return to ER if (units (unknown) date) you should have any unknown) new, worsening or concerning symptoms, (unknown) (no (unknown) (unknown) ADHD (units (unkno wn) date) unknown) (unknown) (no (unknown) (unknown) Accession Number: (units (unknown) date) [id number] ?? unknown) (unknown) (no (unknown) (unknown) Acct:[id number] (units (unknown) date) unknown) (unknown) (no (unknown) (unknown) Activity (units (unkno wn) date) Restrictions/Additi unknown) onal Instructions: (unknown) (no (unknown) (unknown) Age/Sex: 36 / F (units (unknown) date) unknown) (unknown) (no (unknown) (unknown) Age/Sex: 36 / F (units (unknown) date) unknown) (unknown) (no (unknown) (unknown) Allergy/AdvReac (units (unknown) date) Type Severity unknown) Reaction Status Date / Time (unknown) (no (unknown) (unknown) Approved by: (units (u nknown) date) Starr Jones unknown) MD Jodi, PhD on 01/14/2022 at 12:29 ? (unknown) (no (unknown) (unknown) Blood Pressure (units (unknown) date) 133/82 01/14/22 unknown) 11:00 (unknown) (no (unknown) (unknown) Blood Pressure (units (unknown) date) unknown) (unknown) (no (unknown) (unknown) Bones:? No (units (unk nown) date) fractures or unknown) dislocations.? No suspicious bony lesions.? (unknown) (no (unknown) (unknown) CARDIOVASCULAR: (units (unknown) date) Denies chest pain, unknown) palpitations, edema. (unknown) (no (unknown) (unknown) CARDIOVASCULAR: (units (unknown) date) Regular rate and unknown) rhythm without murmurs, peripheral pulses (unknown) (no (unknown) (unknown) COMPARISON:? None. (units (unknown) date) unknown) (unknown) (no (unknown) (unknown) Chief Complaint: (units (unknown) date) Animal Bite unknown) (unknown) (no (unknown) (unknown) Clinical (units (unkno wn) date) Impression: unknown) (unknown) (no (unknown) (unknown) Cosign (units (unkno wn) date) unknown) (unknown) (no (unknown) (unknown) Course (units (unkno wn) date) unknown) (unknown) (no (unknown) (unknown) : 1985 (units (unknown) date) Acct:[id number] unknown) (unknown) (no (unknown) (unknown) : 1985 (units (unknown) date) unknown) (unknown) (no (unknown) (unknown) DVT (deep venous (units (unknown) date) thrombosis) unknown) (unknown) (no (unknown) (unknown) Date of Service: (units (unknown) date) 01/14/22 unknown) (unknown) (no (unknown) (unknown) Decision was made (units (unknown) date) to treat with unknown) doxycycline and clindamycin for 3 days. Strict (unknown) (no (unknown) (unknown) Departure (units (unkn own) date) unknown) (unknown) (no (unknown) (unknown) Depression (units (unk nown) date) unknown) (unknown) (no (unknown) (unknown) Dictated by: (units (u nknown) date) Starr Jones unknown) MD Jodi, PhD on 01/14/2022 at 12:29 ? ? (unknown) (no (unknown) (unknown) Differential (units (u nknown) date) Diagnosis unknown) (unknown) (no (unknown) (unknown) Differential (units (u nknown) date) diagnosis: Likely unknown) dog bite (unknown) (no (unknown) (unknown) Discharge Plan (units (unknown) date) unknown) (unknown) (no (unknown) (unknown) ED Attending (units (u nknown) date) Cosignature unknown) Attestation: (unknown) (no (unknown) (unknown) ER Physician: (units ( unknown) date) Denton Acevedo unknown) (unknown) (no (unknown) (unknown) Exam (units (unkno wn) date) unknown) (unknown) (no (unknown) (unknown) Exam Narrative: (units (unknown) date) unknown) (unknown) (no (unknown) (unknown) Extremity x-ray (units (unknown) date) #1: unknown) (unknown) (no (unknown) (unknown) FINDINGS:? (units (unk nown) date) unknown) (unknown) (no (unknown) (unknown) GASTROINTESTINAL: (units (unknown) date) Denies nausea, unknown) vomiting, abdominal pain, diarrhea, (unknown) (no (unknown) (unknown) GENERAL: Denies (units (unknown) date) chills, fatigue, unknown) fever, sweats. See HPI (unknown) (no (unknown) (unknown) GENERAL: This is a (units (unknown) date) well-nourished, unknown) well-developed patient, in no acute distress (unknown) (no (unknown) (unknown) : Denies (units (unk nown) date) dysuria, frequency, unknown) incontinence, hematuria, urinary retention, (unknown) (no (unknown) (unknown) General (units (unkno wn) date) unknown) (unknown) (no (unknown) (unknown) HEAD: Atraumatic. (units (unknown) date) Normocephalic. unknown) (unknown) (no (unknown) (unknown) HEENT: Denies (units ( unknown) date) sinus pain, ear unknown) pain, sore throat, difficulty swallowing, (unknown) (no (unknown) (unknown) HPI - Animal Bite (units (unknown) date) unknown) (unknown) (no (unknown) (unknown) HPI narrative: (units (unknown) date) unknown) (unknown) (no (unknown) (unknown) History of Present (units (unknown) date) Illness unknown) (unknown) (no (unknown) (unknown) History of (units (unk nown) date) appendectomy unknown) (unknown) (no (unknown) (unknown) Hyperemesis (units (un known) date) affecting unknown) , antepartum (unknown) (no (unknown) (unknown) I was immediately (units (unknown) date) available in the unknown) department for consultation. Documentation (unknown) (no (unknown) (unknown) IMPRESSION:? No (units (unknown) date) fracture. No unknown) osseous lesion. If symptoms and/or clinical (unknown) (no (unknown) (unknown) INDICATIONS:? dog (units (unknown) date) bite unknown) (unknown) (no (unknown) (unknown) Imaging Data (units (u nknown) date) unknown) (unknown) (no (unknown) (unknown) Initial Vital (units ( unknown) date) Signs unknown) (unknown) (no (unknown) (unknown) Initial Vital (units ( unknown) date) Signs: unknown) (unknown) (no (unknown) (unknown) Instructions: DI (units (unknown) date) for Dog Bite unknown) (unknown) (no (unknown) (unknown) Kidney stone (units (u nknown) date) unknown) (unknown) (no (unknown) (unknown) Loc: ED (units (unkno wn) date) unknown) (unknown) (no (unknown) (unknown) MDM - Animal Bite (units (unknown) date) unknown) (unknown) (no (unknown) (unknown) MDM Narrative (units ( unknown) date) unknown) (unknown) (no (unknown) (unknown) MR#: [id number] (units (unknown) date) unknown) (unknown) (no (unknown) (unknown) MSK: Moves all (units (unknown) date) extremities. Normal unknown) range of motion, no clubbing or edema. (unknown) (no (unknown) (unknown) MSK: Denies (units (un known) date) weakness, joint unknown) pain, or bony pain. (unknown) (no (unknown) (unknown) Medical History (units (unknown) date) (Reviewed 01/14/22 unknown) @ 14:32 by OSCAR Jay) (unknown) (no (unknown) (unknown) Medical decision (units (unknown) date) making narrative: unknown) (unknown) (no (unknown) (unknown) Mode of arrival: (units (unknown) date) Ambulatory unknown) (unknown) (no (unknown) (unknown) NEURO: A+O x 3. (units (unknown) date) unknown) (unknown) (no (unknown) (unknown) NEUROLOGIC: Denies (units (unknown) date) weakness, unknown) dizziness, headache, numbness, confusion. (unknown) (no (unknown) (unknown) Narrative (units (unkn own) date) unknown) (unknown) (no (unknown) (unknown) Narrative: (units (unk nown) date) unknown) (unknown) (no (unknown) (unknown) Neurovascularly (units (unknown) date) intact. unknown) (unknown) (no (unknown) (unknown) No Action (units (unkn own) date) unknown) (unknown) (no (unknown) (unknown) Normal forearm (units (unknown) date) unknown) (unknown) (no (unknown) (unknown) Ordered: (units (unkno wn) date) unknown) (unknown) (no (unknown) (unknown) Ordering Provider: (units (unknown) date) Alison Serrato D.O. unknown) (unknown) (no (unknown) (unknown) Orders (units (unkno wn) date) unknown) (unknown) (no (unknown) (unknown) Oxygen Delivery (units (unknown) date) Method 01/14/22 unknown) 11:00 (unknown) (no (unknown) (unknown) Oxygen Delivery (units (unknown) date) Method Room Air unknown) (unknown) (no (unknown) (unknown) PROCEDURE:? XR (units (unknown) date) FOREARM RT 2V unknown) (unknown) (no (unknown) (unknown) PSYCHIATRIC: No (units (unknown) date) concerning unknown) psychosocial issues. (unknown) (no (unknown) (unknown) Patient (units (unkno wn) date) Disposition: Home unknown) (unknown) (no (unknown) (unknown) Patient History (units (unknown) date) unknown) (unknown) (no (unknown) (unknown) Patient states that (units (unknown) date) her last tetanus unknown) shot was in 2019. Patient is here with her (unknown) (no (unknown) (unknown) Patient: Rufus (units (unknown) date) Nell Go unknown) (unknown) (no (unknown) (unknown) Patient: Rufus (units (unknown) date) Nell Go unknown) (unknown) (no (unknown) (unknown) Penicillins (units (un known) date) [PENICILLINS] unknown) Allergy Unknown Verified 01/14/22 11:00 (unknown) (no (unknown) (unknown) Prescriptions: (units (unknown) date) unknown) (unknown) (no (unknown) (unknown) Procedure: XR (units ( unknown) date) forearm RT 2V unknown) (unknown) (no (unknown) (unknown) Pulse Oximetry 95 (units (unknown) date) 01/14/22 11:00 unknown) (unknown) (no (unknown) (unknown) Pulse Oximetry 95 (units (unknown) date) unknown) (unknown) (no (unknown) (unknown) Pulse Rate 94 H (units (unknown) date) 01/14/22 11:00 unknown) (unknown) (no (unknown) (unknown) Pulse Rate 94 H (units (unknown) date) unknown) (unknown) (no (unknown) (unknown) RESPIRATORY: (units (u nknown) date) Breath sounds equal unknown) and clear bilaterally. No wheezes, rales, or (unknown) (no (unknown) (unknown) RESPIRATORY: (units (u nknown) date) Denies dyspnea, unknown) cough, wheezing, sputum. (unknown) (no (unknown) (unknown) Mercy Ruggiero DO (units (unknown) date) [Primary Care unknown) Provider] - (unknown) (no (unknown) (unknown) Referrals: (units (unk nown) date) unknown) (unknown) (no (unknown) (unknown) Related Data (units (u nknown) date) unknown) (unknown) (no (unknown) (unknown) Resource line at (units (unknown) date) [phone]. They unknown) will ask some questions about your medical (unknown) (no (unknown) (unknown) Respiratory Rate (units (unknown) date) 15 01/14/22 11:00 unknown) (unknown) (no (unknown) (unknown) Respiratory Rate (units (unknown) date) 15 unknown) (unknown) (no (unknown) (unknown) Review of Systems (units (unknown) date) unknown) (unknown) (no (unknown) (unknown) SKIN: Endorses 2 (units (unknown) date) puncture wounds to unknown) right forearm. (unknown) (no (unknown) (unknown) SKIN: Warm, dry. (units (unknown) date) Two 0.3 cm puncture unknown) wounds to right medial forearm. Positive (unknown) (no (unknown) (unknown) Signed By: (units (unk nown) date) unknown) (unknown) (no (unknown) (unknown) Smoking Status: (units (unknown) date) Never smoker unknown) (unknown) (no (unknown) (unknown) Smoking Status: (units (unknown) date) Never smoker unknown) (unknown) (no (unknown) (unknown) Social History (units (unknown) date) (Reviewed 01/14/22 unknown) @ 14:32 by OSCAR Jay) (unknown) (no (unknown) (unknown) Soft tissues:? No (units (unknown) date) suspicious soft unknown) tissue calcifications or masses.? No (unknown) (no (unknown) (unknown) Source: patient (units (unknown) date) unknown) (unknown) (no (unknown) (unknown) Stated Complaint: (units (unknown) date) Dog bite right arm unknown) (unknown) (no (unknown) (unknown) Substance Use (units ( unknown) date) Type: does not use unknown) (unknown) (no (unknown) (unknown) Surgical History (units (unknown) date) (Reviewed 01/14/22 unknown) @ 14:32 by OSCAR Jay) (unknown) (no (unknown) (unknown) TECHNIQUE:? 2 (units ( unknown) date) views of the unknown) forearm were acquired.? (unknown) (no (unknown) (unknown) Temperature 97.2 F (units (unknown) date) L 01/14/22 11:00 unknown) (unknown) (no (unknown) (unknown) Temperature 97.2 F (units (unknown) date) L unknown) (unknown) (no (unknown) (unknown) Time Seen by (units (u nknown) date) Provider: 01/14/22 unknown) 13:27 (unknown) (no (unknown) (unknown) Tpn 1 ea (units (unkno wn) date) continuous IV unknown) infusion Q20H 04/27/18 04/27/18 (unknown) (no (unknown) (unknown) Visit Report (units (u nknown) date) Forms: Patient unknown) Portal/API (unknown) (no (unknown) (unknown) Vital Signs (units (un known) date) unknown) (unknown) (no (unknown) (unknown) Vital signs: (units (u nknown) date) unknown) (unknown) (no (unknown) (unknown) XR forearm RT 2V (units (unknown) date) Stat unknown) (unknown) (no (unknown) (unknown) [From Compazine] (units (unknown) date) unknown) (unknown) (no (unknown) (unknown) action. (units (unkno wn) date) unknown) (unknown) (no (unknown) (unknown) advanced (units (unkno wn) date) unknown) (unknown) (no (unknown) (unknown) aerosol inhaler (units (unknown) date) (ProAir HFA) unknown) shortness of breath or wheezing (unknown) (no (unknown) (unknown) albuterol sulfate (units (unknown) date) 90 mcg/actuation 2 unknown) puff inhalation Q4-6H PRN 07/06/19 (unknown) (no (unknown) (unknown) alcohol intake (units (unknown) date) frequency: unknown) holidays/special occasions only (unknown) (no (unknown) (unknown) allergies, presents (units (unknown) date) emergency unknown) department with puncture wounds from breaking up a (unknown) (no (unknown) (unknown) and placed a (units (u nknown) date) Band-Aid on them. unknown) You have stated that you are up-to-date on your (unknown) (no (unknown) (unknown) antibiotics for (units (unknown) date) the next 3 days. unknown) Please follow-up with your family doctor as (unknown) (no (unknown) (unknown) appointment. Let (units (unknown) date) them know you were unknown) seen in the Emergency Department and that we (unknown) (no (unknown) (unknown) ask that you be (units (unknown) date) seen in follow up. unknown) We will electronically transmit a record of (unknown) (no (unknown) (unknown) between her fully (units (unknown) date) immunized home unknown) pets. Patient reports that the sites bled (unknown) (no (unknown) (unknown) body.? No soft (units (unknown) date) tissue gas.? unknown) (unknown) (no (unknown) (unknown) breathing, fever (units (unknown) date) greater than 101 F, unknown) shaking chills, persistent vomiting to the (unknown) (no (unknown) (unknown) bruising and no (units (unknown) date) active bleeding. unknown) (unknown) (no (unknown) (unknown) capsule,extended (units (unknown) date) release 24 hr unknown) (unknown) (no (unknown) (unknown) cephalexin (units (unk nown) date) [CEPHALEXIN] unknown) Allergy Unknown Verified 01/14/22 11:00 (unknown) (no (unknown) (unknown) constipation. (units ( unknown) date) unknown) (unknown) (no (unknown) (unknown) consultation with (units (unknown) date) Dr. Serrato and shared unknown) decision making with patient and spouse. (unknown) (no (unknown) (unknown) decision making. (units (unknown) date) unknown) (unknown) (no (unknown) (unknown) department with (units (unknown) date) right forearm unknown) wounds secondary to breaking up a dog fight (unknown) (no (unknown) (unknown) discussed options (units (unknown) date) and decided that we unknown) willl treat you with prophylactic (unknown) (no (unknown) (unknown) dizziness. (units (unk nown) date) unknown) (unknown) (no (unknown) (unknown) dog bite. Reviewed (units (unknown) date) patient's allergies unknown) her actual allergic responses. Patient (unknown) (no (unknown) (unknown) dog fight between (units (unknown) date) her 2 fully unknown) immunized dogs. Sites were flushed out with (unknown) (no (unknown) (unknown) doxazosin 1 mg (units (unknown) date) tablet 1 mg PO unknown) DAILY 01/14/19 01/14/19 (unknown) (no (unknown) (unknown) ergocalciferol (units (unknown) date) (vitamin D2) 1,250 unknown) 50,000 unit PO QWEEK 01/14/19 01/14/19 (unknown) (no (unknown) (unknown) flank pain. (units (un known) date) unknown) (unknown) (no (unknown) (unknown) galcanezumab-gnlm (units (unknown) date) 120 mg/mL 120 mg unknown) SUBCUT QMONTH 11/15/20 11/15/20 (unknown) (no (unknown) (unknown) has been reviewed. (units (unknown) date) Patient case was unknown) discussed regarding antibiotic prophylaxis (unknown) (no (unknown) (unknown) history and help (units (unknown) date) get you set up with unknown) a doctor in the community. (unknown) (no (unknown) (unknown) household members: (units (unknown) date) spouse and children unknown) (unknown) (no (unknown) (unknown) . (units (unkno wn) date) unknown) (unknown) (no (unknown) (unknown) hydrocodone 5 (units ( unknown) date) mg-acetaminophen unknown) 325 1 tab PO Q8H PRN pain #7 tabs 02/17/21 (unknown) (no (unknown) (unknown) imaging (e.g. CT, (units (unknown) date) MRI or bone scan) unknown) should be considered. (unknown) (no (unknown) (unknown) intact, cap refill (units (unknown) date) <2 sec. unknown) (unknown) (no (unknown) (unknown) is currently (units (u nknown) date) , unknown) prescription for doxycycline and clindamycin with shared (unknown) (no (unknown) (unknown) latex [LATEX] (units ( unknown) date) Allergy Unknown unknown) Verified 01/14/22 11:00 (unknown) (no (unknown) (unknown) levofloxacin [From (units (unknown) date) LEVAQUIN] Allergy unknown) Unknown Verified 01/14/22 11:00 (unknown) (no (unknown) (unknown) lisdexamfetamine (units (unknown) date) 60 mg capsule 60 mg unknown) PO DAILY 01/14/19 01/14/19 (unknown) (no (unknown) (unknown) lisdexamfetamine (units (unknown) date) 70 mg capsule 70 mg unknown) PO QAM 03/04/19 11/15/20 (unknown) (no (unknown) (unknown) mcg (50,000 unit) (units (unknown) date) capsule unknown) (unknown) (no (unknown) (unknown) methylphenidate (units (unknown) date) HCl 36 mg 36 mg PO unknown) DAILY 01/14/19 01/14/19 (unknown) (no (unknown) (unknown) metoclopramide (units (unknown) date) [From Reglan] unknown) AdvReac Verified 01/14/22 11:00 (unknown) (no (unknown) (unknown) mg tablet (units (unkn own) date) unknown) (unknown) (no (unknown) (unknown) needed. For any (units (unknown) date) worsening symptoms unknown) that include difficulty breathing chest (unknown) (no (unknown) (unknown) negative for any (units (unknown) date) fractures or tooth unknown) fragments. I have flushed out your wounds (unknown) (no (unknown) (unknown) nifedipine 30 mg (units (unknown) date) tablet,extended 30 unknown) mg PO DAILY 04/27/18 04/27/18 (unknown) (no (unknown) (unknown) normal saline and (units (unknown) date) dressed with a unknown) Band-Aid. Patient is up-to-date with her (unknown) (no (unknown) (unknown) ondansetron (units (un known) date) [ONDANSETRON] unknown) Allergy Unknown Verified 01/14/22 11:00 (unknown) (no (unknown) (unknown) oxycodone [From (units (unknown) date) PERCOCET] Allergy unknown) Unknown Verified 01/14/22 11:00 (unknown) (no (unknown) (unknown) pain, increased (units (unknown) date) wound redness, unknown) swelling, pain or yellow discharge, please see (unknown) (no (unknown) (unknown) pantoprazole 40 mg (units (unknown) date) tablet,delayed 40 unknown) mg PO DAILY 01/14/19 (unknown) (no (unknown) (unknown) pathology (units (unkn own) date) persists, further unknown) assessment with repeat radiographs (7-10 days) or (unknown) (no (unknown) (unknown) point that you (units (unknown) date) cannot drink unknown) fluids, or other new or worsening symptoms. (unknown) (no (unknown) (unknown) prochlorperazine (units (unknown) date) AdvReac Severe unknown) Anxiety Verified 01/14/22 11:00 (unknown) (no (unknown) (unknown) profusely and has (units (unknown) date) since stopped. unknown) Patient has multiple antibiotic allergies. (unknown) (no (unknown) (unknown) promethazine 25 mg (units (unknown) date) rectal 25 mg AR Q6H unknown) PRN Nausea And 04/27/18 11/15/20 (unknown) (no (unknown) (unknown) promethazine 50 (units (unknown) date) mg/mL injection 1 unknown) dose IV PRN PRN Nausea And 04/27/18 04/27/18 (unknown) (no (unknown) (unknown) radiodense foreign (units (unknown) date) unknown) (unknown) (no (unknown) (unknown) release (units (unkno wn) date) unknown) (unknown) (no (unknown) (unknown) release 24 hr (units ( unknown) date) unknown) (unknown) (no (unknown) (unknown) return precautions (units (unknown) date) given. Patient and unknown) spouse were agreeable with course of (unknown) (no (unknown) (unknown) rhonchi. No cough. (units (unknown) date) No increased unknown) respiratory effort. No accessory muscle use. (unknown) (no (unknown) (unknown) sertraline 50 mg (units (unknown) date) tablet (Zoloft) 150 unknown) mg PO QPM 11/23/17 04/27/18 (unknown) (no (unknown) (unknown) solution Vomiting (units (unknown) date) unknown) (unknown) (no (unknown) (unknown) subcutaneous pen (units (unknown) date) injector unknown) (unknown) (no (unknown) (unknown) such as worsening (units (unknown) date) pain, severe unknown) headache, confusion, chest pain, difficulty (unknown) (no (unknown) (unknown) suppository (units (un known) date) Vomiting unknown) (unknown) (no (unknown) (unknown) suspicion for (units ( unknown) date) unknown) (unknown) (no (unknown) (unknown) tablet,extended (units (unknown) date) release 24 hr unknown) (unknown) (no (unknown) (unknown) tetanus. Careful (units (unknown) date) consideration unknown) regarding antibiotic therapy included (unknown) (no (unknown) (unknown) tetanus. Due to (units (unknown) date) your many unknown) antibiotic allergies and your , we have (unknown) (no (unknown) (unknown) today's note if (units (unknown) date) your PCP is in our unknown) system (unknown) (no (unknown) (unknown) vancomycin Allergy (units (unknown) date) Verified 01/14/22 unknown) 11:00 (unknown) (no (unknown) (unknown) venlafaxine 150 mg (units (unknown) date) 150 mg PO DAILY unknown) 01/14/19 11/15/20 (unknown) (no (unknown) (unknown) your family doctor (units (unknown) date) or feel free to unknown) return to the emergency department. Social History date description facility (no date) Never smoked tobacco (finding) [facility] Vital Signs date measurement value units +0000 BMI BMI 37.8 kg/m2 [id number]+0000 height_metric height_metric 162.56 cm [id number]+0000 height_standard height_standard 64 in [id number]+0000 temperature_metric temperature_metric 36.39 C [id number]+0000 temperature_standard temperature_standard 9 7.5 F [id number]+0000 weight_metric weight_metric 45.26 kg [id number]+0000 weight_standard weight_standard 99.79 lb [id number]+0000 BP_diastolic BP_diastolic 69 mm[H g] [id number]+0000 BP_systolic BP_systolic 121 mm[Hg] [id number]+0000 heart_rate heart_rate 80 /min [id number]+0000 respiration_rate respiration_rate 24 /min
[2022-03-01] MEDS ORDERED: KETOROLAC 15 MG/ML VIAL IVP STA (13:41)
[2022-03-01] MEDS ORDERED: HYDROmorphone 1 MG/ML CARPUJECT IVP STA ×4 (13:41→18:24)
[2022-03-01] MEDS ORDERED: PROCHLORPERAZINE 10 MG/2 ML VIAL IVP STA (13:42)
[2022-03-01] MEDS ORDERED: SODIUM CHLORIDE 0.9% 1,000 ML IV STA (13:43)
[2022-03-01 14:13] LABS: BASOPHILS % (AUTO) 0.2 %; EOSINOPHILS # (AUTO) 0.1 10^3/uL (0.0-0.7); EOSINOPHILS % (AUTO) 2.6 %; HCT - HEMATOCRIT 34.5 % (37.0-47.0); HGB - HEMOGLOBIN 11.6 g/dL (12.0-16.0); LYMPHOCYTES # (AUTO) 1.5 10^3/uL (1.5-3.5); LYMPHOCYTES % (AUTO) 31.2 %; MEAN CORPUSCULAR HEMOGLOBIN 29.7 pg (27.0-31.0); MEAN CORPUSCULAR HGB CONC 33.6 g/dL (32.0-36.0); MEAN CORPUSCULAR VOLUME 88.5 fL (81.0-99.0); MEAN PLATELET VOLUME 9.7 fL (7.9-10.8); MONOCYTES # (AUTO) 0.3 10^3/uL (0.0-1.0); MONOCYTES % (AUTO) 6.1 %; NEUTROPHILS # (AUTO) 2.9 10^3/uL (1.5-6.6); NEUTROPHILS % (AUTO) 58.7 %; PLT - PLATELET COUNT 252 10^3/uL (130-450); RED CELL DISTRIBUTION WIDTH 13.6 % (12.0-15.0); WHITE BLOOD COUNT 4.9 x10^3/uL (4.8-10.8)
[2022-03-01] MEDS ORDERED: PROMETHAZINE INJ 25 MG in SODIUM CHLORIDE 0.9% 50 ML IV STA (14:16)
[2022-03-01 14:28] LABS: ALBUMIN 2.7 g/dL (3.2-5.5); ALBUMIN/GLOBULIN RATIO 0.8 (1.0-2.2); BILIRUBIN,TOTAL 0.6 mg/dL (0.2-1.0); CALCIUM 8.6 mg/dL (8.5-10.3); CREATININE 0.5 mg/dL (0.4-1.0); POTASSIUM 3.9 mmol/L (3.5-5.0); TOTAL PROTEIN 6.2 g/dL (6.7-8.2)
[2022-03-01] MEDS ORDERED: LABETALOL 20 MG/4 ML SYRINGE IVP STA (14:40)
[2022-03-01 15:02] LABS: BILIRUBIN,URINE NEGATIVE (NEGATIVE); GLUCOSE, URINE (UA) NEGATIVE (NEGATIVE); KETONES,URINE (UA) NEGATIVE (NEGATIVE); LEUKOCYTE ESTERASE, URINE NEGATIVE (NEGATIVE); NITRITE,URINE NEGATIVE (NEGATIVE); OCCULT BLOOD,URINE SMALL (NEGATIVE); PH,URINE 6.5 PH (5.0-7.5); PROTEIN,URINE NEGATIVE (NEGATIVE); UROBILINOGEN,URINE 0.2 (NORMAL) E.U./dL (NORMAL)
[2022-03-01 15:04] LABS: CLARITY,URINE HAZY (CLEAR)
[2022-03-01 15:19] LABS: BACTERIA,URINE Few /HPF (None Seen); SQUAMOUS EPITHELIAL CELL,UR FEW Squamous (<= Few); WBC,URINE 0-3 /HPF (0-5)
--- NOTE | 2022-03-01 15:44 | CT Report ---
PROCEDURE: Abdomen/Pelvis WO INDICATIONS: abrupt right lower abd pain today TECHNIQUE: Noncontrast 5 mm thick sections acquired from the diaphragms to the symphysis. 5 mm coronal and sagi ttal reformats were then performed. For radiation dose reduction, the following was used: automated exposure control, adjustment of mA and/or kV according to patient size. COMPARISON: 10/19/1979 FINDINGS: Image quality: Excellent. ABDOMEN: Lung bases: Lung bases are clear. Heart size is normal. Mammoplasty implants are incidentally note d. Solid organs: Liver and spleen are normal in size. Gallbladder has been removed. No abnormalities o f the colon is associated that can be seen. Pancreas is normal in contours. No adrenal nodules. Ki dneys are normal in size, without hydronephrosis or nephrolithiasis. Peritoneum and bowel: Unenhanced bowel loops demonstrate normal wall thickness and caliber. No free fluid or air. Clips are seen. Nodes and vessels: No retroperitoneal or mesenteric adenopathy by size criteria. Aorta and inferior vena cava are normal in caliber. Miscellaneous: No ventral hernias. Postoperative changes in the anterior abdominal wall can be seen , with calcification. PELVIS: Genitourinary: Bladder wall thickness is normal. An enlarged uterus is seen, which measures greater than 17 cm in length. The endometrial stripe is abnormally thickened at greater than 2 cm. Gas can b e seen within the endometrial stripe at the uterine fundus. Miscellaneous: No inguinal hernias or adenopathy. Bones: No suspicious bony lesions. No vertebral body compression fractures. IMPRESSION: Abnormally enlarged uterus, with a thickened endometrial stripe. There is gas seen at the uterine fun dus. Please consider endometritis. If clinically appropriate, please consider a follow-up pelvic ultr asound for further evaluation. Status post hysterectomy, without a cause of right upper quadrant pain identified. Incidental note is made of: Mammaplasty implants Appendectomy Postoperative change of the anterior abdominal wall, with calcification Reviewed by: Serafin Barnhart MD on 03/01/2022 2:43 PM [facility] Approved by: Serafin Barnhart MD on 03/01/2022 2:43 PM [facility] Station ID: [id number]
[2022-03-01] MEDS ORDERED: hydrALAZINE INJ 20 MG/ML VIAL IVP STA (16:14)
--- NOTE | 2022-03-01 17:48 | PROVIDER PROGRESS NOTE ---
Subjective - Prog Note Date Prog Note Date: 03/01/22 Prog Note Time: 17:59 - Subjective Pt reports feeling: No change Subjective: This 37-year-old 8 para 6 ( 4 days ) came to the emergency room because of sudden onset of right lower quadrant pain which started this morning. She had a history of multiple premature deliveries in the past and she was a seen by doctors in [place] by [facility]. She developed cholestasis during her . She did not have severe preeclampsia with her last but not at this time. She came to the emergency room on February 13 for possible ruptured membrane at 32 weeks but the test was negative and she was advised to be back to her OB provider the following Thursday morning. She started her labor pain on last Thursday and she delivered baby on Thursday afternoon. She and her states that that was a very difficult labor and delivery compared to her previous experience. She states that she did have a hemorrhage and she was to receive a shot for that and she was discharged the following day. She continued to have a some vaginal bleeding pain started earlier this morning. She had a history of a previous appendectomy and cholecystectomy and also she had a abdominal plastic surgery in the past. CT scan at the emergency room rule out stones and her blood pressure was elevated at the beginning but came down and was one of them was 136/77. She did respond to pain medication but pain never been subsided yet. CT showed p ossible endometritis with the enlarged uterus and transvaginal ultrasound is ordered to rule out remained placental tissue. She has a quite marked tenderness on the right lower quadrant. Her AST and ALT are quite elevated and most likely related to cholestasis. Bile acid was ordered. Pelvic examination with a speculum revealed some bleeding through the os and the rest were not conclusive due to tenderness. The treatment will be depends on the ultrasound finding. Possibility of curettage or overnight observation will be considered. Objective - Vital Signs/Intake & Output Vital Signs: Vital Signs x48h Temp Pulse Resp BP Pulse Ox 03/01/22 17:10 88 18 145/91 H 94 03/01/22 16:43 84 22 154/96 H 97 03/01/22 16:00 77 17 159/109 H 94 03/01/22 15:41 81 27 H 168/106 H 93 03/01/22 15:00 80 15 157/84 H 95 03/01/22 14:58 77 20 163/99 H 95 03/01/22 14:10 80 14 147/77 H 96 03/01/22 13:40 86 24 132/71 H 95 03/01/22 13:33 98.8 F 85 16 140/82 H 97 Intake & Output: Intake & Output 02/26/22 02/27/22 02/28/22 03/01/22 23:59 23:59 23:59 23:59 Intake Total 1051 Balance 1051 - Lab Results Fish Bones: 03/01/22 14:03 03/01/22 14:03 Other Labs: Lab Results x24hrs 03/01/22 03/01/22 03/01/22 Range/Units 14:55 14:03 14:03 WBC 4.9 (4.8-10.8) x10^3/uL RBC 3.90 L (4.20-5.40) 10^6/uL Hgb 11.6 L (12.0-16.0) g/dL Hct 34.5 L (37.0-47.0) % MCV 88.5 (81.0-99.0) fL MCH 29.7 (27.0-31.0) pg MCHC 33.6 (32.0-36.0) g/dL RDW 13.6 (12.0-15.0) % Plt Count 252 (130-450) 10^3/uL MPV 9.7 (7.9-10.8) fL Neut # (Auto) 2.9 (1.5-6.6) 10^3/uL Lymph # (Auto) 1.5 (1.5-3.5) 10^3/uL [place] # (Auto) 0.3 (0.0-1.0) 10^3/uL Eos # (Auto) 0.1 (0.0-0.7) 10^3/uL Baso # (Auto) 0.0 (0.0-0.1) 10^3/uL Absolute Nucleated RBC 0.00 x10^3/uL Nucleated RBC % 0.0 /100WBC Sodium 141 (135-145) mmol/L Potassium 3.9 (3.5-5.0) mmol/L Chloride 108 (101-111) mmol/L Carbon Dioxide 23 (21-32) mmol/L Anion Gap 10.0 (6-13) BUN 10 (6-20) mg/dL Creatinine 0.5 (0.4-1.0) mg/dL Estimated GFR (MDRD) 139 (>89) Glucose 120 H (70-100) mg/dL Calcium 8.6 (8.5-10.3) mg/dL Total Bilirubin 0.6 (0.2-1.0) mg/dL AST 676 H (10-42) IU/L ALT 257 H (10-60) IU/L Alkaline Phosphatase 130 H (42-121) IU/L Total Protein 6.2 L (6.7-8.2) g/dL Albumin 2.7 L (3.2-5.5) g/dL Globulin 3.5 (2.1-4.2) g/dL Albumin/Globulin Ratio 0.8 L (1.0-2.2) Lipase 46 (22-51) U/L Urine Color YELLOW Urine Clarity HAZY (CLEAR) Urine pH 6.5 (5.0-7.5) PH Ur Specific [place] 1.020 (1.002-1.030) Urine Protein NEGATIVE (NEGATIVE) mg/dL Urine Glucose (UA) NEGATIVE (NEGATIVE) mg/dL Urine Ketones NEGATIVE (NEGATIVE) mg/dL Urine Occult Blood SMALL H (NEGATIVE) Urine Nitrite NEGATIVE (NEGATIVE) Urine Bilirubin NEGATIVE (NEGATIVE) Urine Urobilinogen 0.2 (NORMAL) (NORMAL) E.U./dL Ur Leukocyte Esterase NEGATIVE (NEGATIVE) Urine RBC 6-10 H (0-5) /HPF Urine WBC 0-3 (0-5) /HPF Ur Squamous Epith Cells FEW Squamous (<= Few) Urine Bacteria Few (None Seen) /HPF Ur Microscopic Review INDICATED Urine Culture Comments NOT INDICATED
--- NOTE | 2022-03-01 18:30 | ED Physician Documentation ---
ED Addendum - Addendum Addendum: 03/01/22 18:[address] Castañeda at shift change. Reportedly the REVIEW RN was waiting for her ultrasound to be done. I have not reviewed the results, but reportedly he looks at them and plans to take her to the operating room for a D&C. Disposition: Transferred to operating room Condition: Stable Diagnosis: 1. Elevated blood pressure 2. abdominal pain 3. Presumed endometritis
[2022-03-01] MEDS ORDERED: MORPHINE 2 MG/ML CARPUJECT IVP PRN (18:49)
[2022-03-01] MEDS ORDERED: fentaNYL 100 MCG/2 ML VIAL IVP PRN (18:49)
[2022-03-01] MEDS ORDERED: HYDROmorphone 0.5 MG/0.5 ML SYRINGE IVP PRN (18:49)
[2022-03-01] MEDS ORDERED: NALOXONE 0.4 MG/ML VIAL IVP PRN (18:49)
[2022-03-01] MEDS ORDERED: ATROPINE ABBOJECT 1 MG/10 ML SYRINGE IVP PRN (18:49)
--- NOTE | 2022-03-01 18:55 | ANESTHESIA ---
Pre-Anesthesia VS, & Labs - Diagnosis possible endometritis, rlq pain - Procedure D&C Vital Signs: Temp Pulse Resp BP Pulse Ox O2 Flow Rate 37.3 C 85 19 157/94 H 98 03/01/22 18:00 03/01/22 18:30 03/01/22 18:30 03/01/22 18:30 03/01/22 18:30 Height: 5 ft 4 in Weight (kg): 97.522 kg Body Mass Index: 36.8 BMI Classification: Obese - NPO >8 hours - Is Patient ?: No - Lab Results Current Lab Results: Laboratory Tests 03/01/22 14:03: Sodium 141, Potassium 3.9, Chloride 108, Carbon Dioxide 23, Anion Gap 10.0, BUN 10, Creatinine 0.5, Estimated GFR (MDRD) 139, Glucose 120 H, Calcium 8.6, Total Bilirubin 0.6, AST 676 H, ALT 257 H, Alkaline Phosphatase 130 H, Total Protein 6.2 L, Albumin 2.7 L, Globulin 3.5, Albumin/Globulin Ratio 0.8 L, Lipase 46 03/01/22 14:03: WBC 4.9, RBC 3.90 L, Hgb 11.6 L, Hct 34.5 L, MCV 88.5, MCH 29.7, MCHC 33.6, RDW 13.6, Plt Count 252, MPV 9.7, Neut # (Auto) 2.9, Lymph # (Auto) 1.5, [place] # (Auto) 0.3, Eos # (Auto) 0.1, Baso # (Auto) 0.0, Absolute Nucleated RBC 0.00, Nucleated RBC % 0.0 Lab results reviewed: Yes Fish Bones: 03/01/22 14:03 03/01/22 14:03 Home Medications and Allergies Home Medications: Ambulatory Orders Cetirizine HCl [Zyrtec] 10 mg ORAL DAILY 03/01/22 Fluoxetine HCl [Prozac] 20 mg PO DAILY 03/01/22 HYDROcod/ACETAM 5/325 [[place] 5/325] 1 tablet PO Q6H PRN 03/01/22 Active Medications Atropine Sulfate (Atropine Abboject 1 Mg/10 Ml Syringe) 0.5 mg IVP Q5M PRN PRN Reason: Bradycardia Stop: 03/02/22 18:49 Fentanyl (Fentanyl 100 Mcg/2 Ml Vial) 25 - 50 mcg IVP Q5M PRN PRN Reason: BREAKTHROUGH PAIN (2nd Choice) Stop: 03/02/22 18:49 Hydromorphone HCl (Hydromorphone 0.5 Mg/0.5 Ml Syringe) 0.2 - 0.6 mg IVP Q5M PRN PRN Reason: PAIN (First Choice) Stop: 03/02/22 18:49 Lactated Ringer's (Lr) 1,000 mls @ 100 mls/hr IV .Q10H HESHAM Stop: 03/02/22 04:59 Morphine Sulfate (Morphine 2 Mg/Ml Carpuject) 2 - 4 mg IVP Q5M PRN PRN Reason: PAIN (3rd Choice) Stop: 03/02/22 18:49 Naloxone HCl (Naloxone 0.4 Mg/Ml Vial) 0.1 mg IVP Q2M PRN PRN Reason: RESP RATE <8 Stop: 03/02/22 18:49 Labetalol [Trandate] 200 mg PO BID 11/23/19 Venlafaxine ER [Effexor ER] 75 mg PO DAILY 11/23/19 Cetirizine HCl [Zyrtec] 10 mg ORAL DAILY 03/01/22 Fluoxetine HCl [Prozac] 20 mg PO DAILY 03/01/22 HYDROcod/ACETAM 5/325 [[place] 5/325] 1 tablet PO Q6H PRN 03/01/22 Allergies/Adverse Reactions: Allergies Allergy/AdvReac Type Severity Reaction Status Date / Time Penicillins Allergy Severe anaphalaxis Verified 03/01/22 13:32 cephalexin monohydrate * Allergy Mild Rash Verified 03/01/22 13:32 [From Keflex] latex Allergy Mild Rash Verified 03/01/22 13:32 levofloxacin [From Levaquin] Allergy Mild Rash Verified 03/01/22 13:32 ondansetron HCl * Allergy Mild Rash Verified 03/01/22 13:32 [From Zofran (as hydrochloride)] morphine AdvReac Intermediate Anxiety Verified 03/01/22 13:32 oxycodone HCl * AdvReac Mild nausea/vomi Verified 03/01/22 13:32 [From Percocet] ting prochlorperazine AdvReac Unknown Verified 03/01/22 14:10 [From Compazine] Anes History & Medical History - Anesthetic History Anesthesia Complications: reports: No previous complications - Medical History Cardiovascular: reports: Hypertension Pulmonary: reports: None Gastrointestinal: reports: GERD (poorly controlled, daily occurance), Other (Cholestasis) Urinary: reports: None Neuro: reports: Migraines Musculoskeletal: reports: Fibromyalgia Endocrine/Autoimmune: reports: None Blood Disorders: reports: None Skin: reports: None Smoking Status: Never smoker Psychosocial: reports: Depression, Anxiety, Other (PTSD) - Surgical History General: reports: Cholecystectomy, Appendectomy Eyes Ears Nose Throat (EENT): reports: Tonsil/Adenoidectomy Gynecologic: reports: Breast implants Dermatologic: reports: Other Exam General: Alert, Oriented x3, Cooperative, No acute distress Dental: WNL Mouth Openin Fingerbreadth Neck Mobility: Normal Mallampati classification: II Thyromental Distance: 4-6 cm Mental/Cognitive Status: Alert/Oriented X3, Normal for patient Plan Anesthesia Type: General (GETA with RSI) Consent for Procedure(s) Verified and Reviewed: Yes Code Status: Attempt Resuscitation ASA classification: 2-Mild systemic disease Is this case an emergency?: Yes
[2022-03-01] MEDS ORDERED: LACTATED RINGERS 1,000 ML IV SCH ×2 (19:00→21:00)
[2022-03-01] MEDS ORDERED: PROPOFOL 200 MG/20 ML VIAL IVP ONE ×2 (19:01→19:42)
[2022-03-01] MEDS ORDERED: LIDOCAINE-MPF 2% 5 ML VIAL ONE ×2 (19:01→19:42)
[2022-03-01] MEDS ORDERED: fentaNYL 100 MCG/2 ML VIAL ONE ×2 (19:01→19:42)
[2022-03-01] MEDS ORDERED: MIDAZOLAM 2 MG/2 ML VIAL ONE ×2 (19:01→19:42)
[2022-03-01] MEDS ORDERED: SUCCINYLCHOLINE 200 MG/10 ML VIAL ONE ×2 (19:02→19:42)
[2022-03-01] MEDS ORDERED: LIDOCAINE MPF 2%-EPI 1:200000 20 ML VIAL ONE ×2 (19:18→19:42)
[2022-03-01] MEDS ORDERED: BUPIVACAINE 0.5% PF 30 ML VIAL ONE ×2 (19:18→19:42)
[2022-03-01] MEDS ORDERED: metroNIDAZOLE 500 MG/100 ML 500 MG/100 ML BAG ONE (19:20)
[2022-03-01 19:43] LABS: CORONAVIRUS 229E-RESP PCR NOT DETECTED; CORONAVIRUS HKU1-RESP PCR NOT DETECTED; CORONAVIRUS NL63-RESP PCR NOT DETECTED; CORONAVIRUS OC43-RESP PCR NOT DETECTED; HUMAN METAPNEUMOVIRUS NOT DETECTED; INFLUENZA A- RESP PCR PANEL NOT DETECTED; RHINOVIRUS/ENTEROVIRUS NOT DETECTED; SARS-CoV-2 -RESP PCR PANEL NOT DETECTED
[2022-03-01 19:44] LABS: B. PARAPERTUSSIS- RESP PCR PAN NOT DETECTED; B. PERTUSSIS- RESP PCR PANEL NOT DETECTED; C. PNEUMONIAE- RESP PCR PANEL NOT DETECTED; INFLUENZA B - RESP PCR PANEL NOT DETECTED; M. PNEUMONIAE- RESP PCR PANEL NOT DETECTED; PARAINFLUENZA VIRUS 1 NOT DETECTED; PARAINFLUENZA VIRUS 2 NOT DETECTED; PARAINFLUENZA VIRUS 3 NOT DETECTED; PARAINFLUENZA VIRUS 4 NOT DETECTED; RSV- RESP PCR PANEL NOT DETECTED
[2022-03-01] MEDS ORDERED: ACETAMINOPHEN 1,000 MG/100 ML 1,000 MG/100 ML BAG IV ONE (19:49)
[2022-03-01] MEDS ORDERED: DEXAMETHASONE 4 MG/ML VIAL ONE (19:51)
[2022-03-01] MEDS ORDERED: SUGAMMADEX 200 MG/2 ML VIAL IVP ONE (20:06)
[2022-03-01] MEDS ORDERED: LACTATED RINGERS 300 ML IV ONE (20:07)
--- NOTE | 2022-03-01 20:22 | OPERATIVE REPORT ---
Operative Report - General Procedure Date: 03/01/22 Planned Procedure: Dilation and suction curettage Pre-Op Diagnosis: bleeding Procedure Performed: Dilation and suction curettage Post Op Diagnosis: The same - Procedure Note Primary Surgeon: Dr. MORE Anesthesia Technique: General ET tube Pathology: Remaining placental tissue Indications: bleeding Findings: Uterine cavity was measured 14 cm Complications: None - Other Other Information/Narrative: Date of surgery: Surgeon: Dr. MORE Preoperative diagnosis: retained placenta associated with hemorrhage Postoperative diagnosis: The same Procedure performed: Suction dilation and curettage Anesthesia: General Estimated blood loss: Findings: Appearance of external genitalia normal appearance of vagina normal appearance of cervix normal uterine size 14 centemeter mid position mobile no adnexal masses Specimen: placental tissue and endometrial curettings Complications: None Disposition: Stable to PACU Indications for the procedure History: Mrs. Hooper Is a 37 year-old 8 para 6 4 days, Should continue bleed after childbirth. Surgical risks: The patient was informed of the risks and benefits of the procedure. Risks included but were not limited to bleeding, infection, injury to the vulva, vagina, or cervix, and uterine perforation. The patient expressed understanding of the risks involved, all questions were answered, and the patient consented to the procedure. Description of procedure The patient was taken to the operating room where a timeout was performed to confirm correct patient and correct procedure. The patient was given preoperative prophylactic intravenous antibiotics. The patient was given general anesthesia. When the anesthesia was found to be adequate. The patient was then positioned on the operating table in the dorsal lithotomy position with the legs supported using stirrups. The patient was then prepped and draped in the usual sterile fashion. A bimanual exam was performed and the uterus was found to be approximately 12 weeks size mid position. The cervix was noted to be 2 cm dilated. No palpable adnexal mass was noted. Operative technique: A weighted speculum was inserted into the vagina and the cervix was visualized and grasped using the single-tooth tenaculum. The uterus was sounded and found to be 14 centimeter. The cervix then adequately dilated using the Hanks dilator for the introduction of the 12 mm suction.. The suction curette was advanced to the fundus and then suction was applied and the curette was rotated in a circular fashion as the curette was withdrawn. The suction was relieved at the internal os and a curette was again advanced to the fundus. This was repeated 3 times. When no further products were obtained, the suction curette was withdrawn, and a sharp curette was advanced to the fundus. The uterus was curetted in a systematic manner covering all surfaces until a gritty texture was noted throughout. The suction curette was introduced one final time and the uterine cavity was cleared of any remaining products or curettings. The suction curette was then withdrawn and the single-tooth tenaculum was removed from the anterior lip of the cervix. Good hemostasis was noted. The weighted retractor was then removed from the vagina. At the completion of the procedure all needle, sponge, and instrument counts were noted to be correct x2. The patient tolerated the procedure well and was transferred to the recovery room in stable condition.
--- NOTE | 2022-03-01 20:25 | ANESTHESIA POST OP EVALUATION ---
Anesthesia Post Eval - Post Anesthesia Eval Vitals: Last Vital Signs Temp 36.6 C 03/01/22 20:20 Pulse 84 03/01/22 20:20 Resp 12 03/01/22 20:20 BP 144/98 H 03/01/22 20:20 Pulse Ox 97 03/01/22 20:20 O2 Flow Rate CV Function Including HR & BP: Stable Pain Control: Satisfactory Nausea & Vomiting: Negative Mental Status: Patient Participates Respiratory Status: Airway Patent Hydration Status: Satisfactory Anesthesia Complications: None
[2022-03-01] MEDS ORDERED: ONDANSETRON 4 MG/2 ML VIAL IVP PRN (20:35)
[2022-03-01] MEDS ORDERED: oxyCODONE 5 MG TABLET PO PRN (20:35)
--- NOTE | 2022-03-01 20:48 | Ultrasound Report ---
PROCEDURE: Pelvic w/Transvaginal INDICATIONS: bleeding, delivery 02/25/2022, evaluate for retained products of conception TECHNIQUE: Real-time scanning was performed of the pelvic organs, with image documentation. Additional endovagi nal scanning was necessary due to incomplete visualization of the adnexal and endometrial structures by transabdominal scanning. COMPARISON: Noncontrast CT abdomen/pelvis same day.. FINDINGS: Uterus: Uterus is mildly anteverted and moderately enlarged in size at 8.0 x 11.7 x 18.2 cm, expecte d for status. cm. The myometrium is mildly heterogeneous. The endometrium measures 45.3 mm in combined thickness. The endometrial lining is moderately complex with increased vascularity, a nd the appearance may reflect retained products of conception. Ovaries: The right ovary measures 3.3 x 1.3 x 2.1 cm. The left ovary measures 3.0 x 1.5 x 2.6 cm, . The ovaries have a normal sonographic appearance and volume bilaterally. Less than 12 follicles ca n be seen in each ovary. No adnexal masses are seen. Other: No pathologic free abdominal or pelvic fluid. Note is made of what appears to be debris and c lots within the cervical canal. IMPRESSION: Abnormal endometrial lining thickness, with increased vascularity, consistent with retai raissa products of conception. Ovaries bilaterally appear normal, without evidence of ovarian torsion. N o abnormal peritoneal free fluid. Reviewed by: Escobar Kruse MD on 03/01/2022 8:47 PM PDT Approved by: Escobar Kruse MD on 03/01/2022 8:47 PM PDT Station ID: [id number]
[2022-03-01] MEDS ORDERED: ZOLPIDEM 5 MG TABLET PO ONE (21:05)
[2022-03-01] MEDS: PROMETHAZINE INJ 25 MG in SODIUM CHLORIDE 0.9% 50 ML IV PRN (21:15)
[2022-03-01 21:18] LABS: BASOPHILS % (AUTO) 0.5 %; EOSINOPHILS # (AUTO) 0.1 10^3/uL (0.0-0.7); HCT - HEMATOCRIT 33.1 % (37.0-47.0); HGB - HEMOGLOBIN 11.1 g/dL (12.0-16.0); LYMPHOCYTES # (AUTO) 1.3 10^3/uL (1.5-3.5); LYMPHOCYTES % (AUTO) 20.7 %; MEAN CORPUSCULAR HEMOGLOBIN 29.8 pg (27.0-31.0); MEAN CORPUSCULAR HGB CONC 33.5 g/dL (32.0-36.0); MEAN CORPUSCULAR VOLUME 88.7 fL (81.0-99.0); MEAN PLATELET VOLUME 9.6 fL (7.9-10.8); MONOCYTES # (AUTO) 0.3 10^3/uL (0.0-1.0); MONOCYTES % (AUTO) 4.3 %; NEUTROPHILS # (AUTO) 4.3 10^3/uL (1.5-6.6); NEUTROPHILS % (AUTO) 71.2 %; PLT - PLATELET COUNT 251 10^3/uL (130-450); RED BLOOD COUNT 3.73 10^6/uL (4.20-5.40); RED CELL DISTRIBUTION WIDTH 13.9 % (12.0-15.0); WHITE BLOOD COUNT 6.1 x10^3/uL (4.8-10.8)
[2022-03-01] MEDS: LABETALOL 100 MG TABLET PO SCH (21:30)
[2022-03-01 21:44] LABS: CREATININE 0.4 mg/dL (0.4-1.0); URIC ACID 5.2 mg/dL (2.6-7.2)
[2022-03-01] MEDS ORDERED: ACETAMINOPHEN 500 MG TABLET PO PRN (22:03)
[2022-03-01] MEDS: IBUPROFEN 600 MG TABLET PO SCH (23:56)
[2022-03-02] MEDS: HYDROcod/ACETAM 5/325 MG TABLET PO PRN ×2 (03:50→09:11)
[2022-03-02 03:57] LABS: CREATININE,URINE 51.1 mg/dL; PROTEIN/CREATININE RATIO,URINE 0.2 (<=0.2)
[2022-03-02] MEDS: IBUPROFEN 600 MG TABLET PO SCH (06:10)
[2022-03-02] MEDS: PROMETHAZINE INJ 25 MG in SODIUM CHLORIDE 0.9% 50 ML IV PRN (07:37)
--- NOTE | 2022-03-02 08:31 | PROVIDER PROGRESS NOTE ---
Subjective - Prog Note Date Prog Note Date: 03/02/22 Prog Note Time: 08:31 - Subjective Pt reports feeling: Improved (She slept better during the night and her blood pressure become normotensive and she did not require too many pain medication. She is still pumping her breast for the baby and abdomen soft and bleeding subsided. She wants to be discharged and instruction was given.) Subjective: Her pain medication will be E prescribed to her pharmacy. She will be required to be checked for 2 weeks follow-up at the clinic here or at the [place]. Objective - Vital Signs/Intake & Output Vital Signs: Vital Signs x48h Temp Pulse Resp BP Pulse Ox 03/02/22 07:23 98.4 F 74 16 136/88 H 96 03/02/22 03:51 88 136/81 H 98 03/02/22 03:35 98.2 F 76 18 147/95 H 95 Intake & Output: Intake & Output 02/27/22 02/28/22 03/01/22 03/02/22 23:59 23:59 23:59 23:59 Intake Total 1102 1701 Output Total 600 1600 Balance 502 101 - Lab Results Fish Bones: 03/01/22 21:11 03/01/22 21:11 Other Labs: Lab Results x24hrs 03/02/22 03/01/22 03/01/22 Range/Units 03:30 21:11 21:11 WBC 6.1 (4.8-10.8) x10^3/uL RBC 3.73 L (4.20-5.40) 10^6/uL Hgb 11.1 L (12.0-16.0) g/dL Hct 33.1 L (37.0-47.0) % MCV 88.7 (81.0-99.0) fL MCH 29.8 (27.0-31.0) pg MCHC 33.5 (32.0-36.0) g/dL RDW 13.9 (12.0-15.0) % Plt Count 251 (130-450) 10^3/uL MPV 9.6 (7.9-10.8) fL Neut # (Auto) 4.3 (1.5-6.6) 10^3/uL Lymph # (Auto) 1.3 L (1.5-3.5) 10^3/uL [place] # (Auto) 0.3 (0.0-1.0) 10^3/uL Eos # (Auto) 0.1 (0.0-0.7) 10^3/uL Baso # (Auto) 0.0 (0.0-0.1) 10^3/uL Absolute Nucleated RBC 0.00 x10^3/uL Nucleated RBC % 0.0 /100WBC Sodium (135-145) mmol/L Potassium (3.5-5.0) mmol/L Chloride (101-111) mmol/L Carbon Dioxide (21-32) mmol/L Anion Gap (6-13) BUN (6-20) mg/dL Creatinine 0.4 (0.4-1.0) mg/dL Estimated GFR (MDRD) 180 (>89) Glucose (70-100) mg/dL Uric Acid 5.2 (2.6-7.2) mg/dL Calcium (8.5-10.3) mg/dL Total Bilirubin (0.2-1.0) mg/dL AST 571 H (10-42) IU/L ALT 250 H (10-60) IU/L Alkaline Phosphatase (42-121) IU/L Total Protein (6.7-8.2) g/dL Albumin (3.2-5.5) g/dL Globulin (2.1-4.2) g/dL Albumin/Globulin Ratio (1.0-2.2) Lipase (22-51) U/L Urine Color Urine Clarity (CLEAR) Urine pH (5.0-7.5) PH Ur Specific [place] (1.002-1.030) Urine Protein (NEGATIVE) mg/dL Urine Glucose (UA) (NEGATIVE) mg/dL Urine Ketones (NEGATIVE) mg/dL Urine Occult Blood (NEGATIVE) Urine Nitrite (NEGATIVE) Urine Bilirubin (NEGATIVE) Urine Urobilinogen (NORMAL) E.U./dL Ur Leukocyte Esterase (NEGATIVE) Urine RBC (0-5) /HPF Urine WBC (0-5) /HPF Ur Squamous Epith Cells (<= Few) Urine Bacteria (None Seen) /HPF Ur Microscopic Review Urine Culture Comments Urine Creatinine 51.1 mg/dL Ur Total Protein Timed 9 mg/dL Protein/Creatinin Ratio 0.2 (<=0.2) Nasal Adenovirus (PCR) Nasal B. parapertussis DNA (PCR) Nasal Coronavir 229E PCR Nasal Coronavir HKU1 PCR Nasal Coronavir NL63 PCR Nasal Coronavir OC43 PCR Nasal Enterovir/Rhinovir PCR Nasal Influenza B PCR Nasal Influenza A PCR Nasal Parainfluen 1 PCR Nasal Parainfluen 2 PCR Nasal Parainfluen 3 PCR Nasal Parainfluen 4 PCR Nasal RSV (PCR) Nasal B.pertussis DNA PCR Nasal C.pneumoniae (PCR) Serge Human Metapneumo PCR Nasal M.pneumoniae (PCR) Nasal SARS-CoV-2 (PCR) Blood Type Antibody Screen 03/01/22 03/01/22 03/01/22 Range/Units 18:56 18:35 14:55 WBC (4.8-10.8) x10^3/uL RBC (4.20-5.40) 10^6/uL Hgb (12.0-16.0) g/dL Hct (37.0-47.0) % MCV (81.0-99.0) fL MCH (27.0-31.0) pg MCHC (32.0-36.0) g/dL RDW (12.0-15.0) % Plt Count (130-450) 10^3/uL MPV (7.9-10.8) fL Neut # (Auto) (1.5-6.6) 10^3/uL Lymph # (Auto) (1.5-3.5) 10^3/uL [place] # (Auto) (0.0-1.0) 10^3/uL Eos # (Auto) (0.0-0.7) 10^3/uL Baso # (Auto) (0.0-0.1) 10^3/uL Absolute Nucleated RBC x10^3/uL Nucleated RBC % /100WBC Sodium (135-145) mmol/L Potassium (3.5-5.0) mmol/L Chloride (101-111) mmol/L Carbon Dioxide (21-32) mmol/L Anion Gap (6-13) BUN (6-20) mg/dL Creatinine (0.4-1.0) mg/dL Estimated GFR (MDRD) (>89) Glucose (70-100) mg/dL Uric Acid (2.6-7.2) mg/dL Calcium (8.5-10.3) mg/dL Total Bilirubin (0.2-1.0) mg/dL AST (10-42) IU/L ALT (10-60) IU/L Alkaline Phosphatase (42-121) IU/L Total Protein (6.7-8.2) g/dL Albumin (3.2-5.5) g/dL Globulin (2.1-4.2) g/dL Albumin/Globulin Ratio (1.0-2.2) Lipase (22-51) U/L Urine Color YELLOW Urine Clarity HAZY (CLEAR) Urine pH 6.5 (5.0-7.5) PH Ur Specific [place] 1.020 (1.002-1.030) Urine Protein NEGATIVE (NEGATIVE) mg/dL Urine Glucose (UA) NEGATIVE (NEGATIVE) mg/dL Urine Ketones NEGATIVE (NEGATIVE) mg/dL Urine Occult Blood SMALL H (NEGATIVE) Urine Nitrite NEGATIVE (NEGATIVE) Urine Bilirubin NEGATIVE (NEGATIVE) Urine Urobilinogen 0.2 (NORMAL) (NORMAL) E.U./dL Ur Leukocyte Esterase NEGATIVE (NEGATIVE) Urine RBC 6-10 H (0-5) /HPF Urine WBC 0-3 (0-5) /HPF Ur Squamous Epith Cells FEW Squamous (<= Few) Urine Bacteria Few (None Seen) /HPF Ur Microscopic Review INDICATED Urine Culture Comments NOT INDICATED Urine Creatinine mg/dL Ur Total Protein Timed mg/dL Protein/Creatinin Ratio (<=0.2) Nasal Adenovirus (PCR) NOT DETECTED Nasal B. parapertussis DNA (PCR) NOT DETECTED Nasal Coronavir 229E PCR NOT DETECTED Nasal Coronavir HKU1 PCR NOT DETECTED Nasal Coronavir NL63 PCR NOT DETECTED Nasal Coronavir OC43 PCR NOT DETECTED Nasal Enterovir/Rhinovir PCR NOT DETECTED Nasal Influenza B PCR NOT DETECTED Nasal Influenza A PCR NOT DETECTED Nasal Parainfluen 1 PCR NOT DETECTED Nasal Parainfluen 2 PCR NOT DETECTED Nasal Parainfluen 3 PCR NOT DETECTED Nasal Parainfluen 4 PCR NOT DETECTED Nasal RSV (PCR) NOT DETECTED Nasal B.pertussis DNA PCR NOT DETECTED Nasal C.pneumoniae (PCR) NOT DETECTED Serge Human Metapneumo PCR NOT DETECTED Nasal M.pneumoniae (PCR) NOT DETECTED Nasal SARS-CoV-2 (PCR) NOT DETECTED Blood Type O POSITIVE Antibody Screen NEGATIVE 03/01/22 03/01/22 Range/Units 14:03 14:03 WBC 4.9 (4.8-10.8) x10^3/uL RBC 3.90 L (4.20-5.40) 10^6/uL Hgb 11.6 L (12.0-16.0) g/dL Hct 34.5 L (37.0-47.0) % MCV 88.5 (81.0-99.0) fL MCH 29.7 (27.0-31.0) pg MCHC 33.6 (32.0-36.0) g/dL RDW 13.6 (12.0-15.0) % Plt Count 252 (130-450) 10^3/uL MPV 9.7 (7.9-10.8) fL Neut # (Auto) 2.9 (1.5-6.6) 10^3/uL Lymph # (Auto) 1.5 (1.5-3.5) 10^3/uL [place] # (Auto) 0.3 (0.0-1.0) 10^3/uL Eos # (Auto) 0.1 (0.0-0.7) 10^3/uL Baso # (Auto) 0.0 (0.0-0.1) 10^3/uL Absolute Nucleated RBC 0.00 x10^3/uL Nucleated RBC % 0.0 /100WBC Sodium 141 (135-145) mmol/L Potassium 3.9 (3.5-5.0) mmol/L Chloride 108 (101-111) mmol/L Carbon Dioxide 23 (21-32) mmol/L Anion Gap 10.0 (6-13) BUN 10 (6-20) mg/dL Creatinine 0.5 (0.4-1.0) mg/dL Estimated GFR (MDRD) 139 (>89) Glucose 120 H (70-100) mg/dL Uric Acid (2.6-7.2) mg/dL Calcium 8.6 (8.5-10.3) mg/dL Total Bilirubin 0.6 (0.2-1.0) mg/dL AST 676 H (10-42) IU/L ALT 257 H (10-60) IU/L Alkaline Phosphatase 130 H (42-121) IU/L Total Protein 6.2 L (6.7-8.2) g/dL Albumin 2.7 L (3.2-5.5) g/dL Globulin 3.5 (2.1-4.2) g/dL Albumin/Globulin Ratio 0.8 L (1.0-2.2) Lipase 46 (22-51) U/L Urine Color Urine Clarity (CLEAR) Urine pH (5.0-7.5) PH Ur Specific [place] (1.002-1.030) Urine Protein (NEGATIVE) mg/dL Urine Glucose (UA) (NEGATIVE) mg/dL Urine Ketones (NEGATIVE) mg/dL Urine Occult Blood (NEGATIVE) Urine Nitrite (NEGATIVE) Urine Bilirubin (NEGATIVE) Urine Urobilinogen (NORMAL) E.U./dL Ur Leukocyte Esterase (NEGATIVE) Urine RBC (0-5) /HPF Urine WBC (0-5) /HPF Ur Squamous Epith Cells (<= Few) Urine Bacteria (None Seen) /HPF Ur Microscopic Review Urine Culture Comments Urine Creatinine mg/dL Ur Total Protein Timed mg/dL Protein/Creatinin Ratio (<=0.2) Nasal Adenovirus (PCR) Nasal B. parapertussis DNA (PCR) Nasal Coronavir 229E PCR Nasal Coronavir HKU1 PCR Nasal Coronavir NL63 PCR Nasal Coronavir OC43 PCR Nasal Enterovir/Rhinovir PCR Nasal Influenza B PCR Nasal Influenza A PCR Nasal Parainfluen 1 PCR Nasal Parainfluen 2 PCR Nasal Parainfluen 3 PCR Nasal Parainfluen 4 PCR Nasal RSV (PCR) Nasal B.pertussis DNA PCR Nasal C.pneumoniae (PCR) Serge Human Metapneumo PCR Nasal M.pneumoniae (PCR) Nasal SARS-CoV-2 (PCR) Blood Type Antibody Screen
[2022-03-02] MEDS: LABETALOL 100 MG TABLET PO SCH (08:49)
--- NOTE | 2022-03-02 08:50 | Discharge Plan ---
Discharge Plan Problem Reviewed?: Yes Disposition: Home, Self Care Condition: Stable Diet: Regular Activity Restrictions: No Restrictions Shower Restrictions: No Driving Restrictions: No Weight Bearin lbs No Smoking: If you smoke, Please STOP! Call for help. Follow-up with: ELIE MOLINA DO [Primary Care Provider] -
--- NOTE | 2022-03-02 08:52 | DISCHARGE SUMMARY ---
Discharge Summary Admit Date: 03/01/22 Discharge Date: 03/02/22 Discharging Provider: Code Status: Attempt Resuscitation Condition at Discharge: Stable Discharge Disposition: 01 Home, Self Care - DIAGNOSES Admission Diagnoses: bleeding Discharge Diagnoses with Status of Each Condition: The same and stable condition - HPI History of Present Illness: Please see the admission note - HOSPITAL COURSE Hospital Course: She remained stable and bleeding subsided overnight and her vital signs were normal to - ALLERGIES Allergies/Adverse Reactions: Allergies Allergy/AdvReac Type Severity Reaction Status Date / Time Penicillins Allergy Severe anaphalaxis Verified 03/01/22 13:32 cephalexin monohydrate * Allergy Mild Rash Verified 03/01/22 13:32 [From Keflex] latex Allergy Mild Rash Verified 03/01/22 13:32 levofloxacin [From Levaquin] Allergy Mild Rash Verified 03/01/22 13:32 ondansetron HCl * Allergy Mild Rash Verified 03/01/22 13:32 [From Zofran (as hydrochloride)] morphine AdvReac Intermediate Anxiety Verified 03/01/22 13:32 oxycodone HCl * AdvReac Mild nausea/vomi Verified 03/01/22 13:32 [From Percocet] ting prochlorperazine AdvReac Unknown Verified 03/01/22 14:10 [From Compazine] - MEDICATIONS Home Medications: Ambulatory Orders Medication Instructions Recorded Confirmed Promethazine [Phenergan] 25 - 50 mg PO Q6H PRN #10 tab 10/08/17 03/01/22 No122/Iron/Folic Acid 1 each PO DAILY #30 tablet 11/05/17 [ Multi Tablet] Labetalol [Trandate] 200 mg PO BID 11/23/19 03/01/22 Venlafaxine ER [Effexor ER] 75 mg PO DAILY 11/23/19 03/01/22 Cetirizine HCl [Zyrtec] 10 mg ORAL DAILY 03/01/22 03/01/22 Fluoxetine HCl [Prozac] 20 mg PO DAILY 03/01/22 03/01/22 HYDROcod/ACETAM 5/325 [[place] 5/325] 1 tablet PO Q6H PRN 03/01/22 03/01/22 - LABS Result Diagrams: 03/01/22 21:11 03/01/22 21:11 - DIAGNOSTIC IMAGING Diagnostic Imaging Results: Final report reviewed - QUALITY (Female Hip Fx Only) Was patient sent home on osteoporosis medication?: Yes - FOLLOW UP Follow Up: 2 weeks either clinic here or at the [place] - TIME SPENT Time Spent in Discharge (Minutes): 10
[2022-03-02] MEDS ORDERED: ROCURONIUM 50 MG/5 ML VIAL ONE (08:57)
[2022-03-02 09:17] VITALS: BP 140/85
--- NOTE | 2022-03-06 09:24 | Labor Flowsheet ---
Labor Flowsheet Datetime Report Generated by CPN: 03/06/2022 09:24 Datetime: 02/13/2022 10:11 VITAL SIGNS NBP Sys/Felisa/Mean (mmHg): 141 : 88 : 97 Pulse: 91
== END 2022-03-02 09:39 | disposition home or self-care (01) ==
LOC: EDUNIT# → ED 13:20 → SDS 18:20 → FBP 20:30 → SDS 03-02 09:39
PROVIDERS: ATTEND Obstetrics & Gynecology
PROC: 10D17ZZ Extraction of Products of Conception, Retained, Via Natural or Artificial Opening (ICD-10-PCS; principal; 2022-03-01 19:00)
DX: O72.2 Delayed and secondary postpartum hemorrhage (principal); O86.12 Endometritis following delivery; O90.89 Other complications of the puerperium, not elsewhere classified; R03.0 Elevated blood-pressure reading, without diagnosis of hypertension; R10.31 Right lower quadrant pain; R79.89 Other specified abnormal findings of blood chemistry; O99.215 Obesity complicating the puerperium; Z20.822 Contact with and (suspected) exposure to COVID-19
CPT/HCPCS: 36415; 59160; 74176; 76830; 76856; 80053; 81001; 82239; 82565; 82570; 83690; 84156; 84450; 84460; 84550; 85025; 86850; 86900; 86901; 87633; 96365; 96375; 96376; 99284; 99285; A9270; J0131; J0330; J1170; J7040; J7120; 81003; 87086

== ENCOUNTER 2022-04-21 11:56 | Emergency (ER) | payer OTHER ==
--- NOTE | 2022-04-21 13:24 | ED Physician Documentation ---
History of Present Illness - Stated complaint Stated Complaint: FEVER - Chief complaint Chief Complaint: General - Additonal information Additional information: 37-year-old female presents emergency department for evaluation of concerns of left breast mastitis. Reports that yesterday she began having some tenderness at around the 11:51 jojo on her left breast and has developed some mild erythema. She is continuing to try and breast-feed through it. She is also begun to report some generalized body aches high fevers and ear pain with congestion. She is currently breast-feeding a 2-month-old infant. She states that with her previous 5 children she is never had an issue with mastitis. No nausea or vomiting. She reports a temperature of 107 yesterday afternoon. Review of Systems Constitutional: reports: Fever, Myalgias Eyes: reports: Reviewed and negative Ears: reports: Reviewed and negative Nose: reports: Congestion Throat: reports: Reviewed and negative Cardiac: reports: Reviewed and negative Respiratory: reports: Reviewed and negative GI: reports: Reviewed and negative Skin: reports: Lesions PD PAST MEDICAL HISTORY - Past Medical History Cardiovascular: None Respiratory: None Neuro: Migraines Endocrine/Autoimmune: None GI: GERD FRINGE WEAVER: Other : None HEENT: None Psych: None Musculoskeletal: Fibromyalgia Derm: None - Past Surgical History Past Surgical History: Yes General: Cholecystectomy, Appendectomy /FRINGE WEAVER: Breast implants HEENT: Tonsil/Adenoidectomy Derm: Other - Present Medications Home Medications: Ambulatory Orders Medication Instructions Recorded Confirmed Promethazine [Phenergan] 25 - 50 mg PO Q6H PRN #10 tab 10/08/17 03/01/22 No122/Iron/Folic Acid 1 each PO DAILY #30 tablet 11/05/17 [ Multi Tablet] Labetalol [Trandate] 200 mg PO BID 11/23/19 03/01/22 Venlafaxine ER [Effexor ER] 75 mg PO DAILY 11/23/19 03/01/22 Cetirizine HCl [Zyrtec] 10 mg ORAL DAILY 03/01/22 03/01/22 Fluoxetine HCl [Prozac] 20 mg PO DAILY 03/01/22 03/01/22 HYDROcod/ACETAM 5/325 [[place] 5/325] 1 tablet PO Q6H PRN 03/01/22 03/01/22 Acetaminophen [Acetaminophen Extra 1,000 mg PO Q8H PRN #60 tablet 03/02/22 Strength] HYDROcod/ACETAM 5/325 [[place] 5/325] 1 tab PO Q6H PRN #20 tablet 03/02/22 Ibuprofen [Motrin] 600 mg PO Q6H PRN #30 tab 03/02/22 oxyCODONE [Roxicodone] 2.5 - 5 mg PO Q4H PRN #24 tablet 03/02/22 Clindamycin [Cleocin] 450 mg PO TID 7 Days #63 cap 04/21/22 HYDROcod/ACETAM 5/325 [[place] 5/325] 1 tablet PO BID PRN #10 tablet 04/21/22 - Allergies Allergies/Adverse Reactions: Allergies Allergy/AdvReac Type Severity Reaction Status Date / Time Penicillins Allergy Severe anaphalaxis Verified 04/21/22 12:10 cephalexin monohydrate * Allergy Mild Rash Verified 04/21/22 12:10 [From Keflex] latex Allergy Mild Rash Verified 04/21/22 12:10 levofloxacin [From Levaquin] Allergy Mild Rash Verified 04/21/22 12:10 ondansetron HCl * Allergy Mild Rash Verified 04/21/22 12:10 [From Zofran (as hydrochloride)] vancomycin Allergy Rash Verified 04/21/22 12:10 morphine AdvReac Intermediate Anxiety Verified 04/21/22 12:10 oxycodone HCl * AdvReac Mild nausea/vomi Verified 04/21/22 12:10 [From Percocet] ting prochlorperazine AdvReac Unknown Verified 04/21/22 12:10 [From Compazine] - Social History Does the pt smoke?: No Smoking Status: Never smoker Does the pt drink ETOH?: No Does the pt have substance abuse?: No - Immunizations Immunizations are current?: Yes - POLST Patient has POLST: No PD ED PE NORMAL - General General: Alert and oriented X 3, No acute distress, Well developed/nourished - HEENT HEENT: Atraumatic, Moist mucous membranes, Pharynx benign - Neck Neck: Supple, no meningeal sign, No adenopathy - Cardiac Cardiac: RRR, No murmur - Respiratory Respiratory: No respiratory distress, Clear bilaterally - Abdomen Abdomen: Normal bowel sounds, Soft - Back Back: No CVA TTP - Derm Derm: Normal color, Warm and dry, No rash, Other (Mild tenderness and erythema between 9 and noon on the left breast. No fluctuance was noted.) - Extremities Extremities: No deformity, No tenderness to palpate, Normal ROM s pain - Neuro Neuro: Alert and oriented X 3, breaker unit assembler 2-12 intact Eye Opening: Spontaneous Motor: Obeys Commands Verbal: Oriented GCS Score: 15 Results - Vitals Vitals: Vital Signs - 24 hr 04/21/22 04/21/22 12:05 13:29 Temperature 36.8 C 37.6 C Heart Rate 82 86 Respiratory 18 16 Rate Blood Pressure 139/90 H 142/99 H O2 Saturation 99 99 Oxygen O2 Source Room air - Labs Labs: Laboratory Tests 04/21/22 13:30 Nasal Adenovirus (PCR) NOT DETECTED Nasal B. parapertussis DNA (PCR) NOT DETECTED Nasal Coronavir 229E PCR NOT DETECTED Nasal Coronavir HKU1 PCR NOT DETECTED Nasal Coronavir NL63 PCR NOT DETECTED Nasal Coronavir OC43 PCR NOT DETECTED Nasal Enterovir/Rhinovir PCR NOT DETECTED Nasal Influenza B PCR NOT DETECTED Nasal Influenza A PCR NOT DETECTED Nasal Parainfluen 1 PCR NOT DETECTED Nasal Parainfluen 2 PCR NOT DETECTED Nasal Parainfluen 3 PCR NOT DETECTED Nasal Parainfluen 4 PCR NOT DETECTED Nasal RSV (PCR) NOT DETECTED Nasal B.pertussis DNA PCR NOT DETECTED Nasal C.pneumoniae (PCR) NOT DETECTED Serge Human Metapneumo PCR NOT DETECTED Nasal M.pneumoniae (PCR) NOT DETECTED Nasal SARS-CoV-2 (PCR) NOT DETECTED PD MEDICAL DECISION MAKING - ED course Complexity details: reviewed results, re-evaluated patient, considered jose frausto d/w patient ED course: 37-year-old female presents emergency department for evaluation of 24 hours left breast pain and reported fever up to 107. She also has some bilateral ear pain and generalized myalgias. Though the exam of the breast is consistent with early mastitis I am concerned about the generalized myalgias and fever could be a sign of early flulike illness. She does have a high risk at home that she is breast-feeding therefore respiratory PCR is pending. If she is influenza A positive she would be within the window of treatment to consider Tamiflu and patient would like treatment if she is positive. In the short-term we will start her on clindamycin for treatment of the mastitis. Unfortunately she has hives and allergies to cephalosporins, penicillins as well as Bactrim. I discussed the risk of C. difficile diarrhea with her. She is encouraged to eat yogurt while taking clindamycin 1645: Respiratory PCR is negative for influenza and all viral markers. This was communicated with the patient via phone. Departure - Departure Disposition: 01 Home, Self Care Clinical Impression: Acute mastitis of left breast, Flu-like symptoms Condition: Stable Record reviewed to determine appropriate education?: Yes Prescriptions: Clindamycin [Cleocin] 450 mg PO TID 7 Days #63 cap HYDROcod/ACETAM 5/325 [[place] 5/325] 1 tablet PO BID PRN #10 tablet PRN Reason: Pain Comments: Nell you came to the emergency department because you have developed some pain and redness and swelling of your left breast. This is consistent with acute mastitis. In order to help manage this I would like you to place a warm compress over the breast for 10 minutes 3 times a day. Please continue to pump or breast-feed through the breast as this will be effective at relieving pain and obstruction. However to treat the infection I have started you on clindamycin. This is a medication that can be transferred into breastmilk though typically considered at lower quantities. You do run the risk of developing a type of back diarrhea called C. difficile. In order to help minimize this I would like you to begin taking lactobacillus or acidophilus tablets once or twice daily or eat a cup or 2 of natural yogurt. You do have some generalized body aches congestion and fever that I think is not consistent with mastitis. We are sending a respiratory panel to check for influenza. Because you are young at home is high risk if you are influenza positive I would recommend that we institute treatment with the Tamiflu. You will be notified if your respiratory culture is positive by later this evening and a prescription would [facility]. I would expect that the pain in the breast, swelling and redness is markedly better over the next 48 to 72 hours when she start the antibiotics if you find that the symptoms or not improving please return to the ER for a second evaluation. Discharge Date/Time: 04/21/22 13:43
[2022-04-21 13:29] VITALS: BP 142/99
[2022-04-21 14:29] LABS: B. PARAPERTUSSIS- RESP PCR PAN NOT DETECTED; B. PERTUSSIS- RESP PCR PANEL NOT DETECTED; C. PNEUMONIAE- RESP PCR PANEL NOT DETECTED; CORONAVIRUS 229E-RESP PCR NOT DETECTED; CORONAVIRUS HKU1-RESP PCR NOT DETECTED; CORONAVIRUS NL63-RESP PCR NOT DETECTED; CORONAVIRUS OC43-RESP PCR NOT DETECTED; HUMAN METAPNEUMOVIRUS NOT DETECTED; INFLUENZA A- RESP PCR PANEL NOT DETECTED; INFLUENZA B - RESP PCR PANEL NOT DETECTED; M. PNEUMONIAE- RESP PCR PANEL NOT DETECTED; PARAINFLUENZA VIRUS 1 NOT DETECTED; PARAINFLUENZA VIRUS 2 NOT DETECTED; PARAINFLUENZA VIRUS 3 NOT DETECTED; PARAINFLUENZA VIRUS 4 NOT DETECTED; RHINOVIRUS/ENTEROVIRUS NOT DETECTED; RSV- RESP PCR PANEL NOT DETECTED; SARS-CoV-2 -RESP PCR PANEL NOT DETECTED
== END 2022-04-21 13:43 | disposition home or self-care (01) ==
LOC: ED 11:56
DX: N61.0 Mastitis without abscess (principal); R50.9 Fever, unspecified; H92.03 Otalgia, bilateral; M79.18 Myalgia, other site; Z88.1 Allergy status to other antibiotic agents; Z88.0 Allergy status to penicillin
CPT/HCPCS: 87633; 99283; 99284

== ENCOUNTER 2022-05-18 16:52 | Emergency (ER) | payer OTHER ==
[2022-05-18] MEDS ORDERED: oxyCODONE/ACET 5/325 Prepack 4 PO STA (17:55)
[2022-05-18] MEDS ORDERED: DEXAMETHASONE 10 MG/ML VIAL PO STA (17:55)
[2022-05-18] MEDS ORDERED: CHERRY SYRUP 10 ML UDC PO ONE (17:55)
--- NOTE | 2022-05-18 17:56 | ED Physician Documentation ---
PD HPI BACK PAIN - Stated complaint Stated Complaint: BACK PX - Chief complaint Chief Complaint: Back Pain - History obtained from History obtained from: Patient - Additional information Additional information: Patient is a 37-year-old female presenting for evaluation of low back pain at that is been worsening for the past 4 to 5 days that radiates to bilateral hips. She has had similar back pain since delivery of her youngest child 2 months ago.She has been using ibuprofen, acetaminophen, Flexeril without any improvement as well as lidocaine patches. Pain is worse with movements and ambulation. She denies fever, chest pain, difficulty breathing, abdominal pain, vomiting, dysuria. She denies vaginal bleeding or discharge. She denies bowel or bladder incontinence.She reports having An MRI at [facility] In the past which showed herniated disks.She denies any recent trauma or injury. She is unclear of any activities That would have exacerbated her symptoms here recently. Review of Systems Constitutional: denies: Fever Cardiac: denies: Chest pain / pressure Respiratory: denies: Dyspnea GI: denies: Abdominal Pain, Vomiting Musculoskeletal: reports: Back pain Neurologic: denies: Headache PD PAST MEDICAL HISTORY - Past Medical History Cardiovascular: None Respiratory: None Neuro: Migraines Endocrine/Autoimmune: None GI: GERD CALENDER TENDER: Other : None HEENT: None Psych: None Musculoskeletal: Fibromyalgia Derm: None - Past Surgical History Past Surgical History: Yes General: Cholecystectomy, Appendectomy /CALENDER TENDER: Breast implants HEENT: Tonsil/Adenoidectomy Derm: Other - Present Medications Home Medications: Ambulatory Orders Medication Instructions Recorded Confirmed Promethazine [Phenergan] 25 - 50 mg PO Q6H PRN #10 tab 10/08/17 03/01/22 No122/Iron/Folic Acid 1 each PO DAILY #30 tablet 11/05/17 [ Multi Tablet] Labetalol [Trandate] 200 mg PO BID 11/23/19 03/01/22 Venlafaxine ER [Effexor ER] 75 mg PO DAILY 11/23/19 03/01/22 Cetirizine HCl [Zyrtec] 10 mg ORAL DAILY 03/01/22 03/01/22 Fluoxetine HCl [Prozac] 20 mg PO DAILY 03/01/22 03/01/22 HYDROcod/ACETAM 5/325 [[place] 5/325] 1 tablet PO Q6H PRN 03/01/22 03/01/22 Acetaminophen [Acetaminophen Extra 1,000 mg PO Q8H PRN #60 tablet 03/02/22 Strength] HYDROcod/ACETAM 5/325 [[place] 5/325] 1 tab PO Q6H PRN #20 tablet 03/02/22 Ibuprofen [Motrin] 600 mg PO Q6H PRN #30 tab 03/02/22 oxyCODONE [Roxicodone] 2.5 - 5 mg PO Q4H PRN #24 tablet 03/02/22 Clindamycin [Cleocin] 450 mg PO TID 7 Days #63 cap 04/21/22 HYDROcod/ACETAM 5/325 [[place] 5/325] 1 tablet PO BID PRN #10 tablet 04/21/22 - Allergies Allergies/Adverse Reactions: Allergies Allergy/AdvReac Type Severity Reaction Status Date / Time Penicillins Allergy Severe anaphalaxis Verified 04/21/22 12:10 cephalexin monohydrate * Allergy Mild Rash Verified 04/21/22 12:10 [From Keflex] latex Allergy Mild Rash Verified 04/21/22 12:10 levofloxacin [From Levaquin] Allergy Mild Rash Verified 04/21/22 12:10 ondansetron HCl * Allergy Mild Rash Verified 04/21/22 12:10 [From Zofran (as hydrochloride)] vancomycin Allergy Rash Verified 04/21/22 12:10 morphine AdvReac Intermediate Anxiety Verified 04/21/22 12:10 oxycodone HCl * AdvReac Mild nausea/vomi Verified 04/21/22 12:10 [From Percocet] ting prochlorperazine AdvReac Unknown Verified 04/21/22 12:10 [From Compazine] - Social History Does the pt smoke?: No Smoking Status: Never smoker Does the pt drink ETOH?: No Does the pt have substance abuse?: No - Immunizations Immunizations are current?: Yes - POLST Patient has POLST: No PD ED PE NORMAL - General General: Alert and oriented X 3, No acute distress, Well developed/nourished - HEENT HEENT: Atraumatic, Moist mucous membranes, Pharynx benign - Neck Neck: Supple, no meningeal sign - Cardiac Cardiac: RRR, No murmur - Respiratory Respiratory: No respiratory distress, Clear bilaterally - Abdomen Abdomen: Soft, Non tender, Non distended - Back Back: Other (Mild midline low lumbar tenderness to palpation, No step-offs, no erythema) - Derm Derm: Warm and dry - Extremities Extremities: No deformity, No calf tenderness / cord, Other (Positive straight leg raise on the right; Pedal pulses intact; Able to ambulate to restroom) - Neuro Neuro: Alert and oriented X 3, No motor deficit, No sensory deficit, Normal speech Results - Vitals Vitals: Vital Signs - 24 hr 05/18/22 17:04 Temperature 36.4 C L Heart Rate 80 Respiratory 20 Rate Blood Pressure 150/99 H O2 Saturation 99 Oxygen O2 Source Room air - Labs Labs: Laboratory Tests 05/18/22 18:00 Urine Color YELLOW Urine Clarity CLEAR Urine pH 7.0 Ur Specific Eleanor 1.020 Urine Protein NEGATIVE Urine Glucose (UA) NEGATIVE Urine Ketones TRACE Urine Occult Blood NEGATIVE Urine Nitrite NEGATIVE Urine Bilirubin NEGATIVE Urine Urobilinogen 0.2 (NORMAL) Ur Leukocyte Esterase NEGATIVE Ur Microscopic Review NOT INDICATED Urine Culture Comments NOT INDICATED Urine HCG, Qual NEGATIVE PD MEDICAL DECISION MAKING - ED course Complexity details: reviewed results, re-evaluated patient, d/w patient ED course: Patient is a 37-year-old presenting for evaluation of low back pain that has been ongoing for several months but worsening over the past few days.It does radiate to bilateral hips with right greater than left. She has no red flag signs or symptoms in regards to her back pain to suggest cord compression, cauda equina, epidural hematoma or abscess. She is afebrile, normal neuro exam, ambulating.She reports no improvement with medications that she is used at home includingAcetaminophen, ibuprofen, Flexeril and lidocaine patches. Patient was not forthcoming initially that she has been on pain medications for several months from her PCP. It appears that most of her prescriptions are from her PCP with 1 prescription from the ER with a bout of mastitis. She did just recently fill a prescription for [place] Several days ago. When I asked her about this prescription she states that she had run out sooner because her has ulcerative colitis and he had been using some of her pills.She says that her doctor has says that this is okay for her to share with her .I reiterated that narcotic medication should not be shared among family members and that each person should have their own prescription if they are requiring controlled substances.I explained that she would have a small amount to go home with this evening but that I would not provide any further prescriptions. Recommended that she have follow-up with her PCP and may need a referral to pain management. She then tells me that a referral to pain management is still in the works.Patient's urine is negative for infection and she is not currently . Patient is counseled on concerning symptoms to return for. Departure - Departure Disposition: Home, Self Care Clinical Impression: Low back pain Qualifiers: Chronicity: acute Back pain laterality: bilateral Sciatica presence: with sciatica Sciatica laterality: sciatica of right side Qualified Code(s): M54.41 - Lumbago with sciatica, right side Condition: Stable Instructions: ED Back Care Tips Follow-Up: ELIE MOLINA DO [Primary Care Provider] - Comments: You were evaluated for low back pain. We have given you a small amount of narcotic pain medication to take home this evening but it appears that you are usually getting pain medications from your primary care doctor. Do not share your pain medications with anyone else as this may cause you to run out sooner than that What you are supposed to. I would recommend follow-up with a pain management doctor. We did give you a dose of a steroid which is a long-acting steroid and should last for the next several days.If you have any worsening symptoms such as loss of bowel or bladder control then please return to the emergency department. I am prescribing a short course of narcotic pain medication for you. These are potentially dangerous and addictive medications that should be used carefully. These medications may constipate you. Take an [id number] stool softener (docusate) twice daily with plenty of water while taking these medications. If you go 24 hours without a bowel movement, take [id number] miralax, per package instructions. Do not drink or drive while taking these medications. If you received narcotic or sedating medications while in the emergency department, do not drive for 24 hours. Store this medication in a safe, secure place and out of reach of children. It is a violation of federal law to give or sell this medication to another person or to use in a manner other than prescribed. The ED will not refill narcotic prescriptions, including prescriptions lost or stolen. To dispose of unwanted medications: 1. [facility] at [address] in [place] has a medication drop box. They accept prescription medications (in pill form) Thursday through Thursday 9:00 a.m. to 5:00 p.m. 2. The [facility] [employer] accepts prescription medications (in pill form only) for disposal year round. Call for more information. 3. Contact the [facility] for the next [facility] sponsored prescription drug collection event. , [phone], or [phone]; Note that many narcotic pain relievers also contain Tylenol/acetaminophen. Please ensure that your total dose of acetaminophen from all sources does not exceed 3 g (3000 mg) per day.
[2022-05-18 18:18] LABS: BILIRUBIN,URINE NEGATIVE (NEGATIVE); GLUCOSE, URINE (UA) NEGATIVE (NEGATIVE); KETONES,URINE (UA) TRACE mg/dL (NEGATIVE); LEUKOCYTE ESTERASE, URINE NEGATIVE (NEGATIVE); NITRITE,URINE NEGATIVE (NEGATIVE); OCCULT BLOOD,URINE NEGATIVE (NEGATIVE); PROTEIN,URINE NEGATIVE (NEGATIVE); UROBILINOGEN,URINE 0.2 (NORMAL) E.U./dL (NORMAL)
[2022-05-18 18:19] LABS: CLARITY,URINE CLEAR (CLEAR); HCG UR QUAL NEGATIVE
[2022-05-18 18:37] VITALS: BP 148/98
== END 2022-05-18 18:34 | disposition home or self-care (01) ==
LOC: ED 16:52
DX: M54.41 Lumbago with sciatica, right side (principal)
CPT/HCPCS: 81003; 81025; 99282; 99283; A9270; 81001; 87086

== ENCOUNTER 2022-09-26 16:11 | Outpatient (CLI) | payer OTHER ==
--- NOTE | 2022-09-26 17:38 | XRAY Report ---
PROCEDURE: Wrist 4 View RT INDICATIONS: OTHER SPECIFIED SPRAIN OF RIGHT WRIST TECHNIQUE: 4 views of the wrist were acquired. COMPARISON: None. FINDINGS: Bones: No fractures or dislocations. No suspicious bony lesions. Scaphoid view: Intact scaphoid. Soft tissues: No suspicious soft tissue calcifications or masses. IMPRESSION: Intact right wrist. Reviewed by: Corine Ibarra MD on 09/26/2022 5:37 PM PDT Approved by: Corine Ibarra MD on 09/26/2022 5:37 PM PDT Station ID: [id number]
== END 2022-09-26 16:12 | disposition home or self-care (01) ==
LOC: DI 16:11
PROVIDERS: ATTEND Family Medicine
DX: S63.591A Other specified sprain of right wrist, initial encounter (principal)

== ENCOUNTER 2023-06-04 15:45 | Emergency (ER) | payer OTHER ==
[2023-06-04 17:20] LABS: B. PARAPERTUSSIS- RESP PCR PAN NOT DETECTED; B. PERTUSSIS- RESP PCR PANEL NOT DETECTED; C. PNEUMONIAE- RESP PCR PANEL NOT DETECTED; CORONAVIRUS 229E-RESP PCR NOT DETECTED; CORONAVIRUS HKU1-RESP PCR NOT DETECTED; CORONAVIRUS NL63-RESP PCR NOT DETECTED; CORONAVIRUS OC43-RESP PCR NOT DETECTED; HUMAN METAPNEUMOVIRUS NOT DETECTED; INFLUENZA A- RESP PCR PANEL NOT DETECTED; INFLUENZA B - RESP PCR PANEL NOT DETECTED; M. PNEUMONIAE- RESP PCR PANEL NOT DETECTED; PARAINFLUENZA VIRUS 1 NOT DETECTED; PARAINFLUENZA VIRUS 2 NOT DETECTED; PARAINFLUENZA VIRUS 3 NOT DETECTED; PARAINFLUENZA VIRUS 4 NOT DETECTED; RHINOVIRUS/ENTEROVIRUS NOT DETECTED; RSV- RESP PCR PANEL NOT DETECTED; SARS-CoV-2 -RESP PCR PANEL NOT DETECTED
--- NOTE | 2023-06-04 18:44 | ED Physician Documentation ---
PD HPI URI - Stated complaint Stated Complaint: CHEST PX/SOA/DIZZY - Chief complaint Chief Complaint: Resp - History obtained from History obtained from: Patient - Additional information Additional information: 38-year-old female presents with occasional cough and thick green sputum. She feels like she is "drowning," and has a lot of phlegm in her lungs that she needs to cough up but cannot. She has occasional cough And mild shortness of breath. She denies any chest pain, no fever, no nasal congestion or sore throat, has had a little bit of diarrhea no abdominal pain vomiting or urinary symptoms. She states that she gets pneumonia every time she gets "like this." She does not have a history of heart failure, no prior heart disease. Denies any lower extremity edema, no unexpected weight gain. 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 HEENT: None Psych: None Musculoskeletal: Fibromyalgia Derm: None - Past Surgical History Past Surgical History: Yes General: Cholecystectomy, Appendectomy /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 SPECIALIST: Breast implants HEENT: Tonsil/Adenoidectomy Derm: Other - Present Medications Home Medications: Ambulatory Orders Medication Instructions Recorded Confirmed Promethazine [Phenergan] 25 - 50 mg PO Q6H PRN #10 tab 10/08/17 03/01/22 No122/Iron/Folic Acid 1 each PO DAILY #30 tablet 11/05/17 [ Multi Tablet] Labetalol [Trandate] 200 mg PO BID 11/23/19 03/01/22 Venlafaxine ER [Effexor ER] 75 mg PO DAILY 11/23/19 03/01/22 Cetirizine HCl [Zyrtec] 10 mg ORAL DAILY 03/01/22 03/01/22 Fluoxetine HCl [Prozac] 20 mg PO DAILY 03/01/22 03/01/22 HYDROcod/ACETAM 5/325 [[place] 5/325] 1 tablet PO Q6H PRN 03/01/22 03/01/22 Acetaminophen [Acetaminophen Extra 1,000 mg PO Q8H PRN #60 tablet 03/02/22 Strength] HYDROcod/ACETAM 5/325 [[place] 5/325] 1 tab PO Q6H PRN #20 tablet 03/02/22 Ibuprofen [Motrin] 600 mg PO Q6H PRN #30 tab 03/02/22 oxyCODONE [Roxicodone] 2.5 - 5 mg PO Q4H PRN #24 tablet 03/02/22 Clindamycin [Cleocin] 450 mg PO TID 7 Days #63 cap 04/21/22 HYDROcod/ACETAM 5/325 [[place] 5/325] 1 tablet PO BID PRN #10 tablet 04/21/22 clindamycin HCL [Cleocin HCl] 300 mg PO QID #20 cap 10/18/22 Azithromycin 250 mg PO DAILY #6 tablet 06/04/23 - Allergies Allergies/Adverse Reactions: Allergies Allergy/AdvReac Type Severity Reaction Status Date / Time Penicillins Allergy Severe anaphalaxis Verified 06/04/23 16:22 cephalexin monohydrate * Allergy Mild Rash Verified 06/04/23 16:22 [From Keflex] latex Allergy Mild Rash Verified 06/04/23 16:22 levofloxacin [From Levaquin] Allergy Mild Rash Verified 06/04/23 16:22 ondansetron HCl * Allergy Mild Rash Verified 06/04/23 16:22 [From Zofran (as hydrochloride)] vancomycin Allergy Rash Verified 06/04/23 16:22 morphine AdvReac Intermediate Anxiety Verified 06/04/23 16:22 oxycodone HCl * AdvReac Mild nausea/vomi Verified 06/04/23 16:22 [From Percocet] ting prochlorperazine AdvReac Unknown Verified 06/04/23 16:22 [From Compazine] - Social History Does the pt smoke?: No Smoking Status: Never smoker Does the pt drink ETOH?: No Does the pt have substance abuse?: No - Immunizations Immunizations are current?: Yes - POLST Patient has POLST: No PD ED PE NORMAL - Vitals Vital signs reviewed: Yes - General General: Alert and oriented X 3, No acute distress, Well developed/nourished - HEENT HEENT: Atraumatic, Pharynx benign - Neck Neck: Supple, no meningeal sign, No JVD - Cardiac Cardiac: RRR, No murmur - Respiratory Respiratory: No respiratory distress, Other (Left lower lobe crackles nonlabored) - Abdomen Abdomen: Normal bowel sounds, Soft, Non tender, Non distended - Derm Derm: Normal color, Warm and dry, No rash - Extremities Extremities: No deformity, No edema Results - Vitals Vitals: Vital Signs - 24 hr 06/04/23 16:15 Temperature 36.1 C L Heart Rate 69 Respiratory 17 Rate Blood Pressure 106/61 O2 Saturation 96 Oxygen O2 Source Room air - Labs Labs: Laboratory Tests 06/04/23 16:20 Nasal Adenovirus (PCR) NOT DETECTED Nasal B. parapertussis DNA (PCR) NOT DETECTED Nasal Coronavir 229E PCR NOT DETECTED Nasal Coronavir HKU1 PCR NOT DETECTED Nasal Coronavir NL63 PCR NOT DETECTED Nasal Coronavir OC43 PCR NOT DETECTED Nasal Enterovir/Rhinovir PCR NOT DETECTED Nasal Influenza B PCR NOT DETECTED Nasal Influenza A PCR NOT DETECTED Nasal Parainfluen 1 PCR NOT DETECTED Nasal Parainfluen 2 PCR NOT DETECTED Nasal Parainfluen 3 PCR NOT DETECTED Nasal Parainfluen 4 PCR NOT DETECTED Nasal RSV (PCR) NOT DETECTED Nasal B.pertussis DNA PCR NOT DETECTED Nasal C.pneumoniae (PCR) NOT DETECTED Serge Human Metapneumo PCR NOT DETECTED Nasal M.pneumoniae (PCR) NOT DETECTED Nasal SARS-CoV-2 (PCR) NOT DETECTED - Rads (name of study) No standard instances Relevant Findings:: Final report received PD Medical Decision Making - ED course Complexity details: reviewed results, re-evaluated patient, considered differential, d/w patient ED course: 38-year-old female presented with productive cough and shortness of breath. She is well-appearing here on physical exam, no acute distress, oxygen well on room air and afebrile nontoxic-appearing. She does have some crackles in her lungs, x-rays obtained And per my read appear fairly clear, possible mild left lower lobe early pneumonia. I am going to treat her for a early pneumonia given her symptoms and her sick green sputum. Her viral swab is negative. Blood work is not indicated today. Patient is stable for discharge home. Return precautions reviewed. Departure - Departure Disposition: 01 Home, Self Care Clinical Impression: Pneumonia Qualifiers: Pneumonia type: due to unspecified organism Laterality: left Lung location: lower lobe of lung Qualified Code(s): J18.9 - Pneumonia, unspecified organism Condition: Good Instructions: Pneumonia Dc Prescriptions: Azithromycin 250 mg PO DAILY #6 tablet Comments: Your viral panel is negative, there is no covid/flu or other viruses we test for. Your x-ray appears fairly clear, you have may have a mild early pneumonia in the left lower lobe and I am going to treat you with a course of azithromycin. You can take [id number] cough medicine, Tylenol or ibuprofen as needed and is stable hydrating it and get plenty of rest. Please follow-up with your primary doctor for no improvement in the next week or return to the ER if worsening.
[2023-06-04 18:54] VITALS: BP 109/72; O2SAT 99
--- NOTE | 2023-06-04 18:57 | XRAY Report ---
PROCEDURE: Chest 2V INDICATIONS: cough TECHNIQUE: 2 views of the chest were acquired. COMPARISON: None. FINDINGS: Surgical changes and devices: None. Lungs and pleura: No pleural effusions or pneumothorax. Lungs are clear. Mediastinum: Mediastinal contours appear normal. Heart size is normal. Bones and chest wall: No suspicious bony lesions. Overlying soft tissues appear unremarkable. IMPRESSION: No acute cardiopulmonary process. Reviewed by: Corine Ibarra MD on 06/04/2023 6:55 PM PST Approved by: Corine Ibarra MD on 06/04/2023 6:55 PM PST Station ID: [id number]
== END 2023-06-04 18:53 | disposition home or self-care (01) ==
LOC: ED 15:45
DX: J18.9 Pneumonia, unspecified organism (principal); Z11.52 Encounter for screening for COVID-19
CPT/HCPCS: 87633; 99284

== ENCOUNTER 2023-07-29 16:04 | Outpatient (CLI) | payer OTHER | END 2023-07-29 23:59 | disposition critical access hospital (66) | LOC: EMS 16:04 | DX: R07.9 Chest pain, unspecified (principal) | CPT/HCPCS: A0425; A0429 ==

== ENCOUNTER 2023-07-29 16:31 | Emergency (ER) | payer OTHER ==
--- NOTE | 2023-07-29 17:00 | XRAY Report ---
PROCEDURE: Chest 1V INDICATIONS: Chest Pain TECHNIQUE: One view of the chest was acquired. COMPARISON: None. FINDINGS: Surgical changes and devices: None. Lungs and pleura: No pleural effusions or pneumothorax. Mild patchy bilateral perihilar reticulonodu lar opacity Mediastinum: Mediastinal contours appear normal. Heart size is normal. Bones and chest wall: No suspicious bony lesions. Overlying soft tissues appear unremarkable. IMPRESSION: Mild atypical pneumonia. Reviewed by: Tamara Jeffers MD on 07/29/2023 4:59 PM PST Approved by: Tamara Jeffers MD on 07/29/2023 4:59 PM PST Station ID: [id number]
[2023-07-29 17:14] LABS: BASOPHILS % (AUTO) 0.4 %; EOSINOPHILS % (AUTO) 0.3 %; HCT - HEMATOCRIT 44.6 % (37.0-47.0); HGB - HEMOGLOBIN 15.1 g/dL (12.0-16.0); LYMPHOCYTES % (AUTO) 36.2 %; MEAN CORPUSCULAR HEMOGLOBIN 30.7 pg (27.0-31.0); MEAN CORPUSCULAR HGB CONC 33.9 g/dL (32.0-36.0); MEAN CORPUSCULAR VOLUME 90.7 fL (81.0-99.0); MEAN PLATELET VOLUME 9.6 fL (7.9-10.8); MONOCYTES % (AUTO) 5.7 %; NEUTROPHILS % (AUTO) 56.5 %; PLT - PLATELET COUNT 338 10^3/uL (130-450); RED BLOOD COUNT 4.92 10^6/uL (4.20-5.40); RED CELL DISTRIBUTION WIDTH 12.6 % (12.0-15.0); WHITE BLOOD COUNT 15.8 x10^3/uL (4.8-10.8)
[2023-07-29 17:19] LABS: SLIDE REVIEW? Indicated
[2023-07-29 17:20] LABS: ABNORMAL LYMPHS % (MANUAL) 0 %; BAND NEUTROPHILS % (MANUAL) 0 %
[2023-07-29 17:31] LABS: TROPONIN I HIGH SENSITIVITY 3.2 ng/L (2.3-14.8)
[2023-07-29 17:45] LABS: LYMPHOCYTES # (MANUAL) 5.8 10^3/uL (1.5-3.5); LYMPHOCYTES % (MANUAL) 30 %; MONOCYTES # (MANUAL) 1.4 10^3/uL (0.0-1.0); NEUTROPHILS # (MANUAL) 8.5 10^3/uL (1.5-6.6); REACTIVE LYMPHS % (MANUAL) 7 %
[2023-07-29 17:46] LABS: DIFFERENTIAL COMMENT MANUAL DIFFERENTIAL; PLATELET ESTIMATE, MANUAL NORMAL (130-450,000) (NORMAL); PLATELET MORPHOLOGY NORMAL APPEARANCE (NORMAL); RBC MORPHOLOGY (MULTIPLE) NORMAL APPEARANCE (NORMAL)
[2023-07-29 17:49] LABS: ALBUMIN 3.9 g/dL (3.2-5.5); ALBUMIN/GLOBULIN RATIO 1.4 (1.0-2.2); BILIRUBIN,TOTAL 0.3 mg/dL (0.2-1.0); CALCIUM 9.1 mg/dL (8.5-10.3); CREATININE 0.5 mg/dL (0.6-1.3); POTASSIUM 3.8 mmol/L (3.5-4.5); TOTAL PROTEIN 6.7 g/dL (6.4-8.9)
--- NOTE | 2023-07-29 18:13 | ED Physician Documentation ---
PD HPI CHEST PAIN - Stated complaint Stated Complaint: CHEST PX - Chief complaint Chief Complaint: Cardiac - Additional information Additional information: 38-year-old female presents emergency department for what she describes as chest pain. She said that she has had multiple episodes and bouts of pneumonia within the last 12 months last time she was on antibiotics for pneumonia was in May and she also recently was just diagnosed with a sinus infection where she was on antibiotics again for that and is currently finishing a round of steroids and is on dexamethasone. Patient says that she is fighting an upper respiratory infection right now and has been feeling like she is having a harder time breathing taking a deep breath in and feeling just a lingering pain in her chest. 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: Breast implants HEENT: Tonsil/Adenoidectomy Derm: Other - Present Medications Home Medications: Ambulatory Orders Medication Instructions Recorded Confirmed Promethazine [Phenergan] 25 - 50 mg PO Q6H PRN #10 tab 10/08/17 03/01/22 No122/Iron/Folic Acid 1 each PO DAILY #30 tablet 11/05/17 [ Multi Tablet] Labetalol [Trandate] 200 mg PO BID 11/23/19 03/01/22 Venlafaxine ER [Effexor ER] 75 mg PO DAILY 11/23/19 03/01/22 Cetirizine HCl [Zyrtec] 10 mg ORAL DAILY 03/01/22 03/01/22 Fluoxetine HCl [Prozac] 20 mg PO DAILY 03/01/22 03/01/22 HYDROcod/ACETAM 5/325 [[place] 5/325] 1 tablet PO Q6H PRN 03/01/22 03/01/22 Acetaminophen [Acetaminophen Extra 1,000 mg PO Q8H PRN #60 tablet 03/02/22 Strength] HYDROcod/ACETAM 5/325 [[place] 5/325] 1 tab PO Q6H PRN #20 tablet 03/02/22 Ibuprofen [Motrin] 600 mg PO Q6H PRN #30 tab 03/02/22 oxyCODONE [Roxicodone] 2.5 - 5 mg PO Q4H PRN #24 tablet 03/02/22 Clindamycin [Cleocin] 450 mg PO TID 7 Days #63 cap 04/21/22 HYDROcod/ACETAM 5/325 [[place] 5/325] 1 tablet PO BID PRN #10 tablet 04/21/22 clindamycin HCL [Cleocin HCl] 300 mg PO QID #20 cap 10/18/22 Azithromycin 250 mg PO DAILY #6 tablet 06/04/23 - Allergies Allergies/Adverse Reactions: Allergies Allergy/AdvReac Type Severity Reaction Status Date / Time Penicillins Allergy Severe anaphalaxis Verified 07/29/23 16:39 cephalexin monohydrate * Allergy Mild Rash Verified 07/29/23 16:39 [From Keflex] latex Allergy Mild Rash Verified 07/29/23 16:39 levofloxacin [From Levaquin] Allergy Mild Rash Verified 07/29/23 16:39 ondansetron HCl * Allergy Mild Rash Verified 07/29/23 16:39 [From Zofran (as hydrochloride)] vancomycin Allergy Rash Verified 07/29/23 16:39 morphine AdvReac Intermediate Anxiety Verified 07/29/23 16:39 oxycodone HCl * AdvReac Mild nausea/vomi Verified 07/29/23 16:39 [From Percocet] ting prochlorperazine AdvReac Unknown Verified 07/29/23 16:39 [From Compazine] - Social History Does the pt smoke?: No Smoking Status: Never smoker Does the pt drink ETOH?: No Does the pt have substance abuse?: No - Immunizations Immunizations are current?: Yes - POLST Patient has POLST: No PD ED PE NORMAL - Vitals Vital signs reviewed: Yes - General General: Alert and oriented X 3, No acute distress, Well developed/nourished, Other - HEENT HEENT: Atraumatic, PERRL - Neck Neck: Supple, no meningeal sign, No adenopathy, No JVD - Cardiac Cardiac: RRR, No murmur, No gallop, Strong equal pulses - Respiratory Respiratory: No respiratory distress, Other (decreased breath sounds) - Abdomen Abdomen: Soft, Non tender - Back Back: No CVA TTP - Derm Derm: Normal color, Warm and dry, No rash - Extremities Extremities: No deformity, No edema - Psych Psych: Normal mood Results - Vitals Vitals: Vital Signs - 24 hr 07/29/23 07/29/23 07/29/23 16:34 18:39 20:54 Temperature 36.8 C Heart Rate 78 69 70 Respiratory 16 18 22 Rate Blood Pressure 160/108 H 154/109 H 159/114 H O2 Saturation 98 96 98 Oxygen O2 Source Room air - EKG (time done) 1637 EKG releavant findings:: EKG personally interpreted by author of this note. Relevant findings are: Rate: Rate (enter#) (66) Rhythm: NSR [place]: Normal Intervals: Normal IN QRS: Normal Ischemia: Normal ST segments Computer interpretation: Agree with computer - Labs Labs: Laboratory Tests 07/29/23 07/29/23 07/29/23 17:06 17:06 20:46 WBC 15.8 H RBC 4.92 Hgb 15.1 Hct 44.6 MCV 90.7 MCH 30.7 MCHC 33.9 RDW 12.6 Plt Count 338 MPV 9.6 Neut # (Auto) Not Reportable Lymph # (Auto) Not Reportable [place] # (Auto) Not Reportable Eos # (Auto) Not Reportable Baso # (Auto) Not Reportable Absolute Nucleated RBC Not Reportable Total Counted 100 Band Neuts % (Manual) 0 Reactive Lymphs % (Man) 7 Abnorm Lymph % (Manual) 0 Nucleated RBC % Not Reportable Neutrophils # (Manual) 8.5 H Lymphocytes # (Manual) 5.8 H Monocytes # (Manual) 1.4 H Eosinophils # (Manual) 0.0 Basophils # (Manual) 0.0 Differential Comment MANUAL DIFFERENTIAL Manual Slide Review Indicated Platelet Estimate NORMAL (130-450,000) Platelet Morphology NORMAL APPEARANCE RBC Morph Micro Appear NORMAL APPEARANCE Sodium 140 Potassium 3.8 Chloride 108 Carbon Dioxide 25 Anion Gap 7.0 BUN 12 Creatinine 0.5 L Estimated GFR (MDRD) 138 Glucose 98 Calcium 9.1 Total Bilirubin 0.3 AST 23 ALT 44 Alkaline Phosphatase 104 Troponin I High Sens 3.2 Total Protein 6.7 Albumin 3.9 Globulin 2.8 Albumin/Globulin Ratio 1.4 Lipase 50 Nasal Adenovirus (PCR) NOT DETECTED Nasal B. parapertussis DNA (PCR) NOT DETECTED Nasal Coronavir 229E PCR NOT DETECTED Nasal Coronavir HKU1 PCR NOT DETECTED Nasal Coronavir NL63 PCR NOT DETECTED Nasal Coronavir OC43 PCR NOT DETECTED Nasal Enterovir/Rhinovir PCR DETECTED A Nasal Influenza B PCR NOT DETECTED Nasal Influenza A PCR NOT DETECTED Nasal Parainfluen 1 PCR NOT DETECTED Nasal Parainfluen 2 PCR NOT DETECTED Nasal Parainfluen 3 PCR NOT DETECTED Nasal Parainfluen 4 PCR NOT DETECTED Nasal RSV (PCR) NOT DETECTED Nasal B.pertussis DNA PCR NOT DETECTED Nasal C.pneumoniae (PCR) NOT DETECTED Serge Human Metapneumo PCR NOT DETECTED Nasal M.pneumoniae (PCR) NOT DETECTED Nasal SARS-CoV-2 (PCR) NOT DETECTED - Rads (name of study) Chest x-ray Relevant Findings:: Final report received, EMP independent interpretation of test, Other (Mildly atypical pneumonia) PD Medical Decision Making - ED course ED course: 38-year-old female presents emergency department for chest pain. Labs are complete she does have a leukocytosis, WBC 15.8 with elevated neutrophils 8.5, elevated lymphocytes, 5.8, elevated monocytes 1.4. Her chemistry is overall unremarkable electrolytes are all within normal limits lipase is within normal limits. We also completed a chest x-ray which does reveal bilateral atypical pneumonia. Patient has multiple allergies including anaphylaxis with penicillin as well as an allergy to levofloxacin she said that she is taken in the past before for group B strep and was able to tolerate it with steroids and Benadryl. Unfortunately the viral swab is still pending so we decided to go ahead and treat her for pneumonia as if it is bacterial for now although it is most likely viral and we will call her with the results of her viral swab. She tolerated the levofloxacin just fine we gave her Benadryl with this levofloxacin she said she felt some itching did not see any hives or throat swelling reassure for over an hour after she received this medication. We will call the patient with the updated results if it ends up having some sort of positive virus we will not continue the levofloxacin outpatient. Addendum: Viral swab has come back positive for rhinovirus we will call the patient inform her to not continue the levofloxacin outpatient and to manage this symptomatically at home with supportive therapies. She was told last night and will be reminded to follow-up with her primary care provider for further evaluation and make sure that she is getting plenty of rest drinking plenty of fluids to help with recovery. Departure - Departure Disposition: 01 Home, Self Care Clinical Impression: Viral upper respiratory infection Instructions: ED Viral Syndrome Comments: Thank you for trusting us with your care as we discussed we have given you the first dose of levofloxacin here in the emergency department we are going to send a PCR swab to see if you have any sort of upper respiratory infection and if this comes back positive then he most likely does have viral pneumonia which does not require any antibiotics. If it comes back negative then we will pursue continuing the levofloxacin and I will send it to your preferred pharmacy. I will call you in an hour or 2 with the updated results of your viral panel and then we will go from there. Going home if you are still having some itching sensation from the levofloxacin you can take some Zyrtec for an additional antihistamine. Please come back to the emergency department for having any chest pain, worsening shortness of breath, ongoing fevers and chills, or any o ther concerning symptoms. Which she has been recovery. Forms: PCP List Discharge Date/Time: 07/29/23 20:55
[2023-07-29] MEDS: levoFLOXacin 750 MG TABLET PO STA ×2 (18:50→20:30)
[2023-07-29] MEDS: diphenhydrAMINE 25 MG CAPSULE PO STA (19:07)
[2023-07-29 20:58] VITALS: BP 159/114; O2SAT 98
[2023-07-29 21:52] LABS: CORONAVIRUS 229E-RESP PCR NOT DETECTED; CORONAVIRUS HKU1-RESP PCR NOT DETECTED; CORONAVIRUS NL63-RESP PCR NOT DETECTED; CORONAVIRUS OC43-RESP PCR NOT DETECTED; HUMAN METAPNEUMOVIRUS NOT DETECTED; INFLUENZA A- RESP PCR PANEL NOT DETECTED; RHINOVIRUS/ENTEROVIRUS DETECTED; SARS-CoV-2 -RESP PCR PANEL NOT DETECTED
[2023-07-29 21:53] LABS: B. PARAPERTUSSIS- RESP PCR PAN NOT DETECTED; B. PERTUSSIS- RESP PCR PANEL NOT DETECTED; C. PNEUMONIAE- RESP PCR PANEL NOT DETECTED; INFLUENZA B - RESP PCR PANEL NOT DETECTED; M. PNEUMONIAE- RESP PCR PANEL NOT DETECTED; PARAINFLUENZA VIRUS 1 NOT DETECTED; PARAINFLUENZA VIRUS 2 NOT DETECTED; PARAINFLUENZA VIRUS 3 NOT DETECTED; PARAINFLUENZA VIRUS 4 NOT DETECTED; RSV- RESP PCR PANEL NOT DETECTED
== END 2023-07-29 20:55 | disposition home or self-care (01) ==
LOC: EDUNIT# → ED 16:31
DX: J06.9 Acute upper respiratory infection, unspecified (principal); B97.89 Other viral agents as the cause of diseases classified elsewhere; I10 Essential (primary) hypertension; M79.7 Fibromyalgia; Z79.899 Other long term (current) drug therapy; Z88.0 Allergy status to penicillin
CPT/HCPCS: 36415; 71045; 80053; 83690; 84484; 85025; 87633; 93005; 99283; 99284; A9270